=== PATIENT | male | born 1940 | race Caucasian/White ===

== ENCOUNTER 2016-12-05 07:41 | Outpatient (CLI) | payer MEDICARE, OTHER | END 2016-12-05 07:42 | disposition home or self-care (01) | DX: E11.65 Type 2 diabetes mellitus with hyperglycemia (principal) ==

== ENCOUNTER 2017-01-07 15:50 | Outpatient (CLI) | payer MEDICARE, OTHER | END 2017-01-07 15:51 | DX: R19.7 Diarrhea, unspecified (principal) ==

== ENCOUNTER 2017-01-08 13:00 | Outpatient (CLI) | payer MEDICARE, OTHER | END 2017-01-08 13:01 | disposition home or self-care (01) | DX: R19.7 Diarrhea, unspecified (principal) ==

== ENCOUNTER 2017-03-16 10:03 | Outpatient (CLI) | payer MEDICARE, OTHER | END 2017-03-16 10:04 | disposition home or self-care (01) | DX: J98.11 Atelectasis (principal); J94.8 Other specified pleural conditions ==

== ENCOUNTER 2017-03-19 07:09 | Outpatient (CLI) | payer MEDICARE, OTHER ==
[2017-03-19 13:45] LABS: BASOPHILS # (AUTO) 0.1 10^3/uL (0.0-0.1); BASOPHILS % (AUTO) 0.8 %; EOSINOPHILS # (AUTO) 0.2 10^3/uL (0.0-0.7); EOSINOPHILS % (AUTO) 2.6 %; HCT - HEMATOCRIT 36.6 % (42.0-52.0); HGB - HEMOGLOBIN 12.7 g/dL (14.0-18.0); LYMPHOCYTES # (AUTO) 2.4 10^3/uL (1.5-3.5); LYMPHOCYTES % (AUTO) 37.4 %; MEAN CORPUSCULAR HEMOGLOBIN 29.4 pg (27.0-31.0); MEAN CORPUSCULAR HGB CONC 34.7 g/dL (32.0-36.0); MEAN CORPUSCULAR VOLUME 84.6 fL (80.0-94.0); MEAN PLATELET VOLUME 9.3 fL (7.4-11.4); MONOCYTES # (AUTO) 0.7 10^3/uL (0.0-1.0); MONOCYTES % (AUTO) 10.6 %; NEUTROPHILS # (AUTO) 3.1 10^3/uL (1.5-6.6); NEUTROPHILS % (AUTO) 48.6 %; NUCLEATED RED BLOOD CELLS AUTO 0.1 /100WBC; RED BLOOD COUNT 4.33 10^6/uL (4.70-6.10); RED CELL DISTRIBUTION WIDTH 14.7 % (12.0-15.0); UNCORRECTED WHITE BLOOD COUNT 6.5 x10^3/uL; WHITE BLOOD COUNT 6.5 x10^3/uL (4.8-10.8)
[2017-03-19 14:05] LABS: ALBUMIN/GLOBULIN RATIO 1.1 (1.0-2.2); BILIRUBIN,TOTAL 0.4 mg/dL (0.2-1.0); BUN - BLOOD UREA NITROGEN 22 mg/dL (6-20); CALCIUM 8.8 mg/dL (8.5-10.3); CARBON DIOXIDE - CO2 22 mmol/L (21-32); CHLORIDE 107 mmol/L (101-111); CHOL/HDL RATIO 4.1 (<5.0); CHOLESTEROL 132 mg/dL; CREATININE 1.1 mg/dL (0.6-1.2); GFR - MDRD 65 (>89); GLUCOSE 243 mg/dL (70-100); HDL CHOLESTEROL 32 mg/dL; LDL/HDL RATIO 0.9 (<3.6); POTASSIUM 4.7 mmol/L (3.5-5.0); SODIUM 137 mmol/L (135-145); TRIGLYCERIDES 362 mg/dL; VLDL CHOLESTEROL 72 mg/dL
[2017-03-19 14:19] LABS: HEMOGLOBIN A1C 0.98 g/dL
== END 2017-03-19 07:10 | disposition home or self-care (01) ==
LOC: LAB.WCP 07:09
PROVIDERS: ATTEND Family Medicine
DX: E11.9 Type 2 diabetes mellitus without complications (principal)
CPT/HCPCS: 36415; 80053; 80061; 83036; 85025

== ENCOUNTER 2017-04-27 09:00 | Outpatient (CLI) | payer MEDICARE, OTHER ==
[2017-04-27] MEDS ORDERED: ALBUTEROL NEB 2.5 MG/3 ML INH ONE (09:38)
== END 2017-04-27 09:01 | disposition home or self-care (01) ==
LOC: RT 09:00
PROVIDERS: ATTEND Internal Medicine Critical Care Medicine
DX: J44.9 Chronic obstructive pulmonary disease, unspecified (principal)
CPT/HCPCS: 94060; 94729; 94761; J7613

== ENCOUNTER 2017-10-19 07:25 | Outpatient (CLI) | payer MEDICARE, OTHER ==
[2017-10-19 13:28] LABS: BASOPHILS % (AUTO) 0.6 %; EOSINOPHILS # (AUTO) 0.2 10^3/uL (0.0-0.7); EOSINOPHILS % (AUTO) 2.7 %; HCT - HEMATOCRIT 36.7 % (42.0-52.0); HGB - HEMOGLOBIN 12.7 g/dL (14.0-18.0); LYMPHOCYTES # (AUTO) 2.5 10^3/uL (1.5-3.5); LYMPHOCYTES % (AUTO) 39.2 %; MEAN CORPUSCULAR HEMOGLOBIN 29.1 pg (27.0-31.0); MEAN CORPUSCULAR HGB CONC 34.7 g/dL (32.0-36.0); MEAN PLATELET VOLUME 8.7 fL (7.4-11.4); MONOCYTES # (AUTO) 0.7 10^3/uL (0.0-1.0); MONOCYTES % (AUTO) 10.9 %; NEUTROPHILS % (AUTO) 46.6 %; NUCLEATED RED BLOOD CELLS AUTO 0.1 /100WBC; RED BLOOD COUNT 4.36 10^6/uL (4.70-6.10); RED CELL DISTRIBUTION WIDTH 14.6 % (12.0-15.0); UNCORRECTED WHITE BLOOD COUNT 6.4 x10^3/uL; WHITE BLOOD COUNT 6.4 x10^3/uL (4.8-10.8)
[2017-10-19 13:58] LABS: BILIRUBIN,TOTAL 0.3 mg/dL (0.2-1.0); BUN - BLOOD UREA NITROGEN 28 mg/dL (6-20); CARBON DIOXIDE - CO2 22 mmol/L (21-32); CHLORIDE 106 mmol/L (101-111); CHOL/HDL RATIO 3.4 (<5.0); CHOLESTEROL 112 mg/dL; CREATININE 1.1 mg/dL (0.6-1.2); GFR - MDRD 65 (>89); GLUCOSE 167 mg/dL (70-100); HDL CHOLESTEROL 33 mg/dL; LDL/HDL RATIO 0.3 (<3.6); POTASSIUM 4.7 mmol/L (3.5-5.0); SODIUM 135 mmol/L (135-145); TOTAL PROTEIN 7.4 g/dL (6.7-8.2); TRIGLYCERIDES 342 mg/dL; VLDL CHOLESTEROL 68 mg/dL
[2017-10-19 14:12] LABS: THYROID STIMULATING HORMONE 6.37 uIU/mL (0.34-5.60)
[2017-10-19 14:18] LABS: HEMOGLOBIN A1C 0.92 g/dL
== END 2017-10-19 07:26 | disposition home or self-care (01) ==
LOC: LAB.WCP 07:25
PROVIDERS: ATTEND Family Medicine
DX: E11.9 Type 2 diabetes mellitus without complications (principal)
CPT/HCPCS: 36415; 80053; 80061; 83036; 84439; 84443; 85025

== ENCOUNTER 2018-01-18 08:00 | Outpatient (CLI) | payer MEDICARE, OTHER ==
[2018-01-18 12:46] LABS: ALBUMIN 3.5 g/dL (3.2-5.5); ALBUMIN/GLOBULIN RATIO 1.2 (1.0-2.2); ALKALINE PHOSPHATASE 29 IU/L (42-121); ALT ALANINE AMINOTRANSFERASE 15 IU/L (10-60); AST ASPARTATE AMINOTRANSFERASE 18 IU/L (10-42); BILIRUBIN,TOTAL 0.3 mg/dL (0.2-1.0); BUN - BLOOD UREA NITROGEN 21 mg/dL (6-20); CALCIUM 8.1 mg/dL (8.5-10.3); CARBON DIOXIDE - CO2 20 mmol/L (21-32); CHLORIDE 105 mmol/L (101-111); CREATININE 1.1 mg/dL (0.6-1.2); GFR - MDRD 65 (>89); GLUCOSE 181 mg/dL (70-100); SODIUM 135 mmol/L (135-145); TOTAL PROTEIN 6.5 g/dL (6.7-8.2)
[2018-01-18 13:26] LABS: HB2 TOTAL 12.8 g/dL; HEMOGLOBIN A1C 0.86 g/dL; HEMOGLOBIN A1C % 8.3 % (4.6-6.2)
== END 2018-01-18 23:59 | disposition home or self-care (01) ==
LOC: LAB.WCP 08:00
PROVIDERS: ATTEND Family Medicine
DX: E11.9 Type 2 diabetes mellitus without complications (principal); E03.9 Hypothyroidism, unspecified
CPT/HCPCS: 36415; 80053; 83036; 84443

== ENCOUNTER 2018-04-06 09:07 | Outpatient (CLI) | payer MEDICARE, OTHER ==
--- NOTE | 2018-04-06 10:27 | CT Report ---
CT CHEST WITHOUT CONTRAST: 04/06/2018 CLINICAL INDICATION: Asbestosis. COMPARISON: 03/16/2017, 08/18/2016. TECHNIQUE: Axial CT images of the chest were obtained without intravenous contrast. FINDINGS: The heart and great vessels demonstrate atherosclerotic calcifications. No hilar or mediastinal lymphadenopathy is seen. The lungs again demonstrate scattered atelectasis. Pleural calcifications are stable. No suspicious pulmonary nodule or mass lesion is identified. No focal infiltrate, effusion, or pneumothorax. Limited evaluation of upper abdominal structures demonstrates normal adrenal glands. Osseous structures demonstrate degenerative changes. IMPRESSION: STABLE CHANGES OF PREVIOUS ASBESTOS EXPOSURE. NO SUSPICIOUS PULMONARY NODULE OR MASS LESION IS IDENTIFIED. CT DOSE REDUCTION STATEMENT In accordance with CT protocol optimization, one or more of the following dose reduction techniques were utilized for this exam: automated exposure control, adjustment of mA and/or KV based on patient size, or use of iterative reconstructive technique. TD: 04/06/2018 10:01
== END 2018-04-06 09:08 | disposition home or self-care (01) ==
LOC: DI 09:07
PROVIDERS: ATTEND Internal Medicine Critical Care Medicine
DX: J61 Pneumoconiosis due to asbestos and other mineral fibers (principal)
CPT/HCPCS: 71250

== ENCOUNTER 2018-04-21 07:58 | Outpatient (CLI) | payer MEDICARE, OTHER ==
[2018-04-21 13:18] LABS: HB2 TOTAL 13.4 g/dL; HEMOGLOBIN A1C 0.91 g/dL; HEMOGLOBIN A1C % 8.4 % (4.6-6.2)
[2018-04-21 13:26] LABS: ALBUMIN 3.2 g/dL (3.2-5.5); ALBUMIN/GLOBULIN RATIO 0.9 (1.0-2.2); ALKALINE PHOSPHATASE 38 IU/L (42-121); ALT ALANINE AMINOTRANSFERASE 19 IU/L (10-60); AST ASPARTATE AMINOTRANSFERASE 22 IU/L (10-42); BILIRUBIN,TOTAL 0.4 mg/dL (0.2-1.0); BUN - BLOOD UREA NITROGEN 24 mg/dL (6-20); CALCIUM 8.5 mg/dL (8.5-10.3); CARBON DIOXIDE - CO2 22 mmol/L (21-32); CHLORIDE 106 mmol/L (101-111); CHOL/HDL RATIO 3.7 (<5.0); CHOLESTEROL 119 mg/dL; CREATININE 1.1 mg/dL (0.6-1.2); GFR - MDRD 65 (>89); GLUCOSE 229 mg/dL (70-100); HDL CHOLESTEROL 32 mg/dL; SODIUM 133 mmol/L (135-145); TOTAL PROTEIN 6.9 g/dL (6.7-8.2)
[2018-04-21 13:55] LABS: LDL CHOLESTEROL,DIRECT 46 mg/dL; LDLD/HDL RATIO 1.4 (<3.6)
== END 2018-04-21 07:59 | disposition home or self-care (01) ==
LOC: LAB.WCP 07:58
PROVIDERS: ATTEND Family Medicine
DX: E11.9 Type 2 diabetes mellitus without complications (principal)
CPT/HCPCS: 36415; 80053; 80061; 82043; 83036; 83721

== ENCOUNTER 2018-04-26 08:00 | Outpatient (CLI) | payer MEDICARE, OTHER ==
[2018-04-26 12:39] LABS: BILIRUBIN,URINE NEGATIVE (NEGATIVE); GLUCOSE, URINE (UA) 100 mg/dL (NEGATIVE); KETONES,URINE (UA) NEGATIVE (NEGATIVE); LEUKOCYTE ESTERASE, URINE NEGATIVE (NEGATIVE); NITRITE,URINE NEGATIVE (NEGATIVE); OCCULT BLOOD,URINE NEGATIVE (NEGATIVE); PH,URINE 5.5 PH (5.0-7.5); PROTEIN,URINE 100 mg/dL (NEGATIVE); UROBILINOGEN,URINE 0.2 (NORMAL) E.U./dL (NORMAL)
[2018-04-26 12:44] LABS: CLARITY,URINE CLEAR (CLEAR)
[2018-04-26 12:56] LABS: BACTERIA,URINE Rare /HPF (None Seen); RBC,URINE 0-5 /HPF (0-5); SQUAMOUS EPITHELIAL CELL,UR NONE SEEN (<= Few)
== END 2018-04-26 08:01 ==
LOC: LAB.WCP 08:00
PROVIDERS: ATTEND Family Medicine
DX: R35.0 Frequency of micturition (principal); Z12.5 Encounter for screening for malignant neoplasm of prostate
CPT/HCPCS: 36415; 81001; G0103; 84153; 87086

== ENCOUNTER 2018-07-23 08:29 | Outpatient (CLI) | payer MEDICARE, OTHER ==
[2018-07-23 12:47] LABS: BASOPHILS # (AUTO) 0.1 10^3/uL (0.0-0.1); EOSINOPHILS # (AUTO) 0.2 10^3/uL (0.0-0.7); EOSINOPHILS % (AUTO) 3.6 %; HGB - HEMOGLOBIN 12.2 g/dL (14.0-18.0); LYMPHOCYTES % (AUTO) 35.3 %; MEAN CORPUSCULAR HEMOGLOBIN 29.9 pg (27.0-31.0); MEAN CORPUSCULAR HGB CONC 35.4 g/dL (32.0-36.0); MEAN CORPUSCULAR VOLUME 84.4 fL (80.0-94.0); MEAN PLATELET VOLUME 8.5 fL (7.4-11.4); MONOCYTES # (AUTO) 0.6 10^3/uL (0.0-1.0); MONOCYTES % (AUTO) 10.3 %; NEUTROPHILS # (AUTO) 2.9 10^3/uL (1.5-6.6); NEUTROPHILS % (AUTO) 49.8 %; PLT - PLATELET COUNT 176 10^3/uL (130-450); RED BLOOD COUNT 4.09 10^6/uL (4.70-6.10); RED CELL DISTRIBUTION WIDTH 14.6 % (12.0-15.0); WHITE BLOOD COUNT 5.8 x10^3/uL (4.8-10.8)
[2018-07-23 13:09] LABS: HB2 TOTAL 12.9 g/dL; HEMOGLOBIN A1C 0.88 g/dL; HEMOGLOBIN A1C % 8.4 % (4.6-6.2)
[2018-07-23 13:14] LABS: ALBUMIN 3.7 g/dL (3.2-5.5); ALBUMIN/GLOBULIN RATIO 1.1 (1.0-2.2); ALKALINE PHOSPHATASE 42 IU/L (42-121); ALT ALANINE AMINOTRANSFERASE 20 IU/L (10-60); AST ASPARTATE AMINOTRANSFERASE 23 IU/L (10-42); BILIRUBIN,TOTAL 0.3 mg/dL (0.2-1.0); BUN - BLOOD UREA NITROGEN 27 mg/dL (6-20); CALCIUM 8.5 mg/dL (8.5-10.3); CARBON DIOXIDE - CO2 21 mmol/L (21-32); CHLORIDE 106 mmol/L (101-111); CHOLESTEROL 121 mg/dL; CREATININE 1.3 mg/dL (0.6-1.2); GFR - MDRD 54 (>89); GLUCOSE 225 mg/dL (70-100); HDL CHOLESTEROL 30 mg/dL; SODIUM 132 mmol/L (135-145); TOTAL PROTEIN 7.1 g/dL (6.7-8.2)
[2018-07-23 14:42] LABS: LDL CHOLESTEROL,DIRECT 49 mg/dL; LDLD/HDL RATIO 1.6 (<3.6)
== END 2018-07-23 08:30 | disposition home or self-care (01) ==
LOC: LAB.WCP 08:29
PROVIDERS: ATTEND Family Medicine
DX: E11.9 Type 2 diabetes mellitus without complications (principal)
CPT/HCPCS: 36415; 80053; 80061; 83036; 83721; 85025

== ENCOUNTER 2018-10-22 08:00 | Outpatient (CLI) | payer MEDICARE, OTHER ==
[2018-10-22 14:03] LABS: CALCIUM 8.6 mg/dL (8.5-10.3); CREATININE 1.2 mg/dL (0.6-1.2)
[2018-10-22 14:17] LABS: HB2 TOTAL 12.2 g/dL; HEMOGLOBIN A1C 0.87 g/dL; HEMOGLOBIN A1C % 8.7 % (4.6-6.2)
== END 2018-10-22 23:59 | disposition home or self-care (01) ==
LOC: LAB.WCP 08:00
PROVIDERS: ATTEND Family Medicine
DX: E11.9 Type 2 diabetes mellitus without complications (principal)
CPT/HCPCS: 36415; 80048; 82043; 83036

== ENCOUNTER 2019-01-24 08:00 | Outpatient (CLI) | payer MEDICARE, OTHER ==
[2019-01-24 14:01] LABS: EOSINOPHILS # (AUTO) 0.2 10^3/uL (0.0-0.7); EOSINOPHILS % (AUTO) 3.6 %; LYMPHOCYTES # (AUTO) 1.8 10^3/uL (1.5-3.5); LYMPHOCYTES % (AUTO) 39.7 %; MEAN CORPUSCULAR HEMOGLOBIN 29.5 pg (27.0-31.0); MEAN CORPUSCULAR HGB CONC 34.6 g/dL (32.0-36.0); MEAN CORPUSCULAR VOLUME 85.2 fL (80.0-94.0); MEAN PLATELET VOLUME 8.6 fL (7.4-11.4); MONOCYTES # (AUTO) 0.8 10^3/uL (0.0-1.0); MONOCYTES % (AUTO) 16.5 %; NEUTROPHILS # (AUTO) 1.8 10^3/uL (1.5-6.6); NEUTROPHILS % (AUTO) 39.2 %; PLT - PLATELET COUNT 147 10^3/uL (130-450); RED BLOOD COUNT 4.06 10^6/uL (4.70-6.10); RED CELL DISTRIBUTION WIDTH 14.4 % (12.0-15.0); WHITE BLOOD COUNT 4.6 x10^3/uL (4.8-10.8)
[2019-01-24 14:28] LABS: ALBUMIN 3.4 g/dL (3.2-5.5); ALBUMIN/GLOBULIN RATIO 1.1 (1.0-2.2); ALKALINE PHOSPHATASE 35 IU/L (42-121); ALT ALANINE AMINOTRANSFERASE 16 IU/L (10-60); AST ASPARTATE AMINOTRANSFERASE 21 IU/L (10-42); BILIRUBIN,TOTAL 0.6 mg/dL (0.2-1.0); BUN - BLOOD UREA NITROGEN 26 mg/dL (6-20); CALCIUM 8.2 mg/dL (8.5-10.3); CARBON DIOXIDE - CO2 21 mmol/L (21-32); CHLORIDE 102 mmol/L (101-111); CHOL/HDL RATIO 3.4 (<5.0); CHOLESTEROL 92 mg/dL; CREATININE 1.2 mg/dL (0.6-1.2); GFR - MDRD 59 (>89); GLUCOSE 160 mg/dL (70-100); HDL CHOLESTEROL 27 mg/dL; LDL CHOLESTEROL,CALCULATED 19 mg/dL; LDL/HDL RATIO 0.7 (<3.6); SODIUM 132 mmol/L (135-145); TOTAL PROTEIN 6.6 g/dL (6.7-8.2); VLDL CHOLESTEROL 46 mg/dL
[2019-01-24 14:39] LABS: HB2 TOTAL 12.5 g/dL; HEMOGLOBIN A1C 0.82 g/dL; HEMOGLOBIN A1C % 8.2 % (4.6-6.2)
== END 2019-01-24 23:59 | disposition home or self-care (01) ==
LOC: LAB.WCP 08:00
PROVIDERS: ATTEND Family Medicine
DX: E11.9 Type 2 diabetes mellitus without complications (principal)
CPT/HCPCS: 36415; 80053; 80061; 82043; 83036; 83721; 85025

== ENCOUNTER 2019-04-26 08:00 | Outpatient (CLI) | payer MEDICARE, OTHER ==
[2019-04-26 12:42] LABS: ALBUMIN 3.6 g/dL (3.2-5.5); BILIRUBIN,TOTAL 0.5 mg/dL (0.2-1.0); CALCIUM 9.1 mg/dL (8.5-10.3); CREATININE 1.1 mg/dL (0.6-1.2); TOTAL PROTEIN 7.1 g/dL (6.7-8.2)
[2019-04-26 12:50] LABS: HB2 TOTAL 12.2 g/dL; HEMOGLOBIN A1C 0.73 g/dL; HEMOGLOBIN A1C % 7.6 % (4.6-6.2)
== END 2019-04-26 08:01 | disposition home or self-care (01) ==
LOC: LAB.WCP 08:00
PROVIDERS: ATTEND Family Medicine
DX: E11.9 Type 2 diabetes mellitus without complications (principal)
CPT/HCPCS: 36415; 80053; 83036

== ENCOUNTER 2019-07-04 06:49 | Day surgery (SDC) | payer MEDICARE, OTHER ==
[2019-07-04] MEDS ORDERED: LIDO GARGLE 30 ML BOTTLE ONE (07:26)
[2019-07-04] MEDS ORDERED: LACTATED RINGERS 1,000 ML IV ONE (07:26)
[2019-07-04] MEDS ORDERED: fentaNYL 250 MCG/5 ML VIAL IVP ONE (08:38)
[2019-07-04] MEDS ORDERED: MIDAZOLAM 2 MG/2 ML VIAL IVP ONE (08:38)
[2019-07-04] MEDS ORDERED: LIDO GARGLE 30 ML BOTTLE PO ONE (08:52)
[2019-07-04 10:20] VITALS: BP 142/58
== END 2019-07-04 06:50 | disposition home or self-care (01) ==
LOC: SDS 06:49
PROVIDERS: ATTEND Internal Medicine Gastroenterology
PROC: 0DBM8ZZ Excision of Descending Colon, Via Natural or Artificial Opening Endoscopic (ICD-10-PCS; 2019-07-04)
PROC: 0DB68ZX Excision of Stomach, Via Natural or Artificial Opening Endoscopic, Diagnostic (ICD-10-PCS; 2019-07-04)
PROC: 0DBH8ZZ Excision of Cecum, Via Natural or Artificial Opening Endoscopic (ICD-10-PCS; principal; 2019-07-04 08:30)
PROC: 0DBN8ZZ Excision of Sigmoid Colon, Via Natural or Artificial Opening Endoscopic (ICD-10-PCS; 2019-07-04 08:30)
DX: Z12.11 Encounter for screening for malignant neoplasm of colon (principal); K21.9 Gastro-esophageal reflux disease without esophagitis; K29.70 Gastritis, unspecified, without bleeding; D12.0 Benign neoplasm of cecum; D12.4 Benign neoplasm of descending colon; D12.5 Benign neoplasm of sigmoid colon; E11.42 Type 2 diabetes mellitus with diabetic polyneuropathy; E66.01 Morbid (severe) obesity due to excess calories; I10 Essential (primary) hypertension; Z79.899 Other long term (current) drug therapy; Z87.11 Personal history of peptic ulcer disease; Z87.891 Personal history of nicotine dependence; Z79.4 Long term (current) use of insulin; Z68.41 Body mass index [BMI] 40.0-44.9, adult
CPT/HCPCS: 43239; 45380; 45385; 87081; A9270; J3010; J7120

== ENCOUNTER 2019-07-18 12:17 | Outpatient (CLI) | payer MEDICARE, OTHER ==
[2019-07-18 12:20] LABS: BASOPHILS % (AUTO) 0.5 %; EOSINOPHILS # (AUTO) 0.2 10^3/uL (0.0-0.7); HGB - HEMOGLOBIN 11.9 g/dL (14.0-18.0); LYMPHOCYTES # (AUTO) 1.9 10^3/uL (1.5-3.5); LYMPHOCYTES % (AUTO) 29.9 %; MEAN CORPUSCULAR HEMOGLOBIN 28.3 pg (27.0-31.0); MEAN CORPUSCULAR HGB CONC 32.8 g/dL (32.0-36.0); MEAN CORPUSCULAR VOLUME 86.4 fL (80.0-94.0); MONOCYTES # (AUTO) 0.6 10^3/uL (0.0-1.0); MONOCYTES % (AUTO) 9.9 %; NEUTROPHILS # (AUTO) 3.6 10^3/uL (1.5-6.6); NEUTROPHILS % (AUTO) 56.1 %; PLT - PLATELET COUNT 195 10^3/uL (130-450); RED CELL DISTRIBUTION WIDTH 14.3 % (12.0-15.0); WHITE BLOOD COUNT 6.4 x10^3/uL (4.8-10.8)
[2019-07-18 12:28] LABS: ALBUMIN 3.5 g/dL (3.2-5.5); ALKALINE PHOSPHATASE 32 IU/L (42-121); ALT ALANINE AMINOTRANSFERASE 15 IU/L (10-60); AST ASPARTATE AMINOTRANSFERASE 17 IU/L (10-42); BILIRUBIN,TOTAL 0.5 mg/dL (0.2-1.0); BUN - BLOOD UREA NITROGEN 24 mg/dL (6-20); CALCIUM 8.6 mg/dL (8.5-10.3); CARBON DIOXIDE - CO2 23 mmol/L (21-32); CHLORIDE 106 mmol/L (101-111); CHOL/HDL RATIO 3.5 (<5.0); CHOLESTEROL 123 mg/dL; CREATININE 1.2 mg/dL (0.6-1.2); GFR - MDRD 59 (>89); GLUCOSE 164 mg/dL (70-100); HDL CHOLESTEROL 35 mg/dL; LDL CHOLESTEROL,CALCULATED 27 mg/dL; LDL/HDL RATIO 0.8 (<3.6); SODIUM 137 mmol/L (135-145); TOTAL PROTEIN 6.9 g/dL (6.7-8.2); VLDL CHOLESTEROL 61 mg/dL
[2019-07-18 12:58] LABS: HB2 TOTAL 12.4 g/dL; HEMOGLOBIN A1C 0.77 g/dL; HEMOGLOBIN A1C % 7.8 % (4.6-6.2)
== END 2019-07-18 23:59 | disposition home or self-care (01) ==
LOC: LAB.WCP 12:17
PROVIDERS: ATTEND Family Medicine
DX: E11.9 Type 2 diabetes mellitus without complications (principal)
CPT/HCPCS: 36415; 80053; 80061; 83036; 83721; 85025

== ENCOUNTER 2019-09-29 23:18 | Outpatient (CLI) | payer MEDICARE, OTHER | END 2019-09-29 23:19 | disposition critical access hospital (66) | LOC: EMS 23:18 | PROVIDERS: ATTEND Surgery | DX: M54.5 Low back pain (principal) | CPT/HCPCS: A0425; A0429 ==

== ENCOUNTER 2019-09-29 23:33 | Emergency (ER) | payer MEDICARE, OTHER ==
--- NOTE | 2019-09-30 00:48 | ED Physician Documentation ---
PD HPI BACK PAIN - Stated complaint Stated Complaint: BACK PAIN - Chief complaint Chief Complaint: Back Pain - History obtained from History obtained from: Patient - History of Present Illness Timing - onset: Yesterday Timing - details: Abrupt onset Location: Lower Quality: Pain Associated symptoms: Numbness (Chronic numbness of the feet due to diabetic neuropathy). No: Fever, Weakness, Incontinent of urine, Unable to urinate, Incontinent of stool Improves with: Position Worsened by: Movement, Lifting, Twisting Recently seen: Not recently seen - Additional information Additional information: This is a 79-year-old man who presents with complaints that yesterday he turned wrong and pulled a muscle lower back he was kind of mottling through today mainly in his chair and getting up and hobbling back and forth to the bathroom and then tonight he got out of the shower approximately 3 to 3-1/2 hours prior to presentation and he just "turned wrong" and the pain became excruciating with any type of movement. He says it is center in the lower back describes the area of the gluteal crease. He does not have any pain rating radiating down his legs but he does have prior neuropathy due to diabetes and his feet are chronically asleep. He denies urinary incontinence and he did not fall. After this happened the night he went and tried to get into bed he could not get comfo rtable so he got up and got into his sleep chair and then he was stuck he just could not get comfortable and he could not get up. They called the ambulance to come for assistance. He did not take anything at home for pain because he does not have any prescription pain medications and he cannot take ibuprofen or Tylenol. Is also had a reaction to morphine in the past. He has tolerated hydrocodone with hydroxyzine and also tolerated oxycodone without the acetaminophen. Patient has had prior to prior total knee replacements. And he says he has a prior naval injury where he "destroyed" his lower spine. Review of Systems Constitutional: denies: Fever Respiratory: reports: Dyspnea (He has COPD) GI: denies: Nausea, Vomiting : denies: Dysuria, Incontinent, Hematuria Musculoskeletal: reports: Back pain. denies: Extremity pain, Joint pain, Extremity swelling Neurologic: reports: Numbness (Pre-existing neuropathy). denies: Focal weakness PD PAST MEDICAL HISTORY - Past Medical History Cardiovascular: Hypertension, High cholesterol Respiratory: COPD, Shortness of breath, Sleep apnea, CPAP use Endocrine/Autoimmune: Type 2 diabetes GI: GERD, GI bleed, Ulcers : Nocturia, Frequency HEENT: Chronic hearing loss Psych: None Musculoskeletal: Osteoarthritis Derm: Psoriasis - Past Surgical History General: Cholecystectomy, Other Ortho: Knee replacement - Present Medications Home Medications: Ambulatory Orders Medication Instructions Recorded Confirmed Aspirin 81 mg PO DAILY 09/18/16 09/18/16 metFORMIN [Glucophage] 500 mg PO BIDWM 09/18/16 09/18/16 Albuterol Sulf [Ventolin Hfa 1 - 2 puffs INH Q4HR PRN 09/19/16 09/19/16 Inhaler] Adalimumab [Humira] 40 mg SQ 07/04/19 Allopurinol [Zyloprim] 300 mg PO DAILY 07/04/19 07/04/19 Azilsartan Medoxomil [Edarbi] 80 mg PO DAILY 07/04/19 07/04/19 Carvedilol [Coreg] 25 mg PO BID 07/04/19 07/04/19 Chlorthalidone 25 mg PO DAILY 07/04/19 07/04/19 Fluticasone Propionate 16 gm NS BID 07/04/19 07/04/19 Hydralazine HCl 50 mg PO BID 07/04/19 07/04/19 Insulin Aspart [NovoLOG] 12 unit SUBQ TIDWM 07/04/19 07/04/19 Insulin Aspart [Novolog] 60 unit SQ DAILY PM 07/04/19 07/04/19 Insulin Glargine [Lantus Solostar] 40 unit SQ DAILY 07/04/19 07/04/19 Levothyroxine [Synthroid] 75 mcg PO QDAC 07/04/19 07/04/19 Simvastatin 10 mg PO DAILY 07/04/19 07/04/19 Tiotropium Br/Olodaterol HCl 4 gm IH BID 07/04/19 07/04/19 [Stiolto Respimat Inhal [place]] raNITIdine [Zantac] 150 mg PO DAILY 07/04/19 07/04/19 Lidocaine Patch 5% [Lidoderm Patch] 1 each TOP DAILY #10 patch 09/30/19 oxyCODONE [Roxicodone] 5 mg PO Q4-6H #10 tablet 09/30/19 - Allergies Allergies/Adverse Reactions: Allergies Allergy/AdvReac Type Severity Reaction Status Date / Time PAOLO Inhibitors Allergy Mild Dizziness Verified 07/04/19 07:38 codeine Allergy Mild Rash Verified 07/04/19 07:38 fluticasone propionate * Allergy Unknown Verified 07/04/19 07:38 [From Advair Diskus] hydrocodone Allergy Itching Verified 07/04/19 07:38 morphine Allergy Rash Verified 07/04/19 07:38 pollen extracts Allergy Unknown Verified 07/04/19 07:38 salmeterol xinafoate * Allergy Unknown Verified 07/04/19 07:38 [From Advair Diskus] - Social History Does the pt smoke?: No Smoking Status: Never smoker Does the pt drink ETOH?: No Does the pt have substance abuse?: No - Immunizations Immunizations are current?: Yes - POLST Patient has POLST: No PD ED PE NORMAL - Vitals Vital signs reviewed: Yes - General General: Alert and oriented X 3, No acute distress, Well developed/nourished - HEENT HEENT: Atraumatic, PERRL - Cardiac Cardiac: RRR - Respiratory Respiratory: No respiratory distress - Abdomen Abdomen: Normal bowel sounds, Soft, Non tender, Other (Patient is obese) - Derm Derm: Normal color, Warm and dry, No rash - Neuro Neuro: Alert and oriented X 3, marker assembler 2-12 intact, No motor deficit, Normal speech, Other (He is able to pull both legs up off the bed flexing at the hip but it is painful. Could not elicit reflexes he has had prior total knee replacements. Sensation is diminished in the feet bilaterally.) - Psych Psych: Normal mood, Normal affect Results - Vitals Vitals: Vital Signs - 24 hr 09/29/19 09/30/19 23:45 01:39 Temperature 37.3 C Heart Rate 67 58 L Respiratory 16 17 Rate Blood Pressure 232/97 H 160/59 H O2 Saturation 96 96 Oxygen O2 Source Room air PD MEDICAL DECISION MAKING - ED course Complexity details: d/w patient ED course: Patient was given 1 mg of Dilaudid IM and 25 mg of Phenergan. When I went back into reevaluate him he was still laying flat on his back but gave me the thumbs up and said that he was feeling so much better. We talked about setting him up but is I even tried to raise the head of the bed he started gripping the side rails again and stating that it was stopped there and give him bit more time before trying to get him up. 0240: Patient is still having pain when he moves. We discussed putting a lidocaine patch on which he thought was a great idea because that is what "[employer]" advertises on TV. We do not have prepacks of oxycodone acetaminophen so I am going to give him one oxycodone tablet here. Plan for discharge with prescriptions for lidocaine patch and oxycodone. Outpatient follow-up with his primary care provider for continued pain. Departure - Departure Disposition: Home, Self Care Clinical Impression: Back pain Qualifiers: Back pain location: low back pain Chronicity: acute Back pain laterality: midline Sciatica presence: without sciatica Qualified Code(s): M54.5 - Low back pain Condition: Good Instructions: ED Back Care Tips, ED Spasm Back No Trauma Follow-Up: Ousmane Currie DO [Primary Care Provider] - Prescriptions: Lidocaine Patch 5% [Lidoderm Patch] 1 each TOP DAILY #10 patch oxyCODONE [Roxicodone] 5 mg PO Q4-6H #10 tablet Comments: Use the lidocaine patch on the lower back. You have been given a prescription for oxycodone without the acetaminophen to use if needed for pain. Gentle stretching exercises are appropriate. Follow-up with your primary care provider if you have continued pain and need further pain management.
[2019-09-30] MEDS ORDERED: HYDROmorphone 1 MG/ML CARPUJECT IM STA (00:49)
[2019-09-30] MEDS ORDERED: PROMETHAZINE 25 MG/1 ML VIAL IM STA (00:49)
[2019-09-30] MEDS ORDERED: LIDOCAINE PATCH 5% TOP STA (02:38)
[2019-09-30] MEDS ORDERED: oxyCODONE 5 MG TABLET PO STA (02:39)
[2019-09-30 03:00] VITALS: BP 147/52
== END 2019-09-30 02:59 | disposition home or self-care (01) ==
LOC: EDUNIT# → ED 23:33
DX: M54.5 Low back pain (principal); E11.42 Type 2 diabetes mellitus with diabetic polyneuropathy; Z79.4 Long term (current) use of insulin; I10 Essential (primary) hypertension; J44.9 Chronic obstructive pulmonary disease, unspecified; Z79.82 Long term (current) use of aspirin
CPT/HCPCS: 96372; 99283; 99284; A9270; J1170

== ENCOUNTER 2019-10-03 08:22 | Outpatient (CLI) | payer MEDICARE, OTHER ==
--- NOTE | 2019-10-04 09:32 | Ultrasound Report ---
Reason: DIABETIC PERIPHERAL NEUROPATHY, DM Procedure Date: 10/03/2019 Accession Number: [id number] / [id number] Procedure: US - Ankle Brachial Index CPT Code: Addended Final Report FULL RESULT: EXAM: BILATERAL ANKLE/BRACHIAL INDEX EXAM DATE: 10/03/2019 10:02 AM. CLINICAL HISTORY: Diabetic peripheral neuropathy, diabetes mellitus. COMPARISON: None. TECHNIQUE: A blood pressure cuff and pulse volume recording Doppler ultrasound was used to evaluate the arterial pressures in the arms and ankle. No images were acquired. FINDINGS: Brachial pressure: Right brachial artery: 215/71 mmHg, index 1.00. Left brachial artery: 220/79 mmHg, index 1.00. Right ankle pressures: Posterior tibial artery: 233/76 mmHg, index 1.08. Dorsalis pedis artery is patent by spectral Doppler with brisk systolic upstroke, preserved waveform. Posterior tibial artery is patent by color Doppler with brisk systolic upstroke on spectral Doppler, 74 cm/s, peak systolic velocity of 122 cm/s. Left ankle pressures: Posterior tibial artery: 252/87 mmHg, index 1.14. Dorsalis pedis arteries preserved by color Doppler with peak systolic velocity of 124 cm/s by spectral Doppler, posterior tibial arteries preserved by color Doppler with peak systolic velocity of 132 cm/s by spectral Doppler. IMPRESSION: 1. Right ankle/brachial index: 1.08. 2. Left ankle/brachial index: 1.14. Bilateral preserved arterial waveforms and posterior tibial arteries and dorsalis pedis artery. Markedly elevated blood pressures. While medial calcinosis can generate falsely elevated ZOLTAN as well as blood pressure readings, measurements should be correlated to the patient's known blood pressure measurements and antihypertensive regimen. ANKLE/BRACHIAL INDEX REFERENCE STANDARDS 1.0-1.4: Normal 0.90-0.99: Borderline RADIA The call report notification system was initiated by Dr. Rakesh Bautista at 09:29 AM on 10/04/2019. ADDENDUM: 10/04/19 10:38 The above call report findings were discussed with Ousmane Currie by Dr. Rakesh Bautista at 10:38 AM on 10/04/2019.
== END 2019-10-03 08:23 | disposition home or self-care (01) ==
LOC: DI 08:22
PROVIDERS: ATTEND Family Medicine
DX: E11.42 Type 2 diabetes mellitus with diabetic polyneuropathy (principal); R03.0 Elevated blood-pressure reading, without diagnosis of hypertension
CPT/HCPCS: 93922

== ENCOUNTER 2019-10-17 08:00 | Outpatient (CLI) | payer MEDICARE, OTHER ==
[2019-10-17 12:37] LABS: BASOPHILS % (AUTO) 0.5 %; EOSINOPHILS # (AUTO) 0.2 10^3/uL (0.0-0.7); EOSINOPHILS % (AUTO) 3.5 %; HGB - HEMOGLOBIN 12.4 g/dL (14.0-18.0); LYMPHOCYTES # (AUTO) 1.6 10^3/uL (1.5-3.5); LYMPHOCYTES % (AUTO) 27.5 %; MEAN CORPUSCULAR HEMOGLOBIN 27.6 pg (27.0-31.0); MEAN CORPUSCULAR VOLUME 86.2 fL (80.0-94.0); MEAN PLATELET VOLUME 10.7 fL (7.4-11.4); MONOCYTES # (AUTO) 0.5 10^3/uL (0.0-1.0); MONOCYTES % (AUTO) 8.5 %; NEUTROPHILS # (AUTO) 3.4 10^3/uL (1.5-6.6); NEUTROPHILS % (AUTO) 59.5 %; PLT - PLATELET COUNT 201 10^3/uL (130-450); RED BLOOD COUNT 4.49 10^6/uL (4.70-6.10); RED CELL DISTRIBUTION WIDTH 13.7 % (12.0-15.0); WHITE BLOOD COUNT 5.8 x10^3/uL (4.8-10.8)
[2019-10-17 12:50] LABS: ALBUMIN 3.7 g/dL (3.2-5.5); BILIRUBIN,TOTAL 0.6 mg/dL (0.2-1.0); CALCIUM 9.4 mg/dL (8.5-10.3); CREATININE 1.1 mg/dL (0.6-1.2); TOTAL PROTEIN 7.4 g/dL (6.7-8.2)
[2019-10-17 13:17] LABS: HB2 TOTAL 12.4 g/dL; HEMOGLOBIN A1C 0.57 g/dL; HEMOGLOBIN A1C % 6.4 % (4.6-6.2)
== END 2019-10-17 23:59 | disposition home or self-care (01) ==
LOC: LAB.WCP 08:00
PROVIDERS: ATTEND Family Medicine
DX: E11.9 Type 2 diabetes mellitus without complications (principal); E03.9 Hypothyroidism, unspecified; I10 Essential (primary) hypertension
CPT/HCPCS: 36415; 80053; 83036; 84443; 85025

== ENCOUNTER 2020-01-26 08:00 | Outpatient (CLI) | payer MEDICARE, OTHER ==
[2020-01-26 12:08] LABS: BASOPHILS % (AUTO) 0.6 %; EOSINOPHILS # (AUTO) 0.2 10^3/uL (0.0-0.7); EOSINOPHILS % (AUTO) 2.4 %; HGB - HEMOGLOBIN 11.6 g/dL (14.0-18.0); LYMPHOCYTES # (AUTO) 1.8 10^3/uL (1.5-3.5); MEAN CORPUSCULAR HEMOGLOBIN 28.1 pg (27.0-31.0); MEAN CORPUSCULAR VOLUME 87.9 fL (80.0-94.0); MEAN PLATELET VOLUME 10.5 fL (7.4-11.4); MONOCYTES # (AUTO) 0.6 10^3/uL (0.0-1.0); MONOCYTES % (AUTO) 8.5 %; NEUTROPHILS # (AUTO) 4.4 10^3/uL (1.5-6.6); NEUTROPHILS % (AUTO) 62.2 %; PLT - PLATELET COUNT 197 10^3/uL (130-450); RED BLOOD COUNT 4.13 10^6/uL (4.70-6.10); RED CELL DISTRIBUTION WIDTH 14.4 % (12.0-15.0)
[2020-01-26 12:15] LABS: ALBUMIN 3.8 g/dL (3.2-5.5); ALBUMIN/GLOBULIN RATIO 1.1 (1.0-2.2); ALKALINE PHOSPHATASE 30 IU/L (42-121); ALT ALANINE AMINOTRANSFERASE 15 IU/L (10-60); AST ASPARTATE AMINOTRANSFERASE 14 IU/L (10-42); BILIRUBIN,TOTAL 0.6 mg/dL (0.2-1.0); BUN - BLOOD UREA NITROGEN 31 mg/dL (6-20); CALCIUM 8.4 mg/dL (8.5-10.3); CARBON DIOXIDE - CO2 22 mmol/L (21-32); CHLORIDE 108 mmol/L (101-111); CHOL/HDL RATIO 2.8 (<5.0); CHOLESTEROL 87 mg/dL; CREATININE 1.3 mg/dL (0.6-1.2); GFR - MDRD 54 (>89); GLUCOSE 64 mg/dL (70-100); HDL CHOLESTEROL 31 mg/dL; LDL CHOLESTEROL,CALCULATED 30 mg/dL; SODIUM 137 mmol/L (135-145); TOTAL PROTEIN 7.3 g/dL (6.7-8.2); VLDL CHOLESTEROL 26 mg/dL
[2020-01-26 16:13] LABS: HB2 TOTAL 11.8 g/dL; HEMOGLOBIN A1C 0.52 g/dL; HEMOGLOBIN A1C % 6.2 % (4.6-6.2)
== END 2020-01-26 23:59 | disposition home or self-care (01) ==
LOC: LAB.WCP 08:00
PROVIDERS: ATTEND Family Medicine
DX: E11.9 Type 2 diabetes mellitus without complications (principal)
CPT/HCPCS: 36415; 80053; 80061; 83036; 83721; 85025

== ENCOUNTER 2020-05-22 12:24 | Outpatient (CLI) | payer MEDICARE, OTHER | END 2020-05-22 12:25 | disposition critical access hospital (66) | LOC: EMS 12:24 | PROVIDERS: ATTEND Surgery | DX: R06.02 Shortness of breath (principal); R07.89 Other chest pain | CPT/HCPCS: A0425; A0427 ==

== ENCOUNTER 2020-05-22 12:48 | Emergency (ER) | payer MEDICARE, OTHER ==
--- NOTE | 2020-05-22 13:05 | ED Physician Documentation ---
PD HPI CHEST PAIN - Stated complaint Stated Complaint: SOA/CHEST TIGHTNESS - Chief complaint Chief Complaint: Cardiac - History obtained from History obtained from: Patient - History of Present Illness Timing - onset: How many days ago (5) Timing - onset during: Rest Timing - duration: Days (5) Timing - details: Gradual onset, Still present Quality: Pressure, Tightness Location: Substernal, Left chest Improved by: Rest, Oxygen, Other medication Worsened by: Inspiration, Movement, Palpation Associated symptoms: Shortness of air, Cough. No: Diaphoresis, Nausea, Vomiting, Feeling faint / dizzy, General Weakness, Palpitations Similar symptoms before: Diagnosis (COPD) Recently seen: Clinic - Additional information Additional information: 79-year-old diabetic male with a history of COPD has had some trees cut down in the lot next to him and this dust has made his COPD worse. He states that he does get some relief when he is on his CPAP at night but during the day he is having some difficulty and having to use his rescue inhaler 6 times per day. He went in to see his doctor today and they put him in an ambulance and appear to the hospital. Review of Systems Constitutional: denies: Fever, Myalgias, Fatigue Eyes: denies: Decreased vision Ears: denies: Ear pain Nose: denies: Rhinorrhea / runny nose, Congestion Throat: denies: Sore throat Cardiac: reports: Chest pain / pressure. denies: Palpitations, Pedal edema, Calf pain Respiratory: reports: Dyspnea, Cough, Wheezing GI: denies: Abdominal Pain, Abdominal Swelling, Nausea, Vomiting : denies: Dysuria PD PAST MEDICAL HISTORY - Past Medical History Cardiovascular: Hypertension, High cholesterol Respiratory: COPD, Shortness of breath, Sleep apnea, CPAP use Endocrine/Autoimmune: Type 2 diabetes GI: GERD, GI bleed, Ulcers : Nocturia, Frequency HEENT: Chronic hearing loss Psych: None Musculoskeletal: Osteoarthritis Derm: Psoriasis - Past Surgical History General: Cholecystectomy, Other Ortho: Knee replacement - Present Medications Home Medications: Ambulatory Orders Medication Instructions Recorded Confirmed Aspirin 81 mg PO DAILY 09/18/16 09/18/16 metFORMIN [Glucophage] 500 mg PO BIDWM 09/18/16 09/18/16 Albuterol Sulf [Ventolin Hfa 1 - 2 puffs INH Q4HR PRN 09/19/16 09/19/16 Inhaler] Adalimumab [Humira] 40 mg SQ 07/04/19 Allopurinol [Zyloprim] 300 mg PO DAILY 07/04/19 07/04/19 Azilsartan Medoxomil [Edarbi] 80 mg PO DAILY 07/04/19 07/04/19 Carvedilol [Coreg] 25 mg PO BID 07/04/19 07/04/19 Chlorthalidone 25 mg PO DAILY 07/04/19 07/04/19 Fluticasone Propionate 16 gm NS BID 07/04/19 07/04/19 Hydralazine HCl 50 mg PO BID 07/04/19 07/04/19 Insulin Aspart [NovoLOG] 12 unit SUBQ TIDWM 07/04/19 07/04/19 Insulin Aspart [Novolog] 60 unit SQ DAILY PM 07/04/19 07/04/19 Insulin Glargine [Lantus Solostar] 40 unit SQ DAILY 07/04/19 07/04/19 Levothyroxine [Synthroid] 75 mcg PO QDAC 07/04/19 07/04/19 Simvastatin 10 mg PO DAILY 07/04/19 07/04/19 Tiotropium Br/Olodaterol HCl 4 gm IH BID 07/04/19 07/04/19 [Stiolto Respimat Inhal [place]] raNITIdine [Zantac] 150 mg PO DAILY 07/04/19 07/04/19 Lidocaine Patch 5% [Lidoderm Patch] 1 each TOP DAILY #10 patch 09/30/19 oxyCODONE [Roxicodone] 5 mg PO Q4-6H #10 tablet 09/30/19 Azithromycin [Zithromax] 250 mg PO DAILY #6 tablet 05/22/20 predniSONE [Deltasone] 10 mg PO ONCE #26 tablet 05/22/20 - Allergies Allergies/Adverse Reactions: Allergies Allergy/AdvReac Type Severity Reaction Status Date / Time PAOLO Inhibitors Allergy Mild Dizziness Verified 05/22/20 12:59 codeine Allergy Mild Rash Verified 05/22/20 12:59 exenatide [From [place]] Allergy Unknown Verified 05/22/20 12:59 fluticasone propionate * Allergy Unknown Verified 05/22/20 12:59 [From Advair Diskus] hydrocodone Allergy Itching Verified 05/22/20 12:59 morphine Allergy Rash Verified 05/22/20 12:59 pollen extracts Allergy Unknown Verified 05/22/20 12:59 salmeterol xinafoate * Allergy Unknown Verified 05/22/20 12:59 [From Advair [place]] - Social History Does the pt smoke?: No Smoking Status: Never smoker Does the pt drink ETOH?: No Does the pt have substance abuse?: No - Immunizations Immunizations are current?: Yes - POLST Patient has POLST: No PD ED PE NORMAL - Vitals Vital signs reviewed: Yes (hypertensive ) - General General: Alert and oriented X 3, No acute distress, Well developed/nourished - HEENT HEENT: Atraumatic, PERRL, EOMI, Other (right TM is clear, Left TM is obscurred by cerumen distally ) - Neck Neck: Supple, no meningeal sign, No bony TTP - Cardiac Cardiac: RRR, No murmur - Respiratory Respiratory: No respiratory distress, Clear bilaterally, Other (dimidinshed breath sounds. ) - Abdomen Abdomen: Soft, Non tender - Back Back: No CVA TTP, No spinal TTP - Derm Derm: Normal color, Warm and dry, No rash - Extremities Extremities: No deformity, No edema, No calf tenderness / cord - Neuro Neuro: Alert and oriented X 3, pipe recovery specialist 2-12 intact, No motor deficit, No sensory deficit, Normal speech Eye Opening: Spontaneous Motor: Obeys Commands Verbal: Oriented GCS Score: 15 - Psych Psych: Normal mood, Normal affect Results - Vitals Vitals: Vital Signs - 24 hr 05/22/20 12:59 Temperature 36.8 C Heart Rate 91 Respiratory 24 Rate Blood Pressure 215/63 H O2 Saturation 96 Oxygen O2 Source Room air - EKG (time done) 1254 Rate: Rate (enter#) (67) Rhythm: NSR [place]: LAD Intervals: RBBB Compare to prior EKG: Old EKG unavailable Computer interpretation: Agree with computer - Labs Labs: Laboratory Tests 05/22/20 05/22/20 05/22/20 13:26 13:26 13:26 WBC 6.4 RBC 3.44 L Hgb 9.9 L Hct 30.2 L MCV 87.8 MCH 28.8 MCHC 32.8 RDW 15.4 H Plt Count 163 MPV 9.3 Neut # (Auto) 4.1 Lymph # (Auto) 1.5 [place] # (Auto) 0.5 Eos # (Auto) 0.2 Baso # (Auto) 0.0 Absolute Nucleated RBC 0.00 Nucleated RBC % 0.0 Sodium 139 Potassium 4.6 Chloride 106 Carbon Dioxide 21 Anion Gap 12.0 BUN 30 H Creatinine 1.3 H Estimated GFR (MDRD) 54 L Glucose 151 H Calcium 8.7 Total Bilirubin 0.6 AST 14 ALT 15 Alkaline Phosphatase 39 L Troponin I High Sens 6.5 Total Protein 7.3 Albumin 3.6 Globulin 3.7 Albumin/Globulin Ratio 1.0 Lipase 39 - Rads (name of study) chest Radiology: Prelim report reviewed (Impression: Cardiomegaly and mild pulmonary vascular congestion. No focal infiltrate, pleural effusion or pneumothorax), EMP read indepedently, See rad report PD MEDICAL DECISION MAKING - ED course Complexity details: reviewed results, re-evaluated patient, considered differential, d/w patient ED course: 79-year-old male with a history of COPD has an exacerbation of his symptoms related to clearing of land next to his property. He is administered some Solu- Medrol 125 mg intravenously and he does have some regular insulin to follow this up with at home. We will place him on a course of prednisone and he is 79 with other comorbidities we will place him on antibiotic as well. Departure - Departure Disposition: 01 Home, Self Care Clinical Impression: Asthma exacerbation in COPD Condition: Stable Instructions: ED COPD Flare Follow-Up: Ousmane Currie DO [Primary Care Provider] - Prescriptions: predniSONE [Deltasone] 10 mg PO ONCE #26 tablet Azithromycin [Zithromax] 250 mg PO DAILY #6 tablet
[2020-05-22] MEDS ORDERED: methylPREDNISolone SUCCINATE 125 MG/2 ML VIAL IVP STA (13:30)
[2020-05-22] MEDS ORDERED: IPRATROPIUM/ALBUTEROL 3 ML NEB INH STA (13:30)
[2020-05-22 13:38] LABS: BASOPHILS % (AUTO) 0.6 %; EOSINOPHILS # (AUTO) 0.2 10^3/uL (0.0-0.7); EOSINOPHILS % (AUTO) 2.5 %; HGB - HEMOGLOBIN 9.9 g/dL (14.0-18.0); LYMPHOCYTES # (AUTO) 1.5 10^3/uL (1.5-3.5); LYMPHOCYTES % (AUTO) 23.1 %; MEAN CORPUSCULAR HEMOGLOBIN 28.8 pg (27.0-31.0); MEAN CORPUSCULAR HGB CONC 32.8 g/dL (32.0-36.0); MEAN CORPUSCULAR VOLUME 87.8 fL (80.0-94.0); MEAN PLATELET VOLUME 9.3 fL (7.4-11.4); MONOCYTES # (AUTO) 0.5 10^3/uL (0.0-1.0); MONOCYTES % (AUTO) 8.3 %; NEUTROPHILS # (AUTO) 4.1 10^3/uL (1.5-6.6); PLT - PLATELET COUNT 163 10^3/uL (130-450); RED BLOOD COUNT 3.44 10^6/uL (4.70-6.10); RED CELL DISTRIBUTION WIDTH 15.4 % (12.0-15.0); WHITE BLOOD COUNT 6.4 x10^3/uL (4.8-10.8)
--- NOTE | 2020-05-22 13:47 | XRAY Report ---
PROCEDURE: Chest 1 View X-Ray INDICATIONS: Chest Pain TECHNIQUE: One view of the chest was acquired. COMPARISON: CT of chest dated 04/06/2018 FINDINGS: Surgical changes and devices: None. Lungs and pleura: No pleural effusions or pneumothorax. Mild congestive changes are seen. No definit e focal infiltrate. Mediastinum: Mediastinal contours appear normal. Heart size is enlarged. Bones and chest wall: No suspicious bony lesions. Overlying soft tissues appear unremarkable. IMPRESSION: Cardiomegaly and mild pulmonary vascular congestion. No focal infiltrate, pleural effusion or pneumot horax. Reviewed by: Minor Pena MD on 05/22/2020 1:46 PM PDT Approved by: Minor Pena MD on 05/22/2020 1:46 PM PDT Station ID: [id number]
[2020-05-22] MEDS: ALBUTEROL 1 PUFF INH STA ×2 (14:00→14:28)
[2020-05-22 14:02] LABS: ALBUMIN 3.6 g/dL (3.2-5.5); BILIRUBIN,TOTAL 0.6 mg/dL (0.2-1.0); CALCIUM 8.7 mg/dL (8.5-10.3); CREATININE 1.3 mg/dL (0.6-1.2); TOTAL PROTEIN 7.3 g/dL (6.7-8.2)
[2020-05-22 14:30] VITALS: BP 170/90
== END 2020-05-22 14:28 | disposition home or self-care (01) ==
LOC: EDUNIT# → ED 12:48
DX: J44.1 Chronic obstructive pulmonary disease with (acute) exacerbation (principal); Z77.110 Contact with and (suspected) exposure to air pollution; Z20.828 Contact with and (suspected) exposure to other viral communicable diseases; I45.2 Bifascicular block; I49.1 Atrial premature depolarization; I10 Essential (primary) hypertension; E11.9 Type 2 diabetes mellitus without complications; Z79.4 Long term (current) use of insulin; Z79.82 Long term (current) use of aspirin
CPT/HCPCS: 36415; 71045; 80053; 83690; 84484; 85025; 93005; 94640; 96374; 99284; U0004

== ENCOUNTER 2020-05-29 13:32 | Outpatient (CLI) | payer MEDICARE, OTHER | END 2020-05-29 13:33 | disposition critical access hospital (66) | LOC: EMS 13:32 | PROVIDERS: ATTEND Surgery | DX: R06.02 Shortness of breath (principal); R42 Dizziness and giddiness; R07.89 Other chest pain | CPT/HCPCS: A0425; A0427 ==

== ENCOUNTER 2020-05-29 13:52 | Inpatient (IN) | payer MEDICARE, OTHER ==
--- NOTE | 2020-05-29 14:19 | ED Physician Documentation ---
PD HPI DYSPNEA - Stated complaint Stated Complaint: SOA - Chief complaint Chief Complaint: Cardiac - History obtained from History obtained from: Patient - History of Present Illness Timing - onset: How many weeks ago (1) Timing - onset during: Rest Timing - duration: Weeks (1) Timing - details: Gradual onset, Still present, Waxing and waning Inciting event(s): Allergic rxn/anaphylaxis Improved by: BiPAP / CPAP, Rest, Sitting up Worsened by: Exertion, Laying flat Associated symptoms: Bilateral edema. No: Fever, Cough, Hemoptysis, Wheezing, Chest pain / discomfort Similar symptoms before: Diagnosis (COPD) Recently seen: Emergency Dept - Additional information Additional information: 79-year-old male who presented with shortness of breath he thought was related to some land clearing going on next to his house was placed on a course of prednisone and azithromycin 1 week ago. He followed up with his pulmonolgist who told him his x-ray showed failure. He had another x-ray done yesterday and does not have the results of this yet. He saw his PMD today Dr. Currie who prescribed diuretic and he developed near syncope following that appointment and he has come to the ED for evaluation. He indicates he has been having trouble with exertion for the past week. Review of Systems Constitutional: denies: Fever Eyes: denies: Decreased vision Ears: denies: Ear pain Nose: reports: Congestion. denies: Rhinorrhea / runny nose Throat: denies: Sore throat Cardiac: reports: Pedal edema. denies: Chest pain / pressure, Palpitations, Calf pain Respiratory: reports: Dyspnea, Cough, Wheezing GI: denies: Abdominal Pain, Nausea, Vomiting : denies: Dysuria, Frequency PD PAST MEDICAL HISTORY - Past Medical History Cardiovascular: Hypertension, High cholesterol Respiratory: COPD, Shortness of breath, Sleep apnea, CPAP use Endocrine/Autoimmune: Type 2 diabetes GI: GERD, GI bleed, Ulcers : Nocturia, Frequency HEENT: Chronic hearing loss Psych: None Musculoskeletal: Osteoarthritis Derm: Psoriasis - Past Surgical History General: Cholecystectomy, Other Ortho: Knee replacement - Present Medications Home Medications: Ambulatory Orders Medication Instructions Recorded Confirmed Aspirin 81 mg PO DAILY 09/18/16 09/18/16 metFORMIN [Glucophage] 500 mg PO BIDWM 09/18/16 09/18/16 Albuterol Sulf [Ventolin Hfa 1 - 2 puffs INH Q4HR PRN 09/19/16 09/19/16 Inhaler] Adalimumab [Humira] 40 mg SQ 07/04/19 Allopurinol [Zyloprim] 300 mg PO DAILY 07/04/19 07/04/19 Azilsartan Medoxomil [Edarbi] 80 mg PO DAILY 07/04/19 07/04/19 Carvedilol [Coreg] 25 mg PO BID 07/04/19 07/04/19 Chlorthalidone 25 mg PO DAILY 07/04/19 07/04/19 Fluticasone Propionate 16 gm NS BID 07/04/19 07/04/19 Hydralazine HCl 50 mg PO BID 07/04/19 07/04/19 Insulin Aspart [NovoLOG] 12 unit SUBQ TIDWM 07/04/19 07/04/19 Insulin Aspart [Novolog] 60 unit SQ DAILY PM 07/04/19 07/04/19 Insulin Glargine [Lantus Solostar] 40 unit SQ DAILY 07/04/19 07/04/19 Levothyroxine [Synthroid] 75 mcg PO QDAC 07/04/19 07/04/19 Simvastatin 10 mg PO DAILY 07/04/19 07/04/19 Tiotropium Br/Olodaterol HCl 4 gm IH BID 07/04/19 07/04/19 [Stiolto Respimat Inhal [place]] raNITIdine [Zantac] 150 mg PO DAILY 07/04/19 07/04/19 Lidocaine Patch 5% [Lidoderm Patch] 1 each TOP DAILY #10 patch 09/30/19 oxyCODONE [Roxicodone] 5 mg PO Q4-6H #10 tablet 09/30/19 Azithromycin [Zithromax] 250 mg PO DAILY #6 tablet 05/22/20 predniSONE [Deltasone] 10 mg PO ONCE #26 tablet 05/22/20 - Allergies Allergies/Adverse Reactions: Allergies Allergy/AdvReac Type Severity Reaction Status Date / Time PAOLO Inhibitors Allergy Mild Dizziness Verified 05/29/20 14:04 codeine Allergy Mild Rash Verified 05/29/20 14:04 exenatide [From [place]] Allergy Unknown Verified 05/29/20 14:04 fluticasone propionate * Allergy Unknown Verified 05/29/20 14:04 [From Advair Diskus] hydrocodone Allergy Itching Verified 05/29/20 14:04 morphine Allergy Rash Verified 05/29/20 14:04 pollen extracts Allergy Unknown Verified 05/29/20 14:04 salmeterol xinafoate * Allergy Unknown Verified 05/29/20 14:04 [From Advair Diskus] - Social History Does the pt smoke?: No Smoking Status: Never smoker Does the pt drink ETOH?: No Does the pt have substance abuse?: No - Immunizations Immunizations are current?: Yes - POLST Patient has POLST: No PD ED PE NORMAL - Vitals Vital signs reviewed: Yes (Bradycardic ) - General General: Alert and oriented X 3, No acute distress, Well developed/nourished - HEENT HEENT: Atraumatic, PERRL, EOMI - Neck Neck: Supple, no meningeal sign - Cardiac Cardiac: No murmur, Other (bradycardic) - Respiratory Respiratory: No respiratory distress, Clear bilaterally, Other (fair air movement no wheeze or crackles ) - Abdomen Abdomen: Soft, Non tender - Back Back: No CVA TTP, No spinal TTP - Derm Derm: Normal color, Warm and dry, No rash - Extremities Extremities: No deformity, Other (trace pitting only) - Neuro Neuro: Alert and oriented X 3, supervisor forming department 2-12 intact, No motor deficit, No sensory deficit, Normal speech Eye Opening: Spontaneous Motor: Obeys Commands Verbal: Oriented GCS Score: 15 - Psych Psych: Normal mood, Normal affect Results - Vitals Vitals: Vital Signs - 24 hr 05/29/20 05/29/20 14:04 14:07 Temperature 36.5 C Heart Rate 38 L 38 L Respiratory 16 18 Rate Blood Pressure 93/81 H 110/98 H O2 Saturation 94 93 Oxygen O2 Source Room air - EKG (time done) 1358 Rate: Rate (enter#) (37) Rhythm: Sinus bradycardia Intervals: RBBB Compare to prior EKG: Changed from prior EKG (SPT 05-22-2020 rate has slowed dramatically otherwise complexes are similar) Computer interpretation: Agree with computer - Labs Labs: Laboratory Tests 05/29/20 05/29/20 05/29/20 15:10 15:10 15:10 WBC 10.7 RBC 3.24 L Hgb 9.5 L Hct 29.8 L MCV 92.0 MCH 29.3 MCHC 31.9 L RDW 16.3 H Plt Count 193 MPV 10.9 Neut # (Auto) 8.2 H Lymph # (Auto) 1.5 [place] # (Auto) 0.7 Eos # (Auto) 0.1 Baso # (Auto) 0.0 Absolute Nucleated RBC 0.00 Nucleated RBC % 0.0 Sodium 133 L Potassium 6.0 H* Chloride 108 Carbon Dioxide 20 L Anion Gap 5.0 L BUN 52 H Creatinine 1.8 H Estimated GFR (MDRD) 37 L Glucose 134 H Calcium 7.8 L Total Bilirubin 0.6 AST 63 H ALT 68 H Alkaline Phosphatase 35 L Troponin I High Sens B-Natriuretic Peptide 109 H Total Protein 6.5 L Albumin 3.2 Globulin 3.3 Albumin/Globulin Ratio 1.0 Lipase 48 05/29/20 15:10 WBC RBC Hgb Hct MCV MCH MCHC RDW Plt Count MPV Neut # (Auto) Lymph # (Auto) [place] # (Auto) Eos # (Auto) Baso # (Auto) Absolute Nucleated RBC Nucleated RBC % Sodium Potassium Chloride Carbon Dioxide Anion Gap BUN Creatinine Estimated GFR (MDRD) Glucose Calcium Total Bilirubin AST ALT Alkaline Phosphatase Troponin I High Sens 13.2 B-Natriuretic Peptide Total Protein Albumin Globulin Albumin/Globulin Ratio Lipase - Rads (name of study) chest Radiology: Prelim report reviewed (Impression: Cardiomegaly with mild cephalization of pulmonary vasculature concerning for mild CHF. No pneumonia or pleural effusions.), EMP read indepedently, See rad report Procedures - IVC sono (time) 1445 Bedside IVC sono: IVC measures (cm) (2.22), IVC collapsed c insp (cm) (2.22), High CVP PD MEDICAL DECISION MAKING - ED course Complexity details: reviewed old records, reviewed results, re-evaluated patient, considered differential, d/w patient, d/w family ED course: 80-year-old male for the last week for exacerbation of COPD presents today with near syncope and a story that he has seen his doll wig hackler who is referred him to his primary for evaluation of congestive heart failure. He has now developed near syncope and has a heart rate in the 30s. He is on Coreg. He does require he does remember 1 time previously having a very low heart rate when his Coreg dose was accidentally doubled up when he had his knee surgery done. He states that time had to be off of it for 2 days. Today it appears Mr. Eli has bradycardia and this is likely related to his use of Coreg. I suspect he is symptomatic from this. He does have some trace edema on his chest x-ray and his inferior vena cava is plethoric at 2.2 cm. He is administered Lasix intravenously as well. His BNP is not impressively elevated. The patient is hyperkalemic and he is administered Lasix 40 mg intravenously, calcium gluconate 1000 mg intravenously and dextrose 50 mL's of 50% with 10 units of regular insulin. Departure - Departure Disposition: [facility] DC/Xfer Clinical Impression: Symptomatic bradycardia, Acute kidney injury, Hyperkalemia Condition: Stable
[2020-05-29] MEDS ORDERED: FUROSEMIDE 40 MG/4 ML VIAL IVP STA (14:55)
[2020-05-29 15:17] LABS: BASOPHILS % (AUTO) 0.3 %; EOSINOPHILS # (AUTO) 0.1 10^3/uL (0.0-0.7); EOSINOPHILS % (AUTO) 0.9 %; HGB - HEMOGLOBIN 9.5 g/dL (14.0-18.0); LYMPHOCYTES # (AUTO) 1.5 10^3/uL (1.5-3.5); LYMPHOCYTES % (AUTO) 13.5 %; MEAN CORPUSCULAR HEMOGLOBIN 29.3 pg (27.0-31.0); MEAN CORPUSCULAR HGB CONC 31.9 g/dL (32.0-36.0); MEAN PLATELET VOLUME 10.9 fL (7.4-11.4); MONOCYTES # (AUTO) 0.7 10^3/uL (0.0-1.0); MONOCYTES % (AUTO) 6.7 %; NEUTROPHILS # (AUTO) 8.2 10^3/uL (1.5-6.6); NEUTROPHILS % (AUTO) 76.7 %; PLT - PLATELET COUNT 193 10^3/uL (130-450); RED BLOOD COUNT 3.24 10^6/uL (4.70-6.10); RED CELL DISTRIBUTION WIDTH 16.3 % (12.0-15.0); WHITE BLOOD COUNT 10.7 x10^3/uL (4.8-10.8)
--- NOTE | 2020-05-29 15:45 | XRAY Report ---
PROCEDURE: Chest 1 View X-Ray INDICATIONS: chest pain TECHNIQUE: One view of the chest was acquired. COMPARISON: 05/22/2020 FINDINGS: Surgical changes and devices: None. Lungs and pleura: No pleural effusions or pneumothorax. Mild cephalization of pulmonary vasculature. Mediastinum: Mediastinal contours appear normal. Heart is enlarged. Bones and chest wall: No suspicious bony lesions. Overlying soft tissues appear unremarkable. IMPRESSION: Cardiomegaly with mild cephalization of pulmonary vasculature concerning for mild CHF. No pneumonia or pleural effusions. Reviewed by: Madhavi Huynh MD, PhD on 05/29/2020 3:44 PM PDT Approved by: Madhavi Huynh MD, PhD on 05/29/2020 3:44 PM PDT Station ID: [id number]
[2020-05-29 15:46] LABS: ALBUMIN 3.2 g/dL (3.2-5.5); BILIRUBIN,TOTAL 0.6 mg/dL (0.2-1.0); CALCIUM 7.8 mg/dL (8.5-10.3); CREATININE 1.8 mg/dL (0.6-1.2); TOTAL PROTEIN 6.5 g/dL (6.7-8.2)
[2020-05-29] MEDS ORDERED: CALCIUM GLUCONATE 1000 MG/10 ML VIAL IVP STA (16:16)
[2020-05-29] MEDS ORDERED: ONDANSETRON 4 MG/2 ML VIAL IVP PRN (16:17)
[2020-05-29] MEDS ORDERED: ACETAMINOPHEN 325 MG TABLET PO PRN (16:17)
[2020-05-29] MEDS ORDERED: ONDANSETRON ODT 4 MG TABLET TL PRN (16:17)
[2020-05-29] MEDS ORDERED: SODIUM CHLORIDE FLUSH 0.9% 10 ML SYRINGE IVP PRN (16:17)
[2020-05-29] MEDS ORDERED: DEXTROSE 50% ABBOJECT 25 GM/50 ML SYRINGE IVP STA (16:24)
[2020-05-29] MEDS ORDERED: INSULIN REGULAR HUMAN 100 UNIT/1 ML 10 ML MDV IVP STA (16:25)
[2020-05-29] MEDS ORDERED: SODIUM POLYSTYRENE SULFONATE 15 GM/60 ML BOTTLE PO STA (16:33)
[2020-05-29] MEDS ORDERED: oxyCODONE 5 MG TABLET PO PRN (16:56)
[2020-05-29] MEDS ORDERED: IPRATROPIUM/ALBUTEROL 3 ML NEB INH PRN (16:58)
[2020-05-29] MEDS ORDERED: ALBUTEROL NEB 2.5 MG/3 ML INH PRN (16:58)
--- NOTE | 2020-05-29 17:12 | HISTORY & PHYSICAL EXAMINATION ---
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 Patient report she have shortness of breathing for nearly a week, initially he is thinking her shortness breath is related to some Land clearing. He was given prednisone and azithromycin for 1 week but he was not feeling better, then he will follow-up with his pulmonolo gist, chest x-ray suggest for heart failure. Then patient see his PCP Dr. Breann Currie, he was given diuretics. but after he had the diuretics he almost developed near any syncope, then he come to the ED for further evaluation. In routine laboratory test in the ER patient was found potassium 6.0.Elevated creatinine 1.8, slightly elevated liver enzyme as well. Chest x-ray Suggesting mild CHF, no pneumonia or pleural effusion. Patient was given another 40 mg Lasix in the ER and patient was give insulin and D5, and calcium gluconate for his hyperkalemia. Patient also was found significantly bradycardia at heart rate 38, patient take Coreg now. Patient report he did have bradycardia once before when he take double dosage of Coreg incidently. Patient denies fever, chill, chest pain, abdominal pain, nausea or vomiting. Patient is admitted for further medical management. Discussed detail goal with the patient, patient stated he wanted to have CPR or intubation at least once. Patient is full code. History - Past Medical History Cardiovascular: reports: Hypertension, High cholesterol Respiratory: reports: COPD, Shortness of breath, Sleep apnea, CPAP use Endocrine/Autoimmune: reports: Type 2 diabetes GI: reports: GERD, GI bleed, Ulcers : reports: Nocturia, Frequency HEENT: reports: Chronic hearing loss Psych: reports: None Musculoskeletal: reports: Osteoarthritis Derm: reports: Psoriasis MRSA Hx?: No - Past Surgical History General: reports: Cholecystectomy, Other Ortho: reports: Knee replacement - Family & Social History Family History: Mother: , Father: , CAD, COPD/Emphysema Family History Comment/Other: Patient reported his father at 66 with COPD and lung cancer. Patient reported his mother from the cancer but he does not know which kind of cancer. Social History Notes: Patient reported he stop smoking 28 years ago, he denies alcohol or drug issue. He has been working in [employer] for 33 years - POLST Patient has POLST: No Meds/Allgy - Home Medications Home Medications: Ambulatory Orders Medication Instructions Recorded Confirmed Aspirin 81 mg PO DAILY 09/18/16 09/18/16 metFORMIN [Glucophage] 500 mg PO BIDWM 09/18/16 09/18/16 Albuterol Sulf [Ventolin Hfa 1 - 2 puffs INH Q4HR PRN 09/19/16 09/19/16 Inhaler] Adalimumab [Humira] 40 mg SQ 07/04/19 Allopurinol [Zyloprim] 300 mg PO DAILY 07/04/19 07/04/19 Azilsartan Medoxomil [Edarbi] 80 mg PO DAILY 07/04/19 07/04/19 Carvedilol [Coreg] 25 mg PO BID 07/04/19 07/04/19 Chlorthalidone 25 mg PO DAILY 07/04/19 07/04/19 Fluticasone Propionate 16 gm NS BID 07/04/19 07/04/19 Insulin Aspart [NovoLOG] 12 unit SUBQ TIDWM 07/04/19 07/04/19 Insulin Aspart [Novolog] 60 unit SQ DAILY PM 07/04/19 07/04/19 Insulin Glargine [Lantus Solostar] 40 unit SQ DAILY 07/04/19 07/04/19 Levothyroxine [Synthroid] 75 mcg PO QDAC 07/04/19 07/04/19 Simvastatin 10 mg PO QPM 07/04/19 07/04/19 Tiotropium Br/Olodaterol HCl 4 gm IH BID 07/04/19 07/04/19 [Stiolto Respimat Inhal [place]] raNITIdine [Zantac] 150 mg PO DAILY 07/04/19 07/04/19 Lidocaine Patch 5% [Lidoderm Patch] 1 each TOP DAILY #10 patch 09/30/19 oxyCODONE [Roxicodone] 5 mg PO Q4-6H #10 tablet 09/30/19 predniSONE [Deltasone] 10 mg PO ONCE #26 tablet 05/22/20 Amlodipine Besylate 10 mg PO DAILY 05/29/20 Cetirizine HCl 10 mg PO DAILY 05/29/20 Furosemide [Lasix] 40 mg PO DAILY 05/29/20 Potassium Chloride [Klor-Con M20] 20 meq PO DAILY 05/29/20 - Allergies Allergies/Adverse Reactions: Allergies Allergy/AdvReac Type Severity Reaction Status Date / Time PAOLO Inhibitors Allergy Mild Dizziness Verified 05/29/20 14:04 codeine Allergy Mild Rash Verified 05/29/20 14:04 exenatide [From [place]etta] Allergy Unknown Verified 05/29/20 14:04 fluticasone propionate * Allergy Unknown Verified 05/29/20 14:04 [From [place]ogi[place]] hydrocodone Allergy Itching Verified 05/29/20 14:04 morphine Allergy Rash Verified 05/29/20 14:04 pollen extracts Allergy Unknown Verified 05/29/20 14:04 salmeterol xinafoate * Allergy Unknown Verified 05/29/20 14:04 [From AdvAllTrails Diskus] Review of Systems - Constitutional Constitutional: denies: Fatigue, Fever, Chills, Malaise, Weakness, Poor appetite, Diaphoresis, Night sweats - Eyes Eyes: denies: Pain, Blurred vision, Spots in vision, Field loss, Vision loss, Dipolpia - Ears, Nose & Throat Ears, Nose & Throat: denies: Ear pain, Tinnitus, Vertigo, Nosebleeds, Bleeding gums - Cardiovascular Cariovascular: denies: Irregular heart rate, Palpitations, Chest pain, Edema, Lightheadedness, Syncope, Exertional dyspnea, Decr. exercise tolerance - Respiratory Respiratory: reports: SOB with exertion. denies: Cough, Sputum production, Wheezing, Snoring, Hemoptysis, Orthopnea, SOB at rest - Gastrointestinal Gastrointestinal: denies: Abdominal pain, Abdominal distention, Constipation, Diarrhea, Rectal bleeding, Black stools, Bloody stools, Nausea, Vomiting, Coffee grounds emesis - Genitourinary Genitourinary: denies: Dysuria, Frequency, Hematuria, Incontinence, Flank pain - Musculoskeletal Musculoskeletal: denies: Muscle pain, Back pain, Muscle aches, Stiffness, Limited range of motion, Muscle weakness, Gout, Joint pain - Integumentary Integumentary: denies: Rash, Lesions, Pigment changes - Neurological Neurological: denies: General weakness, Focal weakness, Headache, Dizziness, Numbness, Memory problems, Pre-existing deficit, Abnormal gait, Seizures, Incoordination, Slurred speech - Psychiatric Psychiatric: reports: Anxiety. denies: Depression, Suicidal, Delusions, Hallucinations, Homicidal - Endocrine Endocrine: denies: Polydypsia, Polyphagia - Hematologic/Lymphatic Hematologic/Lymphatic: denies: Anemia, Petechiae, Blood clots, Lymphadenopathy, Recurrent infections Exam - Vital Signs Vital Signs: Vital Signs x48h Temp Pulse Resp BP Pulse Ox 05/29/20 14:07 38 L 18 110/98 H 93 05/29/20 14:04 36.5 C 38 L 16 93/81 H 94 - Physical Exam General Appearance: positive: No acute distress, Alert. negative: Lethargic Eyes Bilateral: positive: Normal inspection, PERRL, No lid inflammation ENT: positive: ENT inspection nml, Pharynx nml, No signs of dehydration. negative: Oral lesions Neck: positive: Nml inspection, Thyroid nml, No JVD, Trachea midline. negative: Thyromegaly, Stiff neck, Tracheal deviation Respiratory: positive: Chest non-tender, No respiratory distress, Breath sounds nml. negative: Wheezes, Rales, Rhonchi Cardiovascular: positive: No murmur, No gallop, Irregularly irregular. negative: Tachycardia, Bradycardia, Systolic murmur, Diastolic murmur Peripheral Pulses: positive: 2+ Abdomen: positive: Non-tender, No organomegaly, Nml bowel sounds. negative: Tenderness, Guarding, Rebound Back: positive: Nml inspection. negative: CVA tenderness (R), CVA tenderness (L) Skin: positive: Color nml, No rash, Warm, Dry. negative: Cyanosis, Diaphoresis, Pallor Extremities: positive: Non-tender, Full ROM, Nml appearance. negative: Calf tenderness, Leatha's sign/cords Neurologic/Psychiatric: positive: Oriented x3, Motor nml, Sensation nml, Mood/affect nml. negative: Weakness, Sensory loss, Facial droop, Slurred/abnml speech, Depressed mood/affect Sepsis Event Note (H) - Evaluation Current Stage of Sepsis: Ruled out Conclusion/Plan - Problem List (1) Bradycardia Conclusion/Plan: Patient has bradycardia at HR 38 in the ER. Patient's heart rate is quickly returned to the 68 when patient into the medical floor. Patient is asymptomatic. He denies chest pain, he denies dizziness.Patient also denies syncope Or nearly syncope. Patient does not present shortness of breathing. Patient has a history take double dosage of his Coreg. We will hold his Coreg and continue telemetry to monitor patient overnight. (2) Hyperkalemia Conclusion/Plan: Patient potassium is 6.0, patient has worsening renal function.Patient was give insulin and calcium gluconate in the ER, We will continue orthodontic laboratory technician potassium. (3) Type 2 diabetes mellitus Conclusion/Plan: Patient has a history type II diabetic. He takes both Lantus and NovoLog at home. We will resume Lantus and NovoLog after confirmed. We will check A1c, we will continue his hypoglycemia protocol, And sliding scale. (4) History of COPD Conclusion/Plan: Patient has a history of COPD, patient does not present active respiratory distress now. We will resume home breathing treatment medication.Normal start with albuterol and DuoNeb PRN (5) Acute kidney injury Conclusion/Plan: Patient creatinine is 1.8 on today, patient has a creatinine 1.33 few days ago. We will hold patient home diuretic medication, And keep patient hydration. And to continue orthodontic laboratory technician (6) Hypertension Conclusion/Plan: Patient has a history of hypertension, we will resume patient home BP medication after confirmed (7) Anxiety Conclusion/Plan: Patient reported he has lots of anxiety, Main concern and anxiety is from worry about his medical condition, he visited twice ER, one time is a operational assistant and a one-time with his PCP in this few days. Explain his medical condition to the patient, patient seems more calm down with less anxiety, patient was give ativan PRN - Lab Results Fish Bones: 05/29/20 15:10 05/29/20 15:10 Core Measures - Anticipated LOS I expect patient to be DC'd or transferred within 96 hours.: Yes - DVT/VTE - Prophylaxis VTE/DVT Device ordered at admit?: Yes VTE/DVT Prophylaxis med ordered at admit?: Yes
[2020-05-29 17:27] LABS: BILIRUBIN,URINE NEGATIVE (NEGATIVE); CLARITY,URINE CLEAR (CLEAR); GLUCOSE, URINE (UA) NEGATIVE (NEGATIVE); KETONES,URINE (UA) NEGATIVE (NEGATIVE); LEUKOCYTE ESTERASE, URINE NEGATIVE (NEGATIVE); NITRITE,URINE NEGATIVE (NEGATIVE); OCCULT BLOOD,URINE NEGATIVE (NEGATIVE); PROTEIN,URINE TRACE mg/dL (NEGATIVE); UROBILINOGEN,URINE 0.2 (NORMAL) E.U./dL (NORMAL)
[2020-05-29] MEDS: SODIUM CHLORIDE FLUSH 0.9% 10 ML SYRINGE IVP SCH (17:47)
[2020-05-29] MEDS ORDERED: hydrALAZINE INJ 20 MG/ML VIAL IVP PRN (17:55)
[2020-05-29] MEDS ORDERED: ZOLPIDEM 5 MG TABLET PO PRN (17:57)
[2020-05-29] MEDS ORDERED: LORazepam 0.5 MG TABLET PO PRN (18:02)
[2020-05-29] MEDS ORDERED: LOSARTAN 50 MG TABLET PO SCH (18:04)
[2020-05-29] MEDS: amLODIPine 5 MG TABLET PO SCH (18:30)
[2020-05-29] MEDS ORDERED: INSULIN GLARGINE 300 UNIT/3 ML PEN SUBQ SCH (21:00)
[2020-05-29] MEDS: INSULIN ASPART 300 UNIT/3 ML PEN SUBQ SCH (21:26)
[2020-05-29] MEDS: HEPARIN 5,000 UNIT/ML VIAL SUBQ SCH (21:27)
[2020-05-30] MEDS: SODIUM CHLORIDE FLUSH 0.9% 10 ML SYRINGE IVP SCH ×3 (01:00→16:23)
[2020-05-30 05:08] LABS: BASOPHILS % (AUTO) 0.1 %; EOSINOPHILS # (AUTO) 0.2 10^3/uL (0.0-0.7); EOSINOPHILS % (AUTO) 2.1 %; HGB - HEMOGLOBIN 9.3 g/dL (14.0-18.0); LYMPHOCYTES # (AUTO) 2.1 10^3/uL (1.5-3.5); LYMPHOCYTES % (AUTO) 21.7 %; MEAN CORPUSCULAR HEMOGLOBIN 28.4 pg (27.0-31.0); MEAN CORPUSCULAR HGB CONC 32.5 g/dL (32.0-36.0); MEAN CORPUSCULAR VOLUME 87.5 fL (80.0-94.0); MEAN PLATELET VOLUME 10.1 fL (7.4-11.4); MONOCYTES # (AUTO) 0.9 10^3/uL (0.0-1.0); MONOCYTES % (AUTO) 9.8 %; NEUTROPHILS # (AUTO) 6.2 10^3/uL (1.5-6.6); NEUTROPHILS % (AUTO) 64.4 %; PLT - PLATELET COUNT 173 10^3/uL (130-450); RED BLOOD COUNT 3.27 10^6/uL (4.70-6.10); RED CELL DISTRIBUTION WIDTH 15.9 % (12.0-15.0); WHITE BLOOD COUNT 9.6 x10^3/uL (4.8-10.8)
[2020-05-30 05:19] LABS: ALBUMIN 3.3 g/dL (3.2-5.5); ALBUMIN/GLOBULIN RATIO 1.1 (1.0-2.2); BILIRUBIN,TOTAL 0.5 mg/dL (0.2-1.0); CALCIUM 8.1 mg/dL (8.5-10.3); CREATININE 1.4 mg/dL (0.6-1.2); TOTAL PROTEIN 6.4 g/dL (6.7-8.2)
[2020-05-30] MEDS: LEVOTHYROXINE 75 MCG TABLET PO SCH (06:27)
[2020-05-30] MEDS: INSULIN ASPART 300 UNIT/3 ML PEN SUBQ SCH ×4 (07:49→21:36)
[2020-05-30] MEDS ORDERED: INSULIN GLARGINE 300 UNIT/3 ML PEN SUBQ SCH ×4 (08:00→21:00)
[2020-05-30] MEDS: IPRATROPIUM/ALBUTEROL 3 ML NEB INH SCH ×4 (08:34→19:13)
[2020-05-30] MEDS ORDERED: hydroCHLOROthiazide 25 MG TABLET PO SCH (09:00)
[2020-05-30] MEDS: amLODIPine 5 MG TABLET PO SCH (09:54)
[2020-05-30] MEDS: ASPIRIN CHEW 81 MG TABLET PO SCH (09:54)
[2020-05-30] MEDS: LOSARTAN 50 MG TABLET PO SCH ×2 (09:58→21:29)
[2020-05-30] MEDS: hydroCHLOROthiazide 25 MG TABLET PO SCH (10:08)
[2020-05-30] MEDS: HEPARIN 5,000 UNIT/ML VIAL SUBQ SCH ×2 (10:08→21:32)
--- NOTE | 2020-05-30 11:56 | PHARMACY PROGRESS NOTE ---
- Best Possible Medication History Admit Date and Time: 05/29/20 1617 Processed by: Pharmacy Medication History completed: Yes Patient Interview: Completed Secondary Source(s): Pharmacy records (PATIENT INTERVIEWED BY PUNCH OPERATOR; PATIENT STATED HE HAS NOT YET STARTED TAKING POTASSIUM. PATIENT STATED HE TAKES HYDRALIZINE BID ), Insurance records As the person ultimately responsible for medication therapy, providers are able to order a medication from an existing home medication list in [facility] via the "Reconcile Routine" prior to Confirmation of that medication by application support administrator. Such practice is discouraged except when the physician, in their clinical judgment, deems that a medical need exists for a medication without regard to previous use.
[2020-05-30] MEDS: FUROSEMIDE 40 MG TABLET PO SCH (14:15)
--- NOTE | 2020-05-30 17:53 | PROVIDER PROGRESS NOTE ---
Assessment/Plan - Problem List (1) Bradycardia Assessment/Plan: pt's HR is around 60 when we hold his coreg. Patient's Home medication does not have Coreg. But the patient reported he take 25 mg Coreg twice daily. Patient reported he had Coreg he took for many years before. He checked online he think he should take, then he took. Patient did not follow medication schedule. It is self medicated. I discussed with the patient, this is dangerous as to why he has severe bradycardia. 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 Patient stated he will make medical compliant. (3) Hyperkalemia Resolved (4) Type 2 diabetes mellitus Conclusion/Plan: Patient take 5 units Lantus in hospital + sliding scale. Her glucose level is less than 190 in the hospital. But the patient take much more Lantus 100 units in the home plus sliding scale. Patient reported she drink and eat much more sugar in the home. She also clearly stated she checked her glucose before she gives her insulin special in the night, and her glucose level usually between 130 or 140 before she gives her insulin every night. He reported he take 100 units Lantus in the past plus slide scale in the home for many years, he has no any problem and no hypoglycemia problem. He reported this is his primary care doctor give him the management regimen. He reported because of this insulin regimen his A1c is good control. firmly He does not want to change his insulin management in the home. when We discuss with the patient for his insulin management in the home, his in the bedside confirm pt's above information. (5) History of COPD Conclusion/Plan: Stable, continue albuterol and DuoNeb PRN (6) Acute kidney injury Conclusion/Plan: Improved, creatinine is 1.4. we will continue home Lasix and daily lab monitor (7) Hypertension Conclusion/Plan: stable and controlled. (8) Anxiety Conclusion/Plan: continue PRN ativan (9) pulmonary hypertension Echo show RVSP is a 48 mmHG and mild right heart abnormal pressure. Continue home diuretics Lasix and HCTZ. hooker off - Current Meds Current Meds: Current Medications Generic Name Dose Route Start Last Admin Trade Name Freq PRN Reason Stop Dose Admin Albuterol/Ipratropium 3 ml 05/29/20 16:58 05/29/20 18:15 Duoneb INH 3 ml RTQID PRN Administration Shortness of Air/Wheezing Albuterol/Ipratropium 3 ml 05/30/20 07:00 05/30/20 17:14 Duoneb INH 3 ml RTQID CHAR Administration Amlodipine Besylate 10 mg 05/29/20 17:52 05/30/20 09:54 Norvasc PO 10 mg DAILY CHAR Administration Aspirin 81 mg 05/30/20 09:00 05/30/20 09:54 [place] Aspirin PO 81 mg DAILY CHAR Administration Furosemide 40 mg 05/30/20 13:38 05/30/20 14:15 Lasix PO 40 mg DAILY CHAR Administration Heparin Sodium (Porcine) 5,000 unit 05/29/20 21:00 05/30/20 10:08 SUBQ 5,000 unit BID CHAR Administration Hydrochlorothiazide 25 mg 05/30/20 09:00 05/30/20 10:08 Hydrodiuril PO Not Given DAILY CHAR Insulin Aspart 1 - 9 unit 05/29/20 21:00 05/30/20 12:23 Novolog SUBQ 3 unit 0800,1200,1700,2100 CHAR Administration Protocol Levothyroxine Sodium 75 mcg 05/30/20 07:00 05/30/20 06:27 Synthroid PO 75 mcg QDAC CHAR Administration Losartan Potassium 50 mg 05/30/20 09:00 05/30/20 09:58 Cozaar PO 50 mg BID CHAR Administration Sodium Chloride 10 ml 05/29/20 17:00 05/30/20 16:23 Normal Saline Flush 0.9% IVP 10 ml 0100,0900,1700 CHAR Administration - Lab Result Fish Bone Diagrams: 05/30/20 04:45 05/30/20 04:45 - Additional Planning My Orders: My Active Orders 05/29/20 16:56 oxyCODONE [Roxicodone] 5 mg PO Q4HR PRN 05/29/20 16:58 Nebulizer/MDI Tx. [RC] .qid Resp Teach Nebulizer/MDI [RC] .ONCE Albuterol 2.5 mg INH RTQ4H PRN Ipratropium/Albuterol [Duoneb] 3 ml INH RTQID PRN 05/29/20 16:59 Blood Glucose Checks - Eating [RC] 0800,1200,1700,2100 Initiate Hypoglycemia Protocol [RC] .protocol 05/29/20 17:52 amLODIPine [Norvasc] 10 mg PO DAILY 05/29/20 17:55 hydrALAZINE INJ [Apresoline Inj] 10 mg IVP Q4H PRN 05/29/20 17:57 Home CPAP/BiPAP [RC] .ONCE Zolpidem [Ambien] 5 mg PO QPM PRN 05/29/20 18:02 LORazepam [Ativan] 0.5 mg PO Q12H PRN 05/29/20 21:00 Heparin 5,000 unit SUBQ BID Insulin Aspart [NovoLOG] 1 - 9 unit SUBQ 0800,1200,1700,2100 05/30/20 07:00 Ipratropium/Albuterol [Duoneb] 3 ml INH RTQID Levothyroxine [Synthroid] 75 mcg PO QDAC 05/30/20 09:00 Aspirin Chewable [[place]ax Aspirin] 81 mg PO DAILY Losartan [Cozaar] 50 mg PO BID hydroCHLOROthiazide [Hydrodiuril] 25 mg PO DAILY 05/30/20 Lunch Carb-controlled Diet [DIET] 05/30/20 13:38 Furosemide [Lasix] 40 mg PO DAILY 05/30/20 17:41 Telemetry- [RC] Q4HR 05/31/20 05:00 CBC - COMP BLD CT W/AUTO DIFF [HEME] DAILYLAB CMP [COMPREHENSIVE METABOLIC PANEL] [CHEM] DAILYLAB 05/31/20 08:00 Insulin Glargine [Lantus Solostar] 5 unit SUBQ QDBREAKFAST 06/01/20 05:00 CBC - COMP BLD CT W/AUTO DIFF [HEME] DAILYLAB CMP [COMPREHENSIVE METABOLIC PANEL] [CHEM] DAILYLAB 06/02/20 05:00 CBC - COMP BLD CT W/AUTO DIFF [HEME] DAILYLAB CMP [COMPREHENSIVE METABOLIC PANEL] [CHEM] DAILYLAB Subjective - Subjective Patient Reports: Feeling Better Objective Vital Signs: Vital Signs - 24 hr 05/29/20 05/29/20 05/29/20 18:03 18:15 18:17 Temperature 36.8 C Heart Rate 64 64 Heart Rate [ Brachial] Heart Rate [ 58 L Radial] Respiratory 19 16 16 Rate Blood Pressure 160/51 H [Right Brachial artery] O2 Saturation 97 96 05/29/20 05/30/20 05/30/20 20:25 00:29 04:24 Temperature 36.7 C 36.7 C 36.6 C Heart Rate Heart Rate [ Brachial] Heart Rate [ 65 66 57 L Radial] Respiratory 16 24 24 Rate Blood Pressure 167/71 H 153/62 H 147/63 H [Right Brachial artery] O2 Saturation 93 92 93 05/30/20 05/30/20 05/30/20 08:20 08:37 09:53 Temperature 36.6 C Heart Rate 62 Heart Rate [ Brachial] Heart Rate [ 53 L 61 Radial] Respiratory 20 18 Rate Blood Pressure 171/60 H 157/67 H [Right Brachial artery] O2 Saturation 93 05/30/20 05/30/20 05/30/20 12:30 12:55 15:35 Temperature 36.8 C 36.5 C Heart Rate 70 Heart Rate [ 58 L Brachial] Heart Rate [ 59 L Radial] Respiratory 20 20 16 Rate Blood Pressure 170/58 H 120/73 [Right Brachial artery] O2 Saturation 94 93 05/30/20 17:14 Temperature Heart Rate 60 Heart Rate [ Brachial] Heart Rate [ Radial] Respiratory 20 Rate Blood Pressure [Right Brachial artery] O2 Saturation Oxygen O2 Source Room air I&O (Last 24 Hrs): Intake and Output Totals x24h 05/28/20 05/29/20 05/30/20 23:59 23:59 23:59 Intake Total 940 2070 Output Total 2069 4475 Balance -1130 -2405 General: Alert, Oriented x3, No acute distress HEENT: Atraumatic Neck: Supple Lymphatic: no adenopathy Neuro: Alert, Non Focal, Oriented Times 3 Cardiovascular: Regular rate, Normal S1, Normal S2 Respiratory: Chest non-tender, No respiratory distress Abdomen: Normal bowel sounds, Soft, No tenderness Extremities: Normal pulses - Results Results: Laboratory Results WBC 9.6 x10^3/uL (4.8-10.8) 05/30/20 04:45 RBC 3.27 10^6/uL (4.70-6.10) L 05/30/20 04:45 Hgb 9.3 g/dL (14.0-18.0) L 05/30/20 04:45 Hct 28.6 % (42.0-52.0) L 05/30/20 04:45 MCV 87.5 fL (80.0-94.0) 05/30/20 04:45 MCH 28.4 pg (27.0-31.0) 05/30/20 04:45 MCHC 32.5 g/dL (32.0-36.0) 05/30/20 04:45 RDW 15.9 % (12.0-15.0) H 05/30/20 04:45 Plt Count 173 10^3/uL (130-450) 05/30/20 04:45 MPV 10.1 fL (7.4-11.4) 05/30/20 04:45 Neut # (Auto) 6.2 10^3/uL (1.5-6.6) 05/30/20 04:45 Lymph # (Auto) 2.1 10^3/uL (1.5-3.5) 05/30/20 04:45 [place] # (Auto) 0.9 10^3/uL (0.0-1.0) 05/30/20 04:45 Eos # (Auto) 0.2 10^3/uL (0.0-0.7) 05/30/20 04:45 Baso # (Auto) 0.0 10^3/uL (0.0-0.1) 05/30/20 04:45 Absolute Nucleated RBC 0.00 x10^3/uL 05/30/20 04:45 Nucleated RBC % 0.0 /100WBC 05/30/20 04:45 D-Dimer 346.0 ng/mL (200.0-255.0) H 05/29/20 17:17 Sodium 134 mmol/L (135-145) L 05/30/20 04:45 Potassium 4.7 mmol/L (3.5-5.0) 05/30/20 04:45 Chloride 104 mmol/L (101-111) 05/30/20 04:45 Carbon Dioxide 24 mmol/L (21-32) 05/30/20 04:45 Anion Gap 6.0 (6-13) 05/30/20 04:45 BUN 47 mg/dL (6-20) H 05/30/20 04:45 Creatinine 1.4 mg/dL (0.6-1.2) H 05/30/20 04:45 Estimated GFR (MDRD) 49 (>89) L 05/30/20 04:45 Glucose 128 mg/dL (70-100) H 05/30/20 04:45 Lactic Acid 1.2 mmol/L (0.5-2.2) 05/29/20 16:30 Calcium 8.1 mg/dL (8.5-10.3) L 05/30/20 04:45 Total Bilirubin 0.5 mg/dL (0.2-1.0) 05/30/20 04:45 AST 29 IU/L (10-42) 05/30/20 04:45 ALT 55 IU/L (10-60) 05/30/20 04:45 Alkaline Phosphatase 42 IU/L (42-121) 05/30/20 04:45 Troponin I High Sens 13.2 ng/L (2.3-19.7) 05/29/20 15:10 B-Natriuretic Peptide 109 pg/mL (5-100) H 05/29/20 15:10 Total Protein 6.4 g/dL (6.7-8.2) L 05/30/20 04:45 Albumin 3.3 g/dL (3.2-5.5) 05/30/20 04:45 Globulin 3.1 g/dL (2.1-4.2) 05/30/20 04:45 Albumin/Globulin Ratio 1.1 (1.0-2.2) 05/30/20 04:45 Lipase 48 U/L (22-51) 05/29/20 15:10 TSH 2.32 uIU/mL (0.34-5.60) 05/30/20 04:45 Urine Color YELLOW 05/29/20 17:03 Urine Clarity CLEAR (CLEAR) 05/29/20 17:03 Urine pH 5.0 PH (5.0-7.5) 05/29/20 17:03 Ur Specific [place] 1.015 (1.002-1.030) 05/29/20 17:03 Urine Protein TRACE mg/dL (NEGATIVE) 05/29/20 17:03 Urine Glucose (UA) NEGATIVE mg/dL (NEGATIVE) 05/29/20 17:03 Urine Ketones NEGATIVE mg/dL (NEGATIVE) 05/29/20 17:03 Urine Occult Blood NEGATIVE (NEGATIVE) 05/29/20 17:03 Urine Nitrite NEGATIVE (NEGATIVE) 05/29/20 17:03 Urine Bilirubin NEGATIVE (NEGATIVE) 05/29/20 17:03 Urine Urobilinogen 0.2 (NORMAL) E.U./dL (NORMAL) 05/29/20 17:03 Ur Leukocyte Esterase NEGATIVE (NEGATIVE) 05/29/20 17:03 Ur Microscopic Review NOT INDICATED 05/29/20 17:03 Urine Culture Comments NOT INDICATED 05/29/20 17:03 Ref Lab Test Result REPORT 05/29/20 15:10 - Procedures Procedures: Procedures EXCISION OF CECUM, ENDO (07/04/19) EXCISION OF DESCENDING COLON, ENDO (07/04/19) EXCISION OF SIGMOID COLON, ENDO (07/04/19) EXCISION OF STOMACH, ENDO, DIAGN (07/04/19) Sepsis Event Note (H) - Evaluation Current Stage of Sepsis: Ruled out ABX Reporting Has patient been on IV antibiotics over the past 48 hours?: No Current Medications - Current Medications Current Medications: Active Medications Acetaminophen (Tylenol) 650 mg PO Q4HR PRN PRN Reason: Pain 1 to 4 Albuterol () 2.5 mg INH RTQ4H PRN PRN Reason: Wheezing Albuterol/Ipratropium (Duoneb) 3 ml INH RTQID PRN PRN Reason: Shortness of Air/Wheezing Last Admin: 05/29/20 18:15 Dose: 3 ml Documented by: Albuterol/Ipratropium (Duoneb) 3 ml INH RTQID [facility] Last Admin: 05/30/20 17:14 Dose: 3 ml Documented by: Amlodipine Besylate (Norvasc) 10 mg PO DAILY [facility] Last Admin: 05/30/20 09:54 Dose: 10 mg Documented by: Aspirin ([facility] [place]ax Aspirin) 81 mg PO DAILY [facility] Last Admin: 05/30/20 09:54 Dose: 81 mg Documented by: Furosemide (Lasix) 40 mg PO DAILY [facility] Last Admin: 05/30/20 14:15 Dose: 40 mg Documented by: Heparin Sodium (Porcine) () 5,000 unit SUBQ BID [facility] Last Admin: 05/30/20 10:08 Dose: 5,000 unit Documented by: Hydralazine HCl (Apresoline Inj) 10 mg IVP Q4H PRN PRN Reason: Hypertensive Emergency Hydrochlorothiazide (Hydrodiuril) 25 mg PO DAILY [facility] Last Admin: 05/30/20 10:08 Dose: Not Given Documented by: Insulin Aspart (Novolog) 1 - 9 unit SUBQ 0800,1200,1700,2100 [facility]; Protocol Last Admin: 05/30/20 18:01 Dose: 1 unit Documented by: Insulin Glargine (Lantus Solostar) 5 unit SUBQ QDBREAKFAST [facility] Insulin Glargine (Lantus Solostar) 10 unit SUBQ QPM [facility] Levothyroxine Sodium (Synthroid) 75 mcg PO QDAC [facility] Last Admin: 05/30/20 06:27 Dose: 75 mcg Documented by: Lorazepam (Ativan) 0.5 mg PO Q12H PRN PRN Reason: Anxiety Losartan Potassium (Cozaar) 50 mg PO BID [facility] Last Admin: 05/30/20 09:58 Dose: 50 mg Documented by: Ondansetron HCl (Zofran Odt) 4 mg TL Q6HR PRN PRN Reason: Nausea / Vomiting Ondansetron HCl (Zofran Inj) 4 mg IVP Q6HR PRN PRN Reason: Nausea / Vomiting Oxycodone HCl (Roxicodone) 5 mg PO Q4HR PRN PRN Reason: PAIN Sodium Chloride (Normal Saline Flush 0.9%) 10 ml IVP PRN PRN PRN Reason: NEEDED PER PROVIDER ORDERS Sodium Chloride (Normal Saline Flush 0.9%) 10 ml IVP 0100,0900,1700 [facility] Last Admin: 05/30/20 16:23 Dose: 10 ml Documented by: Zolpidem Tartrate (Ambien) 5 mg PO QPM PRN PRN Reason: Insomnia Aspirin 81 mg PO DAILY 09/18/16 metFORMIN [Glucophage] 500 mg PO BIDWM 09/18/16 Albuterol Sulf [Ventolin Hfa Inhaler] 1 - 2 puffs INH Q4HR PRN 09/19/16 Adalimumab [Humira] 40 mg SQ Q14D 07/04/19 Allopurinol [Zyloprim] 300 mg PO DAILY 07/04/19 Azilsartan Medoxomil [Edarbi] 80 mg PO DAILY 07/04/19 Chlorthalidone 25 mg PO DAILY 07/04/19 Fluticasone Propionate 1 spray NS BID 07/04/19 Insulin Aspart [NovoLOG] 60 unit SUBQ QPM 07/04/19 Insulin Aspart [Novolog] 8 - 12 unit SQ TIDWM 07/04/19 Insulin Glargine [Lantus Solostar] 40 unit SQ DAILY 07/04/19 Levothyroxine [Synthroid] 75 mcg PO QDAC 07/04/19 Simvastatin 10 mg PO QPM 07/04/19 Tiotropium Br/Olodaterol HCl [Stiolto Respimat Inhal [place]] 1 puffs IH BID 07/04/19 Amlodipine Besylate 10 mg PO DAILY 05/29/20 Cetirizine HCl 10 mg PO DAILY PRN 05/29/20 Furosemide [Lasix] 40 mg PO DAILY 05/29/20 Potassium Chloride [Klor-Con M20] 20 meq PO DAILY 05/29/20 Dulaglutide [Trulicity] 1.5 mg SQ Q7D 05/30/20 Famotidine [Pepcid] 20 mg PO DAILY 05/30/20 Hydralazine HCl 50 mg PO BID 05/30/20 Insulin Glargine [Lantus Solostar] 60 units SQ QPM 05/30/20
[2020-05-31] MEDS: SODIUM CHLORIDE FLUSH 0.9% 10 ML SYRINGE IVP SCH ×2 (00:51→09:02)
[2020-05-31 05:27] LABS: BASOPHILS % (AUTO) 0.2 %; EOSINOPHILS # (AUTO) 0.2 10^3/uL (0.0-0.7); EOSINOPHILS % (AUTO) 2.9 %; LYMPHOCYTES % (AUTO) 24.4 %; MEAN CORPUSCULAR HEMOGLOBIN 28.3 pg (27.0-31.0); MEAN CORPUSCULAR HGB CONC 32.6 g/dL (32.0-36.0); MEAN PLATELET VOLUME 10.1 fL (7.4-11.4); MONOCYTES # (AUTO) 0.9 10^3/uL (0.0-1.0); NEUTROPHILS % (AUTO) 60.4 %; PLT - PLATELET COUNT 184 10^3/uL (130-450); RED BLOOD COUNT 3.53 10^6/uL (4.70-6.10); RED CELL DISTRIBUTION WIDTH 15.8 % (12.0-15.0); WHITE BLOOD COUNT 8.3 x10^3/uL (4.8-10.8)
[2020-05-31 05:38] LABS: ALBUMIN 3.5 g/dL (3.2-5.5); ALBUMIN/GLOBULIN RATIO 1.1 (1.0-2.2); BILIRUBIN,TOTAL 1.1 mg/dL (0.2-1.0); CALCIUM 8.1 mg/dL (8.5-10.3); CREATININE 1.3 mg/dL (0.6-1.2); TOTAL PROTEIN 6.8 g/dL (6.7-8.2)
[2020-05-31] MEDS: LEVOTHYROXINE 75 MCG TABLET PO SCH (06:27)
[2020-05-31] MEDS: INSULIN ASPART 300 UNIT/3 ML PEN SUBQ SCH ×2 (07:54→12:00)
[2020-05-31] MEDS ORDERED: INSULIN GLARGINE 300 UNIT/3 ML PEN SUBQ SCH ×2 (08:00→21:00)
[2020-05-31] MEDS ORDERED: GI COCKTAIL 120 ML BOTTLE PO PRN (08:08)
[2020-05-31] MEDS: IPRATROPIUM/ALBUTEROL 3 ML NEB INH SCH ×2 (08:19→11:17)
[2020-05-31] MEDS ORDERED: FAMOTIDINE 20 MG TABLET PO SCH (09:00)
[2020-05-31 09:01] VITALS: BP 155/56
[2020-05-31] MEDS: LOSARTAN 50 MG TABLET PO SCH (09:02)
[2020-05-31] MEDS: hydroCHLOROthiazide 25 MG TABLET PO SCH (09:02)
[2020-05-31] MEDS: amLODIPine 5 MG TABLET PO SCH (09:02)
[2020-05-31] MEDS: FUROSEMIDE 40 MG TABLET PO SCH (09:02)
[2020-05-31] MEDS: HEPARIN 5,000 UNIT/ML VIAL SUBQ SCH (09:02)
[2020-05-31] MEDS: ASPIRIN CHEW 81 MG TABLET PO SCH (09:02)
--- NOTE | 2020-05-31 11:22 | Discharge Plan ---
Discharge Plan Problem Reviewed?: Yes Disposition: Home, Self Care Condition: Stable Diet: Diabetic Activity Restrictions: Activity as Tolerated Shower Restrictions: No (fall precaution) Instruction Topics: Hypoglycemia, Diabetes Type 2 Coping, Blood Sugar Check, Insulin Injected, Diabetes Carbs, Dehydration Health Concerns: dehydration, medical noncompliance, hypoglycemia Plan of Treatment: advise you keep hydration. we found you had significant dehydration, and elevated creatinine and hyperkalemia in the admission. Now your hyperkalemia is resolved and your creatinine is returned to your baseline. You were found to have significant bradycardia at HR 38 at the admission. You did not have Coreg in your home medication list but you reported you took Coreg. That is likely reason to cause your bradycardia. we hold coreg in the hospital then you did not have bradycardia. advise you make medical compliance, hold to take Coreg now, followup with your PCP and [facility] as out-patient. you took about 200 unit of insulin at home as you and your stated. But in hospital we only give you 10 units initially then increase to 15 units Lantus plus slide scale. There is huge difference for you to take insulin between hospital and your home. You tell us you ate lots of sugar at home and want to keep your insulin schedule. I give our hospital schedule for insulin to you as your right to choose. advise you followup with your PCP to continue management of your diabetes. Care Goals: stabilization and improvement of your medical conditions Assessment: discussed with you and your for the care plan in detail, you understood and agreed. Additional Instructions or Follow Up instructions: You may followup with your PCP in one week, followup with [facility] as out- patient. Should your symptoms return or worsen, you may present ER or call 911 for help. Follow-Up Care: [facility] - Diabetes Ed No Smoking: If you smoke, Please STOP! Call for help. Follow-up with: Ousmane Currie DO [Primary Care Provider] -
--- NOTE | 2020-05-31 11:46 | DISCHARGE SUMMARY ---
Discharge Summary Admit Date: 05/29/20 Discharge Date: 05/31/20 Discharging Provider: Xiang Guerrero Primary Care Provider: Dr. Breann Currie Condition at Discharge: Stable Discharge Disposition: 01 Home, Self Care Discharge Facility Name: home - DIAGNOSES Discharge Diagnoses with Status of Each Condition: (1) Bradycardia Resolved. Patient bradycardia was simply caused by patient's self medicated by himself. His home medication list does not have Coreg, but patient takes Coreg because he watched Internet to see Coreg is good for him, then he took it. patient had Coreg in the home which was prescribed by his asbestos remover before. He should not take Coreg. Now patient understand and he states he will not take it again. (2)Medical non compliance Patient has hx of medical non compliance, as discussed above. he state he will follow-up medical advice and make medical compliant. (3) Hyperkalemia Resolved (4) Type 2 diabetes mellitus Patient report he takes about 200 units of insulin at home. But in hospital patient only need 15 units of Lantus plus sliding scale insulin.Patient had RN clinical unit educator consulting. Reason why he takes so many insulin at home, he reported because He drinks and eat lots of sugar in the home. Patient reported he takes so many insulins for many years. His information was confirmed by his as well. He also reported he check his glucose level before he give insulin to himself. inclusion paraeducator also talk with the patient about how many insulin he took at his home. Patient persistent he want to keep his insulin schedule as his home meds list. He also agreed I gave him our insulin schedule to him. (5) History of COPD Stable, continue albuterol and DuoNeb PRN (6) Acute kidney injury Improved as his baseline (7) Hypertension stable (8) Anxiety stable (9) pulmonary hypertension stable. 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 Patient report she have shortness of breathing for nearly a week, initially he is thinking her shortness breath is related to some Land clearing. He was given prednisone and azithromycin for 1 week but he was not feeling better, then he will follow-up with his hog sawyer, chest x-ray suggest for heart failure. Then patient see his PCP Dr. Breann Currie, he was given diuretics. but after he had the diuretics he almost developed near any syncope, then he come to the ED for further evaluation. In routine laboratory test in the ER patient was found potassium 6.0.Elevated creatinine 1.8, slightly elevated liver enzyme as well. Chest x-ray Suggesting mild CHF, no pneumonia or pleural effusion. Patient was given another 40 mg Lasix in the ER and patient was give insulin and D5, and calcium gluconate for his hyperkalemia. Patient also was found significantly bradycardia at heart rate 38, patient take Coreg now. Patient report he did have bradycardia once before when he take double dosage of Coreg incidently. Patient denies fever, chill, chest pain, abdominal pain, nausea or vomiting. Patient is admitted for further medical management. Discussed detail goal with the patient, patient stated he wanted to have CPR or intubation at least once. Patient is full code. - HOSPITAL COURSE Hospital Course: Patient was admission for shortness of breathing. Patient was found to have bradycardia 38 HR. Quickly when patient was medical floor, his heart rate return to 67, then patient become asymptomatic. Patient report he took Coreg 25 mg 2 times a day In the home. Per the patient's home medication list, he does not have Coreg. When asked where his Coreg came from, patient report his Coreg was prescribed by his asbestos remover quite a long time ago. Patient report because he see Coreg is good meds in internet so he decided to take Coreg by himself, without medical professional permission. We hold Coreg in hospital, patient's heart rate was between 55-70. Patient should not have Corag. Educate patient for medical compliant. Patient stated he will never take the medication until approved by Medical professional. Patient reported he did take around 200 units insulin in the home. But in Hospital patient was scheduled 15 units Lantus plus sliding scale. Patient was consulted with clinical unit educator. Patient want to continue his home insulin schedule because he state he drink and eat much more sugar than he did in the hospital. We give hospital insulin schedule to the patient. Advised the patient follow-up with his PCP Dr. Breann Laird to continue to management of his diabetic. You may followup with your PCP in one week, followup with asbestos remover as out- patient. Should your symptoms return or worsen, you may present ER or call 911 for help. - ALLERGIES Allergies/Adverse Reactions: Allergies Allergy/AdvReac Type Severity Reaction Status Date / Time PAOLO Inhibitors Allergy Mild Dizziness Verified 05/29/20 14:04 codeine Allergy Mild Rash Verified 05/29/20 14:04 exenatide [From Byetta] Allergy Unknown Verified 05/29/20 14:04 fluticasone propionate * Allergy Unknown Verified 05/29/20 14:04 [From Advair Diskus] hydrocodone Allergy Itching Verified 05/29/20 14:04 morphine Allergy Rash Verified 05/29/20 14:04 pollen extracts Allergy Unknown Verified 05/29/20 14:04 salmeterol xinafoate * Allergy Unknown Verified 05/29/20 14:04 [From Advair Diskus] - MEDICATIONS Home Medications: Ambulatory Orders Medication Instructions Recorded Confirmed Aspirin 81 mg PO DAILY 09/18/16 05/30/20 metFORMIN [Glucophage] 500 mg PO BIDWM 09/18/16 05/30/20 Albuterol Sulf [Ventolin Hfa 1 - 2 puffs INH Q4HR PRN 09/19/16 05/30/20 Inhaler] Adalimumab [Humira Pen] 40 mg SQ Q14D 07/04/19 05/30/20 Allopurinol [Zyloprim] 300 mg PO DAILY 07/04/19 05/30/20 Azilsartan Medoxomil [Edarbi] 80 mg PO DAILY 07/04/19 05/30/20 Chlorthalidone 25 mg PO DAILY 07/04/19 05/30/20 Fluticasone Propionate 1 spray NS BID 07/04/19 05/30/20 Insulin Aspart [Novolog] 8 - 12 unit SQ TIDWM 07/04/19 05/30/20 Levothyroxine [Synthroid] 75 mcg PO QDAC 07/04/19 05/30/20 Simvastatin 10 mg PO QPM 07/04/19 05/30/20 Tiotropium Br/Olodaterol HCl 1 puffs IH BID 07/04/19 05/30/20 [Stiolto Respimat Inhal [place]] Amlodipine Besylate 10 mg PO DAILY 05/29/20 05/30/20 Cetirizine HCl 10 mg PO DAILY PRN 05/29/20 05/30/20 Furosemide [Lasix] 40 mg PO DAILY 05/29/20 05/30/20 Potassium Chloride [Klor-Con M20] 20 meq PO DAILY 05/29/20 Dulaglutide [Trulicity] 1.5 mg SQ Q7D 05/30/20 05/30/20 Famotidine [Pepcid] 20 mg PO DAILY 05/30/20 05/30/20 Hydralazine HCl 50 mg PO BID 05/30/20 Insulin Glargine [Lantus Solostar] 5 unit SQ DAILY #0 05/31/20 05/30/20 Insulin Glargine [Lantus Solostar] 10 units SQ QPM #0 05/31/20 05/30/20 - PHYSICAL EXAM AT DISCHARGE General Appearance: positive: No acute distress, Alert. negative: Lethargic Eyes Bilateral: positive: Normal inspection, PERRL, No lid inflammation ENT: positive: ENT inspection nml, Pharynx nml, No signs of dehydration. nega tive: Purulent nasal drainage Neck: positive: Nml inspection, Thyroid nml, No JVD, Trachea midline. negative: Thyromegaly, Stiff neck, Tracheal deviation Respiratory: positive: Chest non-tender, No respiratory distress. negative: Wheezes, Rales, Rhonchi Cardiovascular: positive: Regular rate & rhythm, No murmur, No gallop. negative: Tachycardia, Bradycardia, Systolic murmur, Diastolic murmur Peripheral Pulses: positive: 2+ Abdomen: positive: Non-tender, No organomegaly, Nml bowel sounds. negative: Tenderness, Guarding, Rebound Back: positive: Nml inspection. negative: CVA tenderness (R), CVA tenderness (L) Skin: positive: Color nml, No rash, Warm, Dry. negative: Cyanosis, Diaphoresis, Pallor Extremities: positive: Non-tender, Full ROM, Nml appearance. negative: Calf tenderness, Leatha's sign/cords Neurologic/Psychiatric: positive: Oriented x3, Motor nml, Sensation nml, Mood/affect nml. negative: Weakness, Sensory loss, Facial droop, Slurred/abnml speech, Depressed mood/affect - LABS Result Diagrams: 05/31/20 05:05/31/20 05:05 - SEPSIS Current Stage of Sepsis: Ruled out - FOLLOW UP Follow Up: advise you keep hydration. we found you had significant dehydration, and elevated creatinine and hyperkalemia in the admission. Now your hyperkalemia is resolved and your creatinine is returned to your baseline. You were found to have significant bradycardia at HR 38 at the admission. You did not have Coreg in your home medication list but you reported you took Coreg. That is likely reason to cause your bradycardia. we hold coreg in the hospital then you did not have bradycardia. advise you make medical compliance, hold to take Coreg now, followup with your PCP and asbestos remover as out-patient. you took about 200 unit of insulin at home as you and your stated. But in hospital we only give you 10 units initially then increase to 15 units Lantus plus slide scale. There is huge difference for you to take insulin between hospital and your home. You tell us you ate lots of sugar at home and want to keep your insulin schedule. I give our hospital schedule for insulin to you as your right to choose. advise you followup with your PCP to continue management of your diabetes. - TIME SPENT Time Spent in Discharge (Minutes): 30
== END 2020-05-31 12:40 | disposition home or self-care (01) | DRG 918 ==
LOC: EDUNIT# → ED 13:52 → MS2 16:17
PROVIDERS: ADMIT Nurse Practitioner Gerontology; ATTEND Nurse Practitioner Gerontology
DX: T44.7X4A Poisoning by beta-adrenoreceptor antagonists, undetermined, initial encounter (principal); N17.9 Acute kidney failure, unspecified; R00.1 Bradycardia, unspecified; R55 Syncope and collapse; E11.9 Type 2 diabetes mellitus without complications; I45.10 Unspecified right bundle-branch block; E87.5 Hyperkalemia; E86.0 Dehydration; E78.00 Pure hypercholesterolemia, unspecified; J44.9 Chronic obstructive pulmonary disease, unspecified; I10 Essential (primary) hypertension; I27.20 Pulmonary hypertension, unspecified; F41.9 Anxiety disorder, unspecified; G47.30 Sleep apnea, unspecified; R74.8 Abnormal levels of other serum enzymes; K21.9 Gastro-esophageal reflux disease without esophagitis; Y92.009 Unspecified place in unspecified non-institutional (private) residence as the place of occurrence of the external cause; Z79.4 Long term (current) use of insulin; Z79.51 Long term (current) use of inhaled steroids; Z79.82 Long term (current) use of aspirin; Z79.890 Hormone replacement therapy; Z79.899 Other long term (current) drug therapy; Z87.891 Personal history of nicotine dependence; Z91.14 Patient's other noncompliance with medication regimen
CPT/HCPCS: 36415; 71045; 80053; 81003; 81599; 83605; 83690; 83880; 84132; 84443; 84484; 85025; 85379; 93005; 93306; 94640; 96374; 99284; 99285; A9270; J1815; Q0162; 81001; 83036; 87086

== ENCOUNTER 2020-07-09 08:00 | Outpatient (CLI) | payer MEDICARE, OTHER ==
[2020-07-09 12:03] LABS: CALCIUM 9.1 mg/dL (8.5-10.3); CREATININE 1.6 mg/dL (0.6-1.2)
[2020-07-09 12:09] LABS: HGB - HEMOGLOBIN 10.9 g/dL (14.0-18.0); MEAN CORPUSCULAR HEMOGLOBIN 27.6 pg (27.0-31.0); MEAN CORPUSCULAR HGB CONC 31.2 g/dL (32.0-36.0); MEAN CORPUSCULAR VOLUME 88.4 fL (80.0-94.0); MEAN PLATELET VOLUME 10.2 fL (7.4-11.4); RED BLOOD COUNT 3.95 10^6/uL (4.70-6.10); RED CELL DISTRIBUTION WIDTH 14.1 % (12.0-15.0); WHITE BLOOD COUNT 5.9 x10^3/uL (4.8-10.8)
== END 2020-07-09 08:01 | disposition home or self-care (01) ==
LOC: LAB.WCP 08:00
PROVIDERS: ATTEND Family Medicine
DX: N18.3 Chronic kidney disease, stage 3 (moderate) (principal)
CPT/HCPCS: 36415; 80048; 85027

== ENCOUNTER 2020-09-10 07:41 | Outpatient (CLI) | payer MEDICARE, OTHER ==
[2020-09-10 11:56] LABS: BASOPHILS # (AUTO) 0.1 10^3/uL (0.0-0.1); EOSINOPHILS # (AUTO) 0.2 10^3/uL (0.0-0.7); EOSINOPHILS % (AUTO) 2.9 %; HGB - HEMOGLOBIN 11.1 g/dL (14.0-18.0); LYMPHOCYTES # (AUTO) 1.7 10^3/uL (1.5-3.5); LYMPHOCYTES % (AUTO) 28.9 %; MEAN CORPUSCULAR HEMOGLOBIN 29.1 pg (27.0-31.0); MEAN CORPUSCULAR HGB CONC 32.9 g/dL (32.0-36.0); MEAN CORPUSCULAR VOLUME 88.2 fL (80.0-94.0); MEAN PLATELET VOLUME 10.1 fL (7.4-11.4); MONOCYTES # (AUTO) 0.5 10^3/uL (0.0-1.0); MONOCYTES % (AUTO) 8.2 %; NEUTROPHILS # (AUTO) 3.4 10^3/uL (1.5-6.6); NEUTROPHILS % (AUTO) 58.7 %; PLT - PLATELET COUNT 235 10^3/uL (130-450); RED BLOOD COUNT 3.82 10^6/uL (4.70-6.10); RED CELL DISTRIBUTION WIDTH 14.7 % (12.0-15.0); WHITE BLOOD COUNT 5.8 x10^3/uL (4.8-10.8)
[2020-09-10 12:31] LABS: ALBUMIN 3.7 g/dL (3.2-5.5); ALBUMIN/GLOBULIN RATIO 0.9 (1.0-2.2); ALKALINE PHOSPHATASE 44 IU/L (42-121); ALT ALANINE AMINOTRANSFERASE 13 IU/L (10-60); AST ASPARTATE AMINOTRANSFERASE 16 IU/L (10-42); BILIRUBIN,TOTAL 0.6 mg/dL (0.2-1.0); BUN - BLOOD UREA NITROGEN 43 mg/dL (6-20); CALCIUM 8.9 mg/dL (8.5-10.3); CARBON DIOXIDE - CO2 21 mmol/L (21-32); CHLORIDE 109 mmol/L (101-111); CHOL/HDL RATIO 3.1 (<5.0); CHOLESTEROL 107 mg/dL; CREATININE 1.3 mg/dL (0.6-1.2); GLUCOSE 111 mg/dL (70-100); HDL CHOLESTEROL 34 mg/dL; LDL CHOLESTEROL,CALCULATED 54 mg/dL; LDL/HDL RATIO 1.6 (<3.6); SODIUM 138 mmol/L (135-145); TOTAL PROTEIN 7.6 g/dL (6.7-8.2); VLDL CHOLESTEROL 19 mg/dL
[2020-09-10 12:59] LABS: HEMOGLOBIN A1c% 6.4 % (4.27-6.07)
== END 2020-09-10 07:42 | disposition home or self-care (01) ==
LOC: LAB.WCP 07:41
PROVIDERS: ATTEND Family Medicine
DX: E11.9 Type 2 diabetes mellitus without complications (principal)
CPT/HCPCS: 36415; 80053; 80061; 83036; 83721; 85025

== ENCOUNTER 2020-10-06 09:57 | Emergency (ER) | payer MEDICARE, OTHER ==
[2020-10-06] MEDS ORDERED: traMADol 50 MG TABLET PO STA (10:25)
--- NOTE | 2020-10-06 11:01 | ED Physician Documentation ---
History of Present Illness - Stated complaint Stated Complaint: GLF/ PX IN RIBS - Chief complaint Chief Complaint: Trauma Ch/Bk - History obtained from History obtained from: Patient - History of Present Illness Timing: Yesterday Pain level max: 6 Pain level now: 4 - Additonal information Additional information: Patient states that he fell yesterday landing on his left side, injuring his left ribs. Worse with movement, better with rest. No cough. No bruising. No head injury. No neck or back pain. No other injuries PD PAST MEDICAL HISTORY - Past Medical History Cardiovascular: Hypertension, High cholesterol Respiratory: COPD, Shortness of breath, Sleep apnea, CPAP use Endocrine/Autoimmune: Type 2 diabetes GI: GERD, GI bleed, Ulcers : Nocturia, Frequency HEENT: Chronic hearing loss Psych: None Musculoskeletal: Osteoarthritis Derm: Psoriasis - Past Surgical History Past Surgical History: Yes General: Cholecystectomy, Other Ortho: Knee replacement - Present Medications Home Medications: Ambulatory Orders Medication Instructions Recorded Confirmed Aspirin 81 mg PO DAILY 09/18/16 05/30/20 metFORMIN [Glucophage] 500 mg PO BIDWM 09/18/16 05/30/20 Albuterol Sulf [Ventolin Hfa 1 - 2 puffs INH Q4HR PRN 09/19/16 05/30/20 Inhaler] Adalimumab [Humira Pen] 40 mg SQ Q14D 07/04/19 05/30/20 Allopurinol [Zyloprim] 300 mg PO DAILY 07/04/19 05/30/20 Azilsartan Medoxomil [Edarbi] 80 mg PO DAILY 07/04/19 05/30/20 Chlorthalidone 25 mg PO DAILY 07/04/19 05/30/20 Fluticasone Propionate 1 spray NS BID 07/04/19 05/30/20 Insulin Aspart [Novolog] 8 - 12 unit SQ TIDWM 07/04/19 05/30/20 Levothyroxine [Synthroid] 75 mcg PO QDAC 07/04/19 05/30/20 Simvastatin 10 mg PO QPM 07/04/19 05/30/20 Tiotropium Br/Olodaterol HCl 1 puffs IH BID 07/04/19 05/30/20 [Stiolto Respimat Inhal [place]] Amlodipine Besylate 10 mg PO DAILY 05/29/20 05/30/20 Cetirizine HCl 10 mg PO DAILY PRN 05/29/20 05/30/20 Furosemide [Lasix] 40 mg PO DAILY 05/29/20 05/30/20 Potassium Chloride [Klor-Con M20] 20 meq PO DAILY 05/29/20 Dulaglutide [Trulicity] 1.5 mg SQ Q7D 05/30/20 05/30/20 Famotidine [Pepcid] 20 mg PO DAILY 05/30/20 05/30/20 Hydralazine HCl 50 mg PO BID 05/30/20 Insulin Glargine [Lantus Solostar] 5 unit SQ DAILY #0 05/31/20 05/30/20 Insulin Glargine [Lantus Solostar] 10 units SQ QPM #0 05/31/20 05/30/20 Lidocaine Patch 5% [Lidoderm Patch] 1 patch TOP DAILY PRN #10 patch 10/06/20 Tramadol HCl [Ultram] 50 - 100 mg PO Q6HR PRN #30 tablet 10/06/20 - Allergies Allergies/Adverse Reactions: Allergies Allergy/AdvReac Type Severity Reaction Status Date / Time PAOLO Inhibitors Allergy Mild Dizziness Verified 10/06/20 10:11 codeine Allergy Mild Rash Verified 10/06/20 10:11 exenatide [From [place]] Allergy Unknown Verified 10/06/20 10:11 fluticasone propionate * Allergy Unknown Verified 10/06/20 10:11 [From Advair Diskus] hydrocodone Allergy Itching Verified 10/06/20 10:11 morphine Allergy Rash Verified 10/06/20 10:11 pollen extracts Allergy Unknown Verified 10/06/20 10:11 salmeterol xinafoate * Allergy Unknown Verified 10/06/20 10:11 [From Advair Diskus] - Social History Does the pt smoke?: No Smoking Status: Never smoker Does the pt drink ETOH?: No Does the pt have substance abuse?: No - Immunizations Immunizations are current?: Yes - POLST Patient has POLST: No PD ED PE NORMAL - Vitals Vital signs reviewed: Yes - General General: Alert and oriented X 3, No acute distress - HEENT HEENT: Moist mucous membranes - Neck Neck: Supple, no meningeal sign - Cardiac Cardiac: RRR - Respiratory Respiratory: No respiratory distress, Clear bilaterally, Other (TTP over the L anterior/posterior ribs 6-10. no crepitus or ecchymosis. ) - Abdomen Abdomen: Soft, Non tender, Non distended - Back Back: No spinal TTP - Derm Derm: Warm and dry - Extremities Extremities: Normal ROM s pain - Neuro Neuro: Alert and oriented X 3 Results - Vitals Vitals: Vital Signs - 24 hr 10/06/20 10/06/20 10/06/20 10:04 10:46 11:28 Temperature 36.9 C Heart Rate 95 83 77 Respiratory 20 18 18 Rate Blood Pressure 126/64 148/62 H 151/62 H O2 Saturation 95 97 99 Oxygen O2 Source Room air - Rads (name of study) Ribs w/cxr Radiology: Prelim report reviewed, EMP read contemporaneously, See rad report PD MEDICAL DECISION MAKING - ED course Complexity details: reviewed results, re-evaluated patient, considered differential, d/w patient ED course: 80-year-old male status post fall yesterday. Appears to have minimally displaced posterior lateral rib fractures of left seventh through 10th ribs. Does not want to stay in the hospital. Pain well controlled. We will have him follow-up closely with his doctor for further care. Patient counseled regarding signs and symptoms for which I believe and urgent re-evaluation would be necessary. Patient with good understanding of and agreement to plan and is comfortable going home at this time This document was made in part using voice recognition software. While efforts are made to proofread this document, sound alike and grammatical errors may occur. Minimally displaced posterolateral rib fractures of the left seventh through 10th ribs. . no PTX Departure - Departure Disposition: 01 Home, Self Care Clinical Impression: Fracture of rib Qualifiers: Encounter type: initial encounter Rib fracture type: multiple ribs Fracture type: closed Laterality: left Qualified Code(s): S22.42XA - Multiple fractures o f ribs, left side, initial encounter for closed fracture Condition: Good Instructions: ED Fx Rib Follow-Up: Ousmane Currie DO [Primary Care Provider] - Prescriptions: Tramadol HCl [Ultram] 50 - 100 mg PO Q6HR PRN #30 tablet PRN Reason: rib pain Lidocaine Patch 5% [Lidoderm Patch] 1 patch TOP DAILY PRN #10 patch PRN Reason: pain Comments: Return if you worsen. This should improve over the next week or two. You do have several broken ribs and these will take a few weeks to heal. Do not drink alcohol or drive while on narcotic pain medicine. Note that many narcotic pain relievers also contain tylenol/acetaminophen. Please ensure that your total dose of acetaminophen from all sources does not exceed 3 grams (3000mg) per day. You may constipated on this medication, take a stool softener such as "Colace" twice a day while you are on it. Also recommend a [id number] laxative such as senna or MiraLAX any day that you do not have a bowel movement. If you received narcotic pain medication in the emergency department, do not drive or operate machinery for the next 24 hours. Discharge Date/Time: 10/06/20 11:54
--- NOTE | 2020-10-06 11:21 | XRAY Report ---
PROCEDURE: Ribs w/PA Chest LT INDICATIONS: injury TECHNIQUE: 3 views of the left ribs were acquired, along with a single view chest. COMPARISON: Chest radiograph dated 05/22/2020 and 05/29/2020 FINDINGS: Surgical changes and devices: Surgical clips in the right upper quadrant. Bones and chest wall: There are minimally displaced posterior lateral rib fractures of the left seven th through 10th ribs. Degenerative changes of the shoulders and spine. Lungs and pleura: There is no pneumothorax or significant pleural effusion. Mediastinum: Mediastinal contours appear normal. Heart size is normal. Vascular calcifications wit hin the aorta. IMPRESSION: Minimally displaced posterolateral rib fractures of the left seventh through 10th ribs. No pneumothorax. Reviewed by: José Torres DO on 10/06/2020 10:20 AM MIKAL Approved by: José Torres DO on 10/06/2020 10:20 AM MIKAL Station ID: [id number]
[2020-10-06] MEDS ORDERED: LIDOCAINE PATCH 5% TOP STA (11:24)
[2020-10-06 11:29] VITALS: BP 151/62
== END 2020-10-06 11:54 | disposition home or self-care (01) ==
LOC: ED 09:57
DX: S22.42XA Multiple fractures of ribs, left side, initial encounter for closed fracture (principal); W18.30XA Fall on same level, unspecified, initial encounter; Y92.59 Other trade areas as the place of occurrence of the external cause; I10 Essential (primary) hypertension; E11.9 Type 2 diabetes mellitus without complications; Z79.4 Long term (current) use of insulin
CPT/HCPCS: 71101; 99283; 99284; A9270

== ENCOUNTER 2020-10-12 08:00 | Outpatient (CLI) | payer MEDICARE, OTHER ==
[2020-10-12 12:47] LABS: BASOPHILS # (AUTO) 0.1 10^3/uL (0.0-0.1); BASOPHILS % (AUTO) 0.6 %; EOSINOPHILS # (AUTO) 0.2 10^3/uL (0.0-0.7); EOSINOPHILS % (AUTO) 3.1 %; HGB - HEMOGLOBIN 11.5 g/dL (14.0-18.0); LYMPHOCYTES # (AUTO) 1.8 10^3/uL (1.5-3.5); LYMPHOCYTES % (AUTO) 23.5 %; MEAN CORPUSCULAR HEMOGLOBIN 28.7 pg (27.0-31.0); MEAN CORPUSCULAR HGB CONC 32.4 g/dL (32.0-36.0); MEAN CORPUSCULAR VOLUME 88.5 fL (80.0-94.0); MEAN PLATELET VOLUME 10.3 fL (7.4-11.4); MONOCYTES # (AUTO) 0.6 10^3/uL (0.0-1.0); MONOCYTES % (AUTO) 7.5 %; NEUTROPHILS % (AUTO) 64.9 %; PLT - PLATELET COUNT 243 10^3/uL (130-450); RED BLOOD COUNT 4.01 10^6/uL (4.70-6.10); RED CELL DISTRIBUTION WIDTH 14.6 % (12.0-15.0); WHITE BLOOD COUNT 7.7 x10^3/uL (4.8-10.8)
[2020-10-12 13:08] LABS: ALBUMIN 3.8 g/dL (3.2-5.5); ALBUMIN/GLOBULIN RATIO 0.9 (1.0-2.2); BILIRUBIN,TOTAL 0.4 mg/dL (0.2-1.0); CALCIUM 9.1 mg/dL (8.5-10.3); CREATININE 1.4 mg/dL (0.6-1.2); TOTAL PROTEIN 7.9 g/dL (6.7-8.2)
== END 2020-10-12 23:59 | disposition home or self-care (01) ==
LOC: LAB.WCP 08:00
PROVIDERS: ATTEND Internal Medicine Cardiovascular Disease
DX: I50.32 Chronic diastolic (congestive) heart failure (principal)
CPT/HCPCS: 36415; 80053; 85025

== ENCOUNTER 2020-10-23 11:06 | Outpatient (CLI) | payer MEDICARE, OTHER ==
[2020-10-23 18:55] LABS: CALCIUM 8.8 mg/dL (8.5-10.3); CREATININE 1.4 mg/dL (0.6-1.2)
== END 2020-10-23 23:59 | disposition home or self-care (01) ==
LOC: LAB.WCP 11:06
PROVIDERS: ATTEND Family Medicine
DX: E87.5 Hyperkalemia (principal)
CPT/HCPCS: 36415; 80048

== ENCOUNTER 2020-11-06 14:00 | Outpatient (CLI) | payer MEDICARE, OTHER ==
--- NOTE | 2020-11-06 18:12 | DEXA Report ---
PROCEDURE: Dexa Spine and/or Hip INDICATIONS: DISORDERS OF BONE DENSITY AND STRUCTURE TECHNIQUE: Dual energy x-ray absorptiometry (DXA) was performed on a [employer] System. Regions measur ed are the AP Spine, femoral neck, and if needed forearm. COMPARISON: None. FINDINGS: Lumbar Spine: Bone Mineral Density 1.504 g/cm/cm,T score 2.4 Left Hip: Bone Mineral Density 0.941 g/cm/cm,T score -1.1 Left Femoral Neck: Bone Mineral Density 0.824 g/cm/cm, T score -1.9 (T score greater or equal to -1.0: NORMAL) (T score from -1.1 to -2.4: OSTEOPENIA) (T score less than or equal to -2.5 to: OSTEOPOROSIS) Impression: Based on upright show criteria, the patient is osteopenic. Patients with diagnosis of osteoporosis or osteopenia should have regular bone mineral density assess ment. For those eligible for Medicare, routine testing is allowed once every 2 years. Testing frequ ency can be increased for patients who have rapidly progressing disease or for those who are receivin g medical therapy to restore bone mass. Reviewed by: Tyler Wang MD on 11/06/2020 6:11 PM PST Approved by: Tyler Wang MD on 11/06/2020 6:11 PM PST Station ID: [id number]
== END 2020-11-06 14:01 | disposition home or self-care (01) ==
LOC: DI 14:00
PROVIDERS: ATTEND Family Medicine
DX: M85.89 Other specified disorders of bone density and structure, multiple sites (principal)

== ENCOUNTER 2020-12-21 08:00 | Outpatient (CLI) | payer MEDICARE, OTHER ==
[2020-12-21 12:06] LABS: BASOPHILS # (AUTO) 0.1 10^3/uL (0.0-0.1); BASOPHILS % (AUTO) 0.8 %; EOSINOPHILS # (AUTO) 0.2 10^3/uL (0.0-0.7); EOSINOPHILS % (AUTO) 3.3 %; HGB - HEMOGLOBIN 10.9 g/dL (14.0-18.0); LYMPHOCYTES % (AUTO) 33.1 %; MEAN CORPUSCULAR HEMOGLOBIN 28.5 pg (27.0-31.0); MEAN CORPUSCULAR HGB CONC 31.8 g/dL (32.0-36.0); MEAN CORPUSCULAR VOLUME 89.8 fL (80.0-94.0); MONOCYTES # (AUTO) 0.5 10^3/uL (0.0-1.0); MONOCYTES % (AUTO) 8.2 %; NEUTROPHILS # (AUTO) 3.3 10^3/uL (1.5-6.6); NEUTROPHILS % (AUTO) 54.1 %; PLT - PLATELET COUNT 189 10^3/uL (130-450); RED BLOOD COUNT 3.82 10^6/uL (4.70-6.10)
[2020-12-21 12:26] LABS: HEMOGLOBIN A1c% 6.3 % (4.27-6.07)
[2020-12-21 12:28] LABS: ALBUMIN/GLOBULIN RATIO 1.1 (1.0-2.2); ALKALINE PHOSPHATASE 50 IU/L (42-121); ALT ALANINE AMINOTRANSFERASE 18 IU/L (10-60); AST ASPARTATE AMINOTRANSFERASE 19 IU/L (10-42); BILIRUBIN,TOTAL 0.7 mg/dL (0.2-1.0); BUN - BLOOD UREA NITROGEN 44 mg/dL (6-20); CARBON DIOXIDE - CO2 21 mmol/L (21-32); CHLORIDE 103 mmol/L (101-111); CHOL/HDL RATIO 2.3 (<5.0); CHOLESTEROL 96 mg/dL; CREATININE 1.4 mg/dL (0.6-1.2); GLUCOSE 102 mg/dL (70-100); HDL CHOLESTEROL 41 mg/dL; LDL CHOLESTEROL,CALCULATED 37 mg/dL; LDL/HDL RATIO 0.9 (<3.6); TOTAL PROTEIN 7.8 g/dL (6.7-8.2); VLDL CHOLESTEROL 18 mg/dL
[2020-12-21 12:32] LABS: CREATININE,URINE 50.5 mg/dL; MICROALBUM/CREATININE RATIO,UR 150.5 ug/mg (<30.0); MICROALBUMIN,URINE 7.6 mg/dL (0-300.0)
== END 2020-12-21 23:59 | disposition home or self-care (01) ==
LOC: LAB.WCP 08:00
PROVIDERS: ATTEND Family Medicine
DX: E11.9 Type 2 diabetes mellitus without complications (principal)
CPT/HCPCS: 36415; 80053; 80061; 82043; 82570; 83036; 83721; 84443; 85025

== ENCOUNTER 2022-05-06 07:31 | Outpatient (CLI) | payer MEDICARE, OTHER ==
[2022-05-06 11:46] LABS: MICROALBUM/CREATININE RATIO,UR 236.8 ug/mg (<30.0); MICROALBUMIN,URINE 22.5 mg/dL (0-300.0)
[2022-05-06 11:57] LABS: BASOPHILS % (AUTO) 0.8 %; EOSINOPHILS # (AUTO) 0.2 10^3/uL (0.0-0.7); EOSINOPHILS % (AUTO) 3.4 %; HGB - HEMOGLOBIN 11.7 g/dL (14.0-18.0); LYMPHOCYTES # (AUTO) 1.4 10^3/uL (1.5-3.5); MEAN CORPUSCULAR HEMOGLOBIN 29.4 pg (27.0-31.0); MEAN CORPUSCULAR HGB CONC 32.5 g/dL (32.0-36.0); MEAN CORPUSCULAR VOLUME 90.5 fL (80.0-94.0); MEAN PLATELET VOLUME 10.9 fL (7.4-11.4); MONOCYTES # (AUTO) 0.4 10^3/uL (0.0-1.0); MONOCYTES % (AUTO) 7.8 %; NEUTROPHILS # (AUTO) 3.2 10^3/uL (1.5-6.6); NEUTROPHILS % (AUTO) 60.8 %; PLT - PLATELET COUNT 171 10^3/uL (130-450); RED BLOOD COUNT 3.98 10^6/uL (4.70-6.10); RED CELL DISTRIBUTION WIDTH 13.2 % (12.0-15.0); WHITE BLOOD COUNT 5.3 x10^3/uL (4.8-10.8)
[2022-05-06 12:22] LABS: PLATELET MORPHOLOGY NORMAL APPEARANCE (NORMAL)
[2022-05-06 12:43] LABS: ESTIMATED AVERAGE GLUCOSE 137 mg/dL (70-100); HEMOGLOBIN A1c% 6.4 % (4.27-6.07)
[2022-05-06 13:07] LABS: BUN - BLOOD UREA NITROGEN 37 mg/dL (6-20); CALCIUM 8.7 mg/dL (8.5-10.3); CARBON DIOXIDE - CO2 21 mmol/L (21-32); CHLORIDE 106 mmol/L (101-111); CHOL/HDL RATIO 2.6 (<5.0); CHOLESTEROL 91 mg/dL; CREATININE 1.3 mg/dL (0.6-1.2); GFR - MDRD 53 (>89); GLUCOSE 113 mg/dL (70-100); HDL CHOLESTEROL 35 mg/dL; LDL CHOLESTEROL,CALCULATED 34 mg/dL; POTASSIUM 5.3 mmol/L (3.5-5.0); SODIUM 135 mmol/L (135-145); TRIGLYCERIDES 110 mg/dL; VLDL CHOLESTEROL 22 mg/dL
[2022-05-06 13:14] LABS: THYROID STIMULATING HORMONE 0.9 uIU/mL (0.34-5.60)
== END 2022-05-06 07:32 | disposition home or self-care (01) ==
LOC: LAB.N 07:31
PROVIDERS: ATTEND Nurse Practitioner
DX: E11.22 Type 2 diabetes mellitus with diabetic chronic kidney disease (principal); N18.31 Chronic kidney disease, stage 3a; E78.5 Hyperlipidemia, unspecified; E11.42 Type 2 diabetes mellitus with diabetic polyneuropathy; E03.9 Hypothyroidism, unspecified; Z79.4 Long term (current) use of insulin
CPT/HCPCS: 36415; 80048; 80061; 82043; 82570; 83036; 83721; 84443; 85025

== ENCOUNTER 2022-05-27 14:03 | Outpatient (CLI) | payer MEDICARE, OTHER | END 2022-05-27 14:04 | disposition short-term general hospital (02) | LOC: EMS 14:03 | DX: R07.89 Other chest pain (principal); R06.02 Shortness of breath | CPT/HCPCS: A0425; A0427 ==

== ENCOUNTER 2023-04-22 08:25 | Outpatient (CLI) | payer MEDICARE, OTHER ==
[2023-04-22 12:09] LABS: BASOPHILS % (AUTO) 0.6 %; EOSINOPHILS # (AUTO) 0.2 10^3/uL (0.0-0.7); EOSINOPHILS % (AUTO) 3.5 %; HCT - HEMATOCRIT 34.7 % (42.0-52.0); HGB - HEMOGLOBIN 11.5 g/dL (14.0-18.0); LYMPHOCYTES # (AUTO) 1.7 10^3/uL (1.5-3.5); MEAN CORPUSCULAR HEMOGLOBIN 28.8 pg (27.0-31.0); MEAN CORPUSCULAR HGB CONC 33.1 g/dL (32.0-36.0); MEAN PLATELET VOLUME 10.4 fL (7.4-11.4); MONOCYTES # (AUTO) 0.5 10^3/uL (0.0-1.0); MONOCYTES % (AUTO) 9.6 %; NEUTROPHILS # (AUTO) 2.9 10^3/uL (1.5-6.6); NEUTROPHILS % (AUTO) 53.9 %; PLT - PLATELET COUNT 178 10^3/uL (130-450); RED BLOOD COUNT 3.99 10^6/uL (4.70-6.10); WHITE BLOOD COUNT 5.4 x10^3/uL (4.8-10.8)
[2023-04-22 12:12] LABS: ESTIMATED AVERAGE GLUCOSE 163 mg/dL (70-100); HEMOGLOBIN A1c% 7.3 % (4.27-6.07)
[2023-04-22 12:31] LABS: ALBUMIN 3.4 g/dL (3.2-5.5); ALBUMIN/GLOBULIN RATIO 0.9 (1.0-2.2); ALKALINE PHOSPHATASE 38 IU/L (42-121); ALT ALANINE AMINOTRANSFERASE 16 IU/L (10-60); AST ASPARTATE AMINOTRANSFERASE 16 IU/L (10-42); BILIRUBIN,TOTAL 0.4 mg/dL (0.2-1.0); BUN - BLOOD UREA NITROGEN 31 mg/dL (6-20); CALCIUM 8.4 mg/dL (8.5-10.3); CARBON DIOXIDE - CO2 25 mmol/L (21-32); CHLORIDE 109 mmol/L (101-111); CHOL/HDL RATIO 3.1 (<5.0); CHOLESTEROL 110 mg/dL; CREATININE 1.3 mg/dL (0.6-1.2); GFR - MDRD 53 (>89); GLUCOSE 126 mg/dL (70-100); HDL CHOLESTEROL 35 mg/dL; LDL CHOLESTEROL,CALCULATED 51 mg/dL; LDL/HDL RATIO 1.5 (<3.6); POTASSIUM 4.5 mmol/L (3.5-5.0); SODIUM 139 mmol/L (135-145); TRIGLYCERIDES 122 mg/dL; VLDL CHOLESTEROL 24 mg/dL
[2023-04-22 12:35] LABS: THYROID STIMULATING HORMONE 2.82 uIU/mL (0.34-5.60)
[2023-04-22 13:00] LABS: CREATININE,URINE 118.5 mg/dL; MICROALBUM/CREATININE RATIO,UR 1475.1 ug/mg (<30.0); MICROALBUMIN,URINE 174.8 mg/dL (0-300.0)
== END 2023-04-22 08:26 | disposition home or self-care (01) ==
LOC: LAB.N 08:25
PROVIDERS: ATTEND Nurse Practitioner
DX: I10 Essential (primary) hypertension (principal); E78.5 Hyperlipidemia, unspecified; E11.9 Type 2 diabetes mellitus without complications; E03.9 Hypothyroidism, unspecified
CPT/HCPCS: 36415; 80053; 80061; 82043; 82570; 83036; 83721; 84443; 85025

== ENCOUNTER 2024-01-28 09:45 | Outpatient (CLI) | payer MEDICARE, OTHER ==
--- NOTE | 2024-01-29 09:17 | Mammography Report ---
MALE BILATERAL DIGITAL DIAGNOSTIC MAMMOGRAM 3D/2D: 01/28/2024 CLINICAL: Gynecomastia of bilateral breasts. No prior exams were available for comparison. Chest CT from 2018 was reviewed. No other significant masses, calcifications, or other findings are seen in either breast. Possible right greater than left gynecomastia. Bilateral postsurgical changes. IMPRESSION: INCOMPLETE: NEEDS ADDITIONAL IMAGING EVALUATION Possible right greater than left gynecomastia. Bilateral postsurgical changes. Right ultrasound recommended for confirmation. This exam was interpreted at Station ID: [id number]. NOTE: For mammograms, a report in lay terms will be sent to the patient. Approximately 15% of breast malignancies will not be visualized mammographically. In the management of a palpable breast mass, a negative mammogram must not discourage biopsy of a clinically suspicious lesion. Electronically Signed By: Teddy Rainey M.D. lc/:01/28/2024 11:03:15 ACR BI-RADS Category 0: Incomplete 3340F PARENCHYMAL PATTERN: (VD) - The breast(s) demonstrate(s) extremely dense parenchyma, limiting the sen sitivity of mammography. BI-RADS CATEGORY: (0) - 0 Ultrasound [id number] Immediate follow-up LATERALITY: (B)
--- NOTE | 2024-01-29 09:17 | Ultrasound Report ---
LIMITED ULTRASOUND OF RIGHT BREAST: 01/28/2024 CLINICAL: Gynecomastia Right Breast. Comparison is made to exam dated: 01/28/2024 mammogram - [facility]. Color flow ultrasound of the right breast retroareolar was performed. Dean scale images of the real- time examination were reviewed. Gynecomastia is seen on ultrasound. IMPRESSION: BENIGN There is no sonographic evidence of malignancy. Gynecomastia is seen on ultrasound. No discrete mass . Clinical followup is recommended for any new or enlarging symptoms. Chest CT from 2018 reviewed. Right greater than left gynecomastia was also seen. This exam was interpreted at Station ID: [id number]. Electronically Signed By: Teddy Rainey M.D. lc/:01/28/2024 11:04:14 letter sent: No_Letter Ultrasound BI-RADS: 2 Benign BI-RADS CATEGORY: (2) - 2 Unspecified - other recall n/a LATERALITY: (B)
== END 2024-01-28 09:46 | disposition home or self-care (01) ==
LOC: DI 09:45
PROVIDERS: ATTEND Nurse Practitioner
DX: N62 Hypertrophy of breast (principal)

== ENCOUNTER 2024-03-18 07:10 | Outpatient (CLI) | payer MEDICARE, OTHER ==
[2024-03-18 12:12] LABS: BASOPHILS # (AUTO) 0.1 10^3/uL (0.0-0.1); BASOPHILS % (AUTO) 0.9 %; EOSINOPHILS # (AUTO) 0.2 10^3/uL (0.0-0.7); EOSINOPHILS % (AUTO) 3.6 %; HCT - HEMATOCRIT 36.8 % (42.0-52.0); HGB - HEMOGLOBIN 11.9 g/dL (14.0-18.0); LYMPHOCYTES # (AUTO) 1.9 10^3/uL (1.5-3.5); LYMPHOCYTES % (AUTO) 34.6 %; MEAN CORPUSCULAR HEMOGLOBIN 28.5 pg (27.0-31.0); MEAN CORPUSCULAR HGB CONC 32.3 g/dL (32.0-36.0); MEAN PLATELET VOLUME 10.9 fL (7.4-11.4); MONOCYTES # (AUTO) 0.5 10^3/uL (0.0-1.0); MONOCYTES % (AUTO) 9.5 %; NEUTROPHILS # (AUTO) 2.9 10^3/uL (1.5-6.6); PLT - PLATELET COUNT 168 10^3/uL (130-450); RED BLOOD COUNT 4.18 10^6/uL (4.70-6.10); RED CELL DISTRIBUTION WIDTH 13.1 % (12.0-15.0); WHITE BLOOD COUNT 5.6 x10^3/uL (4.8-10.8)
[2024-03-18 12:35] LABS: CREATININE,URINE 103.4 mg/dL
[2024-03-18 12:36] LABS: ALBUMIN 3.9 g/dL (3.2-5.5); ALBUMIN/GLOBULIN RATIO 1.3 (1.0-2.2); ALKALINE PHOSPHATASE 46 IU/L (42-121); ALT ALANINE AMINOTRANSFERASE 15 IU/L (10-60); AST ASPARTATE AMINOTRANSFERASE 13 IU/L (10-42); BILIRUBIN,TOTAL 0.4 mg/dL (0.2-1.0); BUN - BLOOD UREA NITROGEN 32 mg/dL (6-20); CALCIUM 9.2 mg/dL (8.5-10.3); CARBON DIOXIDE - CO2 25 mmol/L (21-32); CHLORIDE 105 mmol/L (101-111); CHOLESTEROL 111 mg/dL; CREATININE 1.4 mg/dL (0.6-1.3); GFR - MDRD 49 (>89); GLUCOSE 154 mg/dL (74-104); HDL CHOLESTEROL 37 mg/dL; LDL CHOLESTEROL,CALCULATED 42 mg/dL; LDL/HDL RATIO 1.1 (<3.6); SODIUM 137 mmol/L (135-145); TRIGLYCERIDES 159 mg/dL (48-352); VLDL CHOLESTEROL 32 mg/dL
[2024-03-18 12:40] LABS: THYROID STIMULATING HORMONE 1.98 uIU/mL (0.34-5.60)
[2024-03-18 12:48] LABS: ESTIMATED AVERAGE GLUCOSE 157 mg/dL (70-100); HEMOGLOBIN A1c% 7.1 % (4.27-6.07)
[2024-03-18 12:56] LABS: MICROALBUMIN,URINE 88.1 mg/dL
== END 2024-03-18 07:11 | disposition home or self-care (01) ==
LOC: LAB.N 07:10
PROVIDERS: ATTEND Nurse Practitioner
DX: I10 Essential (primary) hypertension (principal); E78.5 Hyperlipidemia, unspecified; E11.9 Type 2 diabetes mellitus without complications; E03.9 Hypothyroidism, unspecified
CPT/HCPCS: 36415; 80053; 80061; 82043; 82570; 83036; 83721; 84443; 85025

== ENCOUNTER 2024-06-25 13:13 | Outpatient (CLI) | payer MEDICARE, OTHER ==
--- NOTE | 2024-06-26 02:37 | Ultrasound Report ---
PROCEDURE: Arterial Duplex Lwr Ext BL INDICATIONS: NO PEDAL PULSES, DIABETIC TECHNIQUE: Color and pulse Doppler interrogation was performed of both lower extremity arterial systems, with im age documentation. COMPARISON: None FINDINGS: Right lower extremity: Common femoral artery: 168 cm/sec, with triphasic flow. Deep femoral artery: 60 cm/sec, with biphasic flow. Proximal superficial femoral artery: 168 cm/sec, with triphasic flow. Mid superficial femoral artery: 155 cm/sec, with triphasic flow. Distal superficial femoral artery: 159 cm/sec, with triphasic flow. Popliteal artery: 80 cm/sec, with triphasic flow. Posterior tibial artery: 110 cm/sec, with monophasic flow. Anterior tibial artery/dorsalis pedis: 80/125 cm/sec, with biphasic/triphasic flow. Dean-scale imaging description: Wide patency from the common femoral to the popliteal with normal tr iphasic waveforms. Diffuse distal vascular calcifications. Posterior tibial has monophasic waveforms consistent with hemodynamically significant stenotic disease. Anterior tibial has a triphasic wavefor m. Left lower extremity: Common femoral artery: 161 cm/sec, with biphasic flow. Deep femoral artery: 70 cm/sec, with biphasic flow. Proximal superficial femoral artery: 130 cm/sec, with triphasic flow. Mid superficial femoral artery: 153 cm/sec, with triphasic flow. Distal superficial femoral artery: 154 cm/sec, with triphasic flow. Popliteal artery: 66 cm/sec, with biphasic flow. Posterior tibial artery: 139 cm/sec, with monophasic flow. Anterior tibial artery/dorsalis pedis: 80/75 cm/sec, with biphasic/triphasic flow. Dean-scale imaging description: Wide patency from the common femoral through the popliteal with norm al triphasic waveforms. Diffuse small vessel calcifications. Severe posterior tibial stenotic disease . Anterior tibial/dorsalis pedis appear patent with normal waveforms. IMPRESSION: 1. No evidence of inflow stenosis, widely patency from the common femorals through the popliteals. No rmal waveforms in the structures. 2. 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 3. Anterior tibials appear to likely be patent bilaterally. 4. Diffuse small vessel calcifications are consistent with long-standing diabetes. Reviewed by: Reji Camara MD on 06/26/2024 2:36 AM PDT Approved by: Reji Camara MD on 06/26/2024 2:36 AM PDT Station ID: [id number]
== END 2024-06-25 13:14 | disposition home or self-care (01) ==
LOC: DI 13:13
PROVIDERS: ATTEND Podiatrist
DX: R09.89 Other specified symptoms and signs involving the circulatory and respiratory systems (principal); E11.51 Type 2 diabetes mellitus with diabetic peripheral angiopathy without gangrene
CPT/HCPCS: 93925

== ENCOUNTER 2024-10-16 01:45 | Observation (INO) ==
[2024-10-16 02:04] LABS: BASOPHILS % (AUTO) 0.7 %; EOSINOPHILS % (AUTO) 0.3 %; HCT - HEMATOCRIT 31.9 % (42.0-52.0); HGB - HEMOGLOBIN 10.2 g/dL (14.0-18.0); LYMPHOCYTES % (AUTO) 16.3 %; MEAN CORPUSCULAR VOLUME 87.6 fL (80.0-94.0); MEAN PLATELET VOLUME 9.7 fL (7.4-11.4); MONOCYTES # (AUTO) 0.4 10^3/uL (0.0-1.0); MONOCYTES % (AUTO) 7.1 %; NEUTROPHILS # (AUTO) 4.6 10^3/uL (1.5-6.6); NEUTROPHILS % (AUTO) 75.4 %; PLT - PLATELET COUNT 239 10^3/uL (130-450); RED BLOOD COUNT 3.64 10^6/uL (4.70-6.10)
--- NOTE | 2024-10-16 02:09 | ED Physician Documentation ---
PD HPI Fall Stated complaint Stated Complaint: GLF, LOWER BACK PAIN Chief complaint Chief Complaint: Back Pain Additional information Additional information: SHELLY. HPI from EMS, patient. Patient presents due to syncopal episode while on the toilet. The patient says that shortly [facility], he was sitting on his toilet at home straining to have a bowel movement; patient says he feels like he has been constipated over the past few days. As he continued to strain to have the bowel movement, he says he became lightheaded and experienced generalized weakness. He then tried to stand up and next thing he recalls is waking up on the floor. There were no witnesses and thus he is unable to quantify the amount of time that he was unconscious. Patient's called 911 upon finding him on the bathroom floor. Patient complains of generalized headache and low back pain. He is not on any blood- thinning medication. Note the patient was treated and released from this emergency department 2 days ago and again yesterday for right thumb paronychia. [place] Coma Scale Assess Eye opening: Spontaneous Verbal response: Oriented Motor response: Obeys Commands Total score: 15 Meds/Allgy Home Medications Ambulatory Orders Medication Instructions Recorded Confirmed Permanent Disabled Placard 09/20/24 10/13/24 adalimumab 40 mg/0.8 mL 40 mg subcut Q2W 09/20/24 10/13/24 subcutaneous syringe kit (Humira) adalimumab-bwwd 40 mg/0.8 mL 40 mg subcut Q2W 09/20/24 10/13/24 subcutaneous syringe (Hadlima) albuterol sulfate 90 mcg/actuation 2 puff inhalation QID 09/20/24 10/13/24 aerosol inhaler amlodipine 10 mg tablet 10 mg PO DAILY 09/20/24 10/13/24 atorvastatin 40 mg tablet (Lipitor) 40 mg PO QPM #90 tabs 09/20/24 10/13/24 blood sugar diagnostic (Precision 09/20/24 10/13/24 Xtra Test strips) cetirizine 10 mg tablet 10 mg PO QDAY PRN 09/20/24 10/13/24 cyanocobalamin (vitamin B-12) 500 500 mcg PO QDAY 09/20/24 10/13/24 mcg tablet famotidine 20 mg tablet (Pepcid) 20 mg PO QDAY 09/20/24 10/13/24 fluticasone propionate 50 1 spray intranasal BID 09/20/24 10/13/24 mcg/actuation nasal spray,suspension hydralazine 50 mg tablet 50 mg PO BID 09/20/24 10/13/24 hydroxyzine HCl 25 mg tablet 25 mg PO QID PRN 09/20/24 10/13/24 insulin glargine 100 unit/mL (3 20 unit subcut QDBREAKFAST 09/20/24 10/13/24 mL) subcutaneous pen (Lantus Solostar U-100 Insulin) insulin syringe-needle U-100 0.3 09/20/24 10/13/24 mL 30 gauge x 1/2" (BD Insulin Syringe Ultra-Fine) insulin syringe-needle U-100 1 mL 09/20/24 10/13/24 31 gauge x 5/16" (BD Insulin Syringe Ultra-Fine) levothyroxine 75 mcg tablet 75 mcg PO QDAC 09/20/24 10/13/24 lidocaine 5 % topical patch 1 patch topical DAILY PRN pain 09/20/24 10/13/24 prazosin 1 mg capsule 2 mg PO QPM 09/20/24 10/13/24 semaglutide 2 mg/dose (8 mg/3 mL) 2 mg subcut QWEEK 09/20/24 10/13/24 subcutaneous pen injector (Ozempic) tiotropium 2.5 mcg-olodaterol 2.5 1 puff inhalation BID 09/20/24 10/13/24 mcg/actuation mist for inhalation (Stiolto Respimat) duloxetine 20 mg capsule,delayed 20 mg PO BID 10/07/24 10/13/24 release cephalexin 500 mg capsule 500 mg PO QID #28 caps 10/13/24 oxycodone 5 mg tablet 5 - 10 mg (1 - 2 x 5 mg) PO Q6H 10/13/24 PRN pain #14 tabs sulfamethoxazole 800 1 tab PO BID #14 tabs 10/13/24 mg-trimethoprim 160 mg tablet (Bactrim DS) bacitracin 500 unit/gram topical 1 applic topical Q8H #14 grams 10/15/24 ointment Allergies Allergies Allergy/AdvReac Type Severity Reaction Status Date / Time PAOLO Inhibitors Allergy Mild Dizziness Verified 10/16/24 01:54 codeine Allergy Mild Rash Verified 10/16/24 01:54 exenatide (From Byetta) Allergy Unknown Verified 10/16/24 01:54 fluticasone propionate * Allergy Unknown Verified 10/16/24 01:54 (From Advair Diskus) hydrocodone Allergy Itching Verified 10/16/24 01:54 morphine Allergy Rash Verified 10/16/24 01:54 pollen extracts Allergy Unknown Verified 10/16/24 01:54 pregabalin (From Lyrica) Allergy Unknown Verified 10/16/24 01:54 salmeterol xinafoate * (From Allergy Unknown Verified 10/16/24 01:54 Advair Diskus) [facility] Medical History Medical History Back pain Bradycardia Hyperkalemia Type 2 diabetes mellitus Anxiety Chronic kidney disease, stage 3b Peripheral vascular disease COPD (chronic obstructive pulmonary disease) Hyperlipidemia Gout Surgical History Surgical History Hx of cataract surgery 2023 Social History Social History (Updated 10/13/24 @ 08:57 by Laura Alston RN) Smoking Status: Former smoker If you are a former smoker, when did you quit? (Date/Year): 1987 Number of Years Smoked: 30 Second hand tobacco smoke exposure: No Do you dip or chew tobacco?: No Do you vape?: No Living arrangement: At home Living Condition: With spouse/s.o. Support Person: No Relationship: Level: Independent Do you feel safe in your home environment?: Yes Suffered physical, verbal, emotional, or financial abuse?: No History of Abuse: No ETOH Use: None Substance Use: denies use Service: Yes POLST Patient has POLST: No Exam Constitutional normal general appearance, no apparent distress, no limitations and alert HENMT normocephalic and head/scalp atraumatic Eyes PERRL and EOMs intact bilaterally Neck/C-Spine cervical spine nontender Respiratory breath sounds equal bilaterally, normal respiratory effort and clear to auscultation bilaterally Cardiovascular normal heart rate noted, regular rhythm noted and murmur noted (DARIA left 2nd ICS) (systolic) and (II/) Gastrointestinal abdomen soft to palpation and nontender to palpation Back/Pelvis spine normal to inspection, no thoracic spine tenderness and no lumbar spine tenderness (mild bilateral paralumbar tenderness without midline tenderness. 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, no movement abnormality noted, no focal motor deficit noted, no sensory deficits noted and GCS 15 Psychiatry mental status grossly normal, oriented x3, thought process normal, cooperative, affect normal, psychomotor activity normal and memory normal Results Vitals Vitals: Vital Signs - 24 hr 10/15/24 13:15 10/15/24 13:52 10/16/24 01:49 Temperature 36.6 C Temperature Source Temporal Artery Scan Pulse Rate 76 Respiratory Rate 18 Blood Pressure 149/57 H O2 Saturation 98 O2 Source Room air Room air Pain Intensity 8 10 10/16/24 02:37 10/16/24 03:30 10/16/24 04:35 Temperature Temperature Source Pulse Rate 82 68 Respiratory Rate 16 16 Blood Pressure 150/53 H 147/56 H O2 Saturation 96 96 O2 Source Room air Room air Pain Intensity 10 10/16/24 06:05 10/16/24 07:56 10/16/24 07:57 Temperature 36.1 C L Temperature Source Temporal Artery Scan Pulse Rate 97 H 80 Respiratory Rate 16 19 Blood Pressure 128/43 L 165/87 H O2 Saturation 97 98 O2 Source Room air Pain Intensity 7 7 Oxygen O2 Source Room air EKG (time done) 02:35: EKG releavant findings:: EKG personally interpreted by author of this note. Relevant findings are: Rate: Rate (enter#) (69) Rhythm: NSR Dubach: LAD and Anterior hemiblock Intervals: Normal SD QRS: RBBB Ischemia: Normal ST segments Labs Labs: Laboratory Tests 10/16/24 10/16/24 10/16/24 01:52 01:54 06:35 WBC 6.0 RBC 3.64 L Hgb 10.2 L Hct 31.9 L MCV 87.6 MCH 28.0 MCHC 32.0 RDW 13.0 Plt Count 239 MPV 9.7 Neut # (Auto) 4.6 Lymph # (Auto) 1.0 L Bremer # (Auto) 0.4 Eos # (Auto) 0.0 Baso # (Auto) 0.0 Absolute Nucleated RBC 0.00 Nucleated RBC % 0.0 Sodium 134 L 134 L Potassium 5.4 H 5.7 H Chloride 106 108 Carbon Dioxide 17 L 20 L Anion Gap 11.0 6.0 BUN 54 H 52 H Creatinine 2.5 H 2.4 H Estimated GFR (MDRD) 25 L 26 L Glucose 129 H 129 H POC Whole Bld Glucose 126 Calcium 8.5 8.3 L Total Bilirubin 0.4 AST 33 ALT 19 Alkaline Phosphatase 50 Troponin I High Sens 11.8 12.4 Total Protein 6.8 Albumin 3.5 Globulin 3.3 Albumin/Globulin Ratio 1.1 Lipase 32 Rads (name of study) CTH: Relevant Findings:: Prelim report reviewed and See rad report CT cervical spine: Relevant Findings:: Prelim report reviewed and See rad report CT lumbar spine: Relevant Findings:: Prelim report reviewed and See rad report chest xray: Relevant Findings:: Prelim report reviewed and See rad report PD Medical Decision Making ED course Complexity details: reviewed old records, reviewed results, re-evaluated patient, considered differential and d/w patient ED course: Patient had received 100 mcg fentanyl en route by EMS and reported improvement with this intervention on my initial H&P. However, later in his ED stay as the fentanyl was wearing off, the patient reported his back pain was returning and worsening, exacerbated with mild provocation such as trying to sit up in bed. He initially had FROM in both hips but on reevaluation he is having acute exacerbation of his low back pain (and now has right groin pain) with ROM of either lower extremity. Thus, he is given 25 mcg fentanyl; the reason for this low-dose is that when he is at rest he is not only in NAD but falls asleep and begins to snore. After several hours of observation the emergency department, ED RN tells me that patient was able to stand and pivot at bedside albeit with assistance; ED RN also says that patient appeared unsteady during that process. Of greater concern from the emergent standpoint is the patient's BUN and creatinine are elevated. While his BUN is only slightly above his baseline, his creatinine is notably above his baseline (has had creatinine levels above normal but no previous results in [employer] at/above 2.0 and today's creatinine is 2.5). Furthermore, he is hyperkalemic with potassium level 5.4. He is given 1 liter NS but on recheck his potassium has increased to 5.7 (creatinine minimally improved to 2.4); he is thus admitted to obersvation status for his MELISSA and hyperkalemia Discharge Plan Discharge Patient Disposition: ED Place in Observation Condition: Stable Clinical Impression: Acute hyperkalemia Back pain Qualifiers: Back pain location: low back pain Chronicity: acute Back pain laterality: bilateral Sciatica presence: without sciatica Qualified Code(s): M54.50 - Low back pain, unspecified
[2024-10-16 02:22] LABS: ALBUMIN 3.5 g/dL (3.2-5.5); ALBUMIN/GLOBULIN RATIO 1.1 (1.0-2.2); BILIRUBIN,TOTAL 0.4 mg/dL (0.2-1.0); CALCIUM 8.5 mg/dL (8.5-10.3); CREATININE 2.5 mg/dL (0.6-1.3); POTASSIUM 5.4 mmol/L (3.5-4.5); TOTAL PROTEIN 6.8 g/dL (6.4-8.9)
[2024-10-16 02:33] LABS: TROPONIN I HIGH SENSITIVITY 11.8 ng/L (2.3-19.7)
[2024-10-16] MEDS: SODIUM CHLORIDE 0.9% 1,000 ML IV STA (04:01)
[2024-10-16] MEDS: fentaNYL 100 MCG/2 ML VIAL IVP STA (04:35)
[2024-10-16 07:10] LABS: CALCIUM 8.3 mg/dL (8.5-10.3); CREATININE 2.4 mg/dL (0.6-1.3); POTASSIUM 5.7 mmol/L (3.5-4.5)
[2024-10-16 07:12] LABS: TROPONIN I HIGH SENSITIVITY 12.4 ng/L (2.3-19.7)
--- NOTE | 2024-10-16 08:26 | CT Report ---
PROCEDURE: CT Cervical Spine WO INDICATIONS: fall, neck pain TECHNIQUE: Noncontrast 3 mm thick sections acquired from the skull base to the T4 level. Sagittal and coronal r eformats were then constructed. For radiation dose reduction, the following was used: automated exp osure control, adjustment of mA and/or kV according to patient size. COMPARISON: None. FINDINGS: Image quality: Excellent. Bones: No fractures or dislocations. Loss of disc height, degenerative endplate changes and bilatera l uncovertebral hypertrophic changes are noted throughout cervical spine. Large flowing anterior oste ophyte formation are noted fusing C2-C4 and C5-C7 levels. Dorsal disc osteophyte complex formation at C5-6 and C6-7 levels also seen causing moderate central canal stenosis. Visualized superior ribs are intact. Soft tissues: Prevertebral soft tissues are normal in thickness. No paravertebral hematomas. No ap ical pneumothoraces. IMPRESSION: 1. No acute cervical spine fracture or dislocation. 2. Severe spondylitic changes as described above. 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 Findings are concordant with preliminary interpretation provided by [facility]. Reviewed by: Minor Pena MD on 10/16/2024 8:25 AM PST Approved by: Minor Pena MD on 10/16/2024 8:25 AM PST Station ID: [id number]
--- NOTE | 2024-10-16 08:28 | CT Report ---
PROCEDURE: CT Head WO INDICATIONS: head injury with LOC TECHNIQUE: Noncontrast 4.5 mm thick angled axial sections acquired from the foramen magnum to the vertex. For r adiation dose reduction, the following was used: automated exposure control, adjustment of mA and/or kV according to patient size. COMPARISON: None. FINDINGS: Image quality: Excellent. CSF spaces: Basal cisterns are patent. No extra-axial fluid collections. Ventricles are normal in size and shape. Brain: No midline shift. No intracranial masses or hemorrhage. Dean-white matter interface is norm al. Skull and face: Calvarium and visualized facial bones are intact, without suspicious lesions. Sinuses: Visualized sinuses and mastoids are clear. IMPRESSION: No acute intracranial pathology. Findings are concordant with preliminary interpretation provided by [facility]. Reviewed by: Minor Garcia MD on 10/16/2024 8:26 AM [facility] [[email or web address]] Approved by: Minor Garcia MD on 10/16/2024 8:26 AM [facility] [[email or web address]] Station ID: [id number]
--- NOTE | 2024-10-16 08:29 | XRAY Report ---
PROCEDURE: XR Chest 1V INDICATIONS: syncope TECHNIQUE: One view of the chest was acquired. COMPARISON: Rib series dated 10/06/2020 FINDINGS: Surgical changes and devices: None. Lungs and pleura: No pleural effusions or pneumothorax. No consolidation. Mediastinum: Mediastinal contours appear normal. Heart size is enlarged. Bones and chest wall: No suspicious bony lesions. Overlying soft tissues appear unremarkable. IMPRESSION: No acute cardiopulmonary process. Reviewed by: Minor Garcia MD on 10/16/2024 8:27 AM [facility] Approved by: Minor Garcia MD on 10/16/2024 8:27 AM [facility] Station ID: [id number]
--- NOTE | 2024-10-16 08:33 | XRAY Report ---
PROCEDURE: XR Hip w/Pelvis 2-3V RT INDICATIONS: fall, right groin pain TECHNIQUE: 3 views of the hip were acquired. COMPARISON: None. FINDINGS: Bones: No fractures or dislocations. Moderate right hip joint osteoarthritic changes are noted. No e vidence of avascular necrosis of femoral head. No suspicious bony lesions. Soft tissues: No suspicious soft tissue calcifications or masses. IMPRESSION: No acute bony abnormality. Moderate right hip joint osteoarthritis. No evidence of avascular necrosis . Findings are concordant with preliminary interpretation provided by [facility]. Reviewed by: Minor Garcia MD on 10/16/2024 8:32 AM PST Approved by: Minor Garcia MD on 10/16/2024 8:32 AM PST Station ID: [id number]
[2024-10-16] MEDS ORDERED: BISACODYL 10 MG SUPP PR PRN (08:48)
--- NOTE | 2024-10-16 09:04 | HISTORY & PHYSICAL EXAMINATION ---
Chief Complaint Chief Complaint Chief Complaint: Syncope History of Present Illness Admitted From Admitted From:: home History Obtained From History obtained from: patient Exam Limitations: none History of Present Illness HPI Comment/Other: 84-year-old male H significant for COPD, insulin-dependent diabetes type 2, Presented after fall. He was recently started on oxycodone for a thumb injury sustained in a prior fall. He states he has been constipated since starting this oxycodone, and he was straining on the toilet to try and have a bowel movement. He stood up quickly after this and started to turn and then he passed out. His next memory was EMS arriving on the scene. He denies fever, chills, chest pain, palpitations. In the ER, workup was significant for CT of L-spine showing a fractured osteophyte. He denies any new numbness in his legs more than his baseline neuropathy. He denies urinary/bowel incontinence or retention. He does report a sore throat, states this is from his COPD. He was noted to have a Meds/Allgy Home Medications Ambulatory Orders Medication Instructions Recorded Confirmed Permanent Disabled Placard 09/20/24 10/13/24 adalimumab 40 mg/0.8 mL 40 mg subcut Q2W 09/20/24 10/13/24 subcutaneous syringe kit (Humira) adalimumab-bwwd 40 mg/0.8 mL 40 mg subcut Q2W 09/20/24 10/13/24 subcutaneous syringe (Hadlima) albuterol sulfate 90 mcg/actuation 2 puff inhalation QID 09/20/24 10/13/24 aerosol inhaler amlodipine 10 mg tablet 10 mg PO DAILY 09/20/24 10/13/24 atorvastatin 40 mg tablet (Lipitor) 40 mg PO QPM #90 tabs 09/20/24 10/13/24 blood sugar diagnostic (Precision 09/20/24 10/13/24 Xtra Test strips) cetirizine 10 mg tablet 10 mg PO QDAY PRN 09/20/24 10/13/24 cyanocobalamin (vitamin B-12) 500 500 mcg PO QDAY 09/20/24 10/13/24 mcg tablet famotidine 20 mg tablet (Pepcid) 20 mg PO QDAY 09/20/24 10/13/24 fluticasone propionate 50 1 spray intranasal BID 09/20/24 10/13/24 mcg/actuation nasal spray,suspension hydralazine 50 mg tablet 50 mg PO BID 09/20/24 10/13/24 hydroxyzine HCl 25 mg tablet 25 mg PO QID PRN 09/20/24 10/13/24 insulin glargine 100 unit/mL (3 20 unit subcut QDBREAKFAST 09/20/24 10/13/24 mL) subcutaneous pen (Lantus Solostar U-100 Insulin) insulin syringe-needle U-100 0.3 09/20/24 10/13/24 mL 30 gauge x 1/2" (BD Insulin Syringe Ultra-Fine) insulin syringe-needle U-100 1 mL 09/20/24 10/13/24 31 gauge x 5/16" (BD Insulin Syringe Ultra-Fine) levothyroxine 75 mcg tablet 75 mcg PO QDAC 09/20/24 10/13/24 lidocaine 5 % topical patch 1 patch topical DAILY PRN pain 09/20/24 10/13/24 prazosin 1 mg capsule 2 mg PO QPM 09/20/24 10/13/24 semaglutide 2 mg/dose (8 mg/3 mL) 2 mg subcut QWEEK 09/20/24 10/13/24 subcutaneous pen injector (Ozempic) tiotropium 2.5 mcg-olodaterol 2.5 1 puff inhalation BID 09/20/24 10/13/24 mcg/actuation mist for inhalation (Stiolto Respimat) duloxetine 20 mg capsule,delayed 20 mg PO BID 10/07/24 10/13/24 release cephalexin 500 mg capsule 500 mg PO QID #28 caps 10/13/24 oxycodone 5 mg tablet 5 - 10 mg (1 - 2 x 5 mg) PO Q6H 10/13/24 PRN pain #14 tabs sulfamethoxazole 800 1 tab PO BID #14 tabs 10/13/24 mg-trimethoprim 160 mg tablet (Bactrim DS) bacitracin 500 unit/gram topical 1 applic topical Q8H #14 grams 10/15/24 ointment Allergies Allergies Allergy/AdvReac Type Severity Reaction Status Date / Time PAOLO Inhibitors Allergy Mild Dizziness Verified 10/16/24 01:54 codeine Allergy Mild Rash Verified 10/16/24 01:54 exenatide (From Byetta) Allergy Unknown Verified 10/16/24 01:54 fluticasone propionate * Allergy Unknown Verified 10/16/24 01:54 (From Advair Diskus) hydrocodone Allergy Itching Verified 10/16/24 01:54 morphine Allergy Rash Verified 10/16/24 01:54 pollen extracts Allergy Unknown Verified 10/16/24 01:54 pregabalin (From Lyrica) Allergy Unknown Verified 10/16/24 01:54 salmeterol xinafoate * (From Allergy Unknown Verified 10/16/24 01:54 Advair Diskus) [facility] Medical History Medical History Back pain Bradycardia Hyperkalemia Type 2 diabetes mellitus Anxiety Chronic kidney disease, stage 3b Peripheral vascular disease COPD (chronic obstructive pulmonary disease) Hyperlipidemia Gout Surgical History Surgical History Hx of cataract surgery 2023 Social History Social History (Updated 10/13/24 @ 08:57 by Laura Alston RN) Smoking Status: Former smoker If you are a former smoker, when did you quit? (Date/Year): 1987 Number of Years Smoked: 30 Second hand tobacco smoke exposure: No Do you dip or chew tobacco?: No Do you vape?: No Living arrangement: At home Living Condition: With spouse/s.o. Support Person: No Relationship: Level: Independent Do you feel safe in your home environment?: Yes Suffered physical, verbal, emotional, or financial abuse?: No History of Abuse: No ETOH Use: None Substance Use: denies use Service: Yes POLST Patient has POLST: No Review of Systems Status of ROS: 10 or more systems reviewed and unremarkable except as noted in history and below Constitutional Denies: Fever or Chills Ears, nose, mouth, and throat Reports: Throat pain Cardiovascular Reports: Syncope and lightheadedness; Denies: Irregular heart rate, chest pain, palpitations, swelling of feet/ankles or shortness of breath with exertion Respiratory Denies: Shortness of breath Gastrointestinal Reports: Abdominal pain (Mildly tender to palpation) and Constipation Genitourinary Denies: Painful urination Musculoskeletal Reports: Back pain (Chronic, worse after fall) Neurological Reports: Numbness in extremities (Chronic); Denies: Headache Psychiatric Denies: Depression or Anxiety Exam Constitutional normal general appearance and abnormal body habitus (obese) HENMT normocephalic and head/scalp atraumatic Eyes PERRL Neck/C-Spine visual inspection normal Lymph no lymphadenopathy noted Chest inspection of chest normal Respiratory breath sounds equal bilaterally and clear to auscultation bilaterally Cardiovascular normal heart rate noted and regular rhythm noted Gastrointestinal Protuberant abdomen, Mildly tender to palpation Genitourinary no CVA tenderness Back/Pelvis Able to move legs with only mild back discomfort Extremities normal to inspection and no deformity 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 Lokelma (2) Back pain: Plan: No new neurosensory changes in legs No urinary/bowel retention or incontinence CT with fractured osteophyte Decadron 6 mg p.o. daily Scheduled Tylenol Flexeril PT/OT consult Qualifiers: Back pain laterality: midline Back pain location: low back pain C hronicity: acute Sciatica presence: without sciatica Qualified Code(s): M54.5 - Low back pain (3) Constipation: Plan: I have ordered a one-time dose of milk of magnesia As needed Dulcolax suppository Encourage p.o. intake Also Lokelma as above (4) Type 2 diabetes mellitus: Plan: Managed with Lantus, Ozempic at home Continue Lantus after pharmacy review SSI (5) Essential hypertension, benign: Plan: Continue home regimen after pharmacy review Plan Placed in observation Patient would like to remain full code His will be his surrogate decision-maker Lab Results Lab results reviewed: Yes 10/16/24 01:54 10/16/24 06:35 Diagnostic Imaging Results Diagnostic Imaging Results: positive Read contemporaneously Diagnostic Imaging Results Comments: CT L-spine with fractured osteophyte. Reviewed images with ER provider Core Measures Anticipated LOS I expect patient to be DC'd or transferred within 96 hours.: Yes DVT/VTE - Prophylaxis VTE/DVT Device ordered at admit?: No VTE/DVT Prophylaxis med ordered at admit?: Yes
--- NOTE | 2024-10-16 09:27 | CT Report ---
PROCEDURE: CT Lumbar Spine WO INDICATIONS: fall, low back pain TECHNIQUE: Noncontrast 3 mm thick sections acquired from the T12 level to the sacrum. Sagittal and coronal refo rmats were constructed. For radiation dose reduction, the following was used: automated exposure co ntrol, adjustment of mA and/or kV according to patient size. COMPARISON: None. FINDINGS: Image quality: Excellent. Bones: There is normal bony alignment. No acute vertebral body compression fractures. Bridging ost eophyte formation along anterior aspect of the lumbar spine is seen with suggestion of acute fracture involving inferior aspect of left anterior osteophyte without significant displacement. This is best seen on series 10 image 57. No suspicious lytic or blastic bony lesions. Central spinal caliber is of normal overall caliber. No pars defects. T12-L1: Degenerative endplate changes are seen. Diffuse disc bulge and bilateral facet arthrosis wit h mild bilateral neural foraminal narrowing, no significant central canal stenosis. L1-L2: Degenerative endplate changes are seen. No significant disc bulge, canal stenosis or neural foraminal narrowing. L2-L3: Degenerative endplate changes are seen. Bilateral facet arthrosis are noted. No significant central canal stenosis. Left worse in right bilateral neural foraminal narrowing is seen. L3-L4: Loss of disc height and degenerative endplate changes are seen. Broad-based disc bulge and b ilateral facet arthrosis causing moderate to severe central canal stenosis and bilateral neural ana cristina inal narrowing. L4-L5: Degenerative endplate changes are noted. Broad-based disc bulge and bilateral facet arthrosi s with moderate to severe central canal stenosis and bilateral neural foraminal narrowing. L5-S1: Vacuum disc phenomenon is seen at L5-S1 level. Broad-based disc bulge and bilateral facet ar throsis with [id number] central canal stenosis and severe bilateral neural foraminal narrowing. Soft tissues: No retroperitoneal masses or hematomas. Visualized aorta is normal in caliber. IMPRESSION: 1. Suggestion of nondisplaced fracture involving left inferior osteophyte at anterior aspect of L4 le nirali. 2. No acute compression fracture or spondylolisthesis in lumbar spine. No suspicious bony lesions. 3. Spondylitic changes throughout lumbar spine as above. Findings are concordant with preliminary interpretation provided by [facility]. Reviewed by: Minor Garcia MD on 10/16/2024 9:25 AM PST Approved by: Minor Garcia MD on 10/16/2024 9:25 AM [facility] Station ID: [id number]
[2024-10-16] MEDS ORDERED: SODIUM CHLORIDE FLUSH 0.9% 10 ML SYRINGE IVP PRN (09:52)
[2024-10-16] MEDS ORDERED: guaiFENesin 100 MG/5 ML UDC PO PRN (09:52)
[2024-10-16] MEDS: CHERRY SYRUP 10 ML UDC PO SCH (10:31)
[2024-10-16] MEDS: DEXAMETHASONE 10 MG/ML VIAL PO SCH (10:31)
[2024-10-16] MEDS: MAGNESIUM HYDROXIDE 2,400 MG/30 ML UDC PO STA (10:32)
[2024-10-16] MEDS: CYCLOBENZAPRINE 10 MG TABLET PO SCH ×2 (10:38→18:41)
[2024-10-16] MEDS: SODIUM ZIRCONIUM CYCLOSILICATE 5 GM PACKET PO SCH (10:38)
[2024-10-16] MEDS: ACETAMINOPHEN 500 MG TABLET PO SCH ×2 (10:38→18:39)
[2024-10-16] MEDS: SODIUM CHLORIDE FLUSH 0.9% 10 ML SYRINGE IVP SCH (10:39)
--- NOTE | 2024-10-16 10:44 | PHARMACY PROGRESS NOTE ---
Best Possible Medication History Admit Date and Time: 10/16/24 [id number] Home Medications Medication Instructions Recorded Confirmed Type Permanent Disabled Placard 09/20/24 10/13/24 History adalimumab-bwwd 40 mg/0.8 mL 40 mg subcut Q2W 09/20/24 10/16/24 History subcutaneous syringe (Hadlima) albuterol sulfate 90 mcg/actuation 2 puff inhalation QID 09/20/24 10/16/24 History aerosol inhaler amlodipine 10 mg tablet 10 mg PO DAILY 09/20/24 10/16/24 History atorvastatin 40 mg tablet (Lipitor) 40 mg PO QPM #90 tabs 09/20/24 10/16/24 Rx blood sugar diagnostic (Precision 09/20/24 10/13/24 History Xtra Test strips) cetirizine 10 mg tablet 10 mg PO QDAY 09/20/24 10/16/24 History cyanocobalamin (vitamin B-12) 500 500 mcg PO QDAY 09/20/24 10/16/24 History mcg tablet famotidine 20 mg tablet (Pepcid) 20 mg PO QDAY 09/20/24 10/16/24 History fluticasone propionate 50 1 spray intranasal DAILY 09/20/24 10/16/24 History mcg/actuation nasal spray,suspension hydralazine 50 mg tablet 50 mg PO BID 09/20/24 10/16/24 History hydroxyzine HCl 25 mg tablet 25 mg PO QID PRN allergic symptoms 09/20/24 10/16/24 History insulin glargine 100 unit/mL (3 3 unit subcut QDBREAKFAST PRN 09/20/24 10/16/24 History mL) subcutaneous pen (Lantus hyperglycemia Solostar U-100 Insulin) insulin syringe-needle U-100 0.3 09/20/24 10/13/24 History mL 30 gauge x 1/2" (BD Insulin Syringe Ultra-Fine) insulin syringe-needle U-100 1 mL 09/20/24 10/13/24 History 31 gauge x 5/16" (BD Insulin Syringe Ultra-Fine) levothyroxine 75 mcg tablet 75 mcg PO QDAC 09/20/24 10/16/24 History lidocaine 5 % topical patch 1 patch topical DAILY PRN pain 09/20/24 10/16/24 History prazosin 1 mg capsule 2 mg PO QPM 09/20/24 10/16/24 History semaglutide 2 mg/dose (8 mg/3 mL) 2 mg subcut QWEEK 09/20/24 10/16/24 History subcutaneous pen injector (Ozempic) tiotropium 2.5 mcg-olodaterol 2.5 1 puff inhalation BID 09/20/24 10/16/24 History mcg/actuation mist for inhalation (Stiolto Respimat) duloxetine 20 mg capsule,delayed 20 mg PO BID 10/07/24 10/16/24 History release cephalexin 500 mg capsule 500 mg PO QID #28 caps 10/13/24 10/16/24 Rx oxycodone 5 mg tablet 5 - 10 mg (1 - 2 x 5 mg) PO Q6H 10/13/24 10/16/24 Rx PRN pain #14 tabs sulfamethoxazole 800 1 tab PO BID #14 tabs 10/13/24 10/16/24 Rx mg-trimethoprim 160 mg tablet (Bactrim DS) fluticasone propionate 115 2 inh inhalation BID 10/16/24 10/16/24 History mcg-salmeterol 21 mcg/actuation HFA inhaler (Advair HFA) insulin aspart U-100 100 unit/mL 8 - 10 unit subcut BIDWM 10/16/24 10/16/24 History (3 mL) subcutaneous pen (Novolog FlexPen U-100 Insulin aspart) Processed by: Pharmacy Medications reviewed in ED?: No Medication History completed: Yes Patient Interview: Pt interview ONLY source [facility] Statement: As the person ultimately responsible for medication therapy, providers are able to order a medication from an existing home medication list in [facility] via the "Reconcile Routine" prior to Confirmation of that medication by production support developer. Such practice is discouraged except when the physician, in their clinical judgment, deems that a medical need exists for a medication without regard to previous use.
[2024-10-16] MEDS: INSULIN LISPRO 300 UNIT/3 ML PEN SUBQ SCH (12:07)
--- NOTE | 2024-10-16 15:58 | PT Plan of Care ---
Medical/Surgical Past History Past History Medical History Back pain Bradycardia Hyperkalemia Type 2 diabetes mellitus Anxiety Chronic kidney disease, stage 3b Peripheral vascular disease COPD (chronic obstructive pulmonary disease) Hyperlipidemia Gout Surgical History Hx of cataract surgery 2023
[2024-10-16] MEDS: LACTATED RINGERS 1,000 ML IV ONE (17:45)
[2024-10-16] MEDS ORDERED: hydrOXYzine PAMOATE 25 MG CAPSULE PO PRN (18:06)
[2024-10-16] MEDS ORDERED: ALBUTEROL NEB 2.5 MG/3 ML INH PRN (18:17)
[2024-10-16] MEDS: CETIRIZINE 10 MG TABLET PO SCH (18:41)
[2024-10-16] MEDS: FAMOTIDINE 20 MG TABLET PO SCH (18:41)
[2024-10-16] MEDS: CYANOCOBALAMIN 500 MCG TABLET PO SCH (18:41)
[2024-10-16] MEDS ORDERED: IPRATROPIUM 0.2 MG/ML NEB INH SCH (19:00)
[2024-10-16] MEDS ORDERED: BUDESONIDE 0.5 MG/2 ML NEB INH SCH (19:00)
[2024-10-16] MEDS ORDERED: FORMOTEROL FUMARATE NEB 20 MCG/2 ML INH SCH (19:00)
[2024-10-16] MEDS: hydrALAZINE 25 MG TABLET PO SCH (20:47)
[2024-10-16] MEDS: DULoxetine 20 MG CAPSULE PO SCH (20:48)
[2024-10-16] MEDS: oxyCODONE 5 MG TABLET PO PRN (20:48)
[2024-10-16] MEDS: PRAZOSIN 1 MG CAPSULE PO SCH (20:49)
[2024-10-17 05:31] LABS: BASOPHILS % (AUTO) 0.2 %; HCT - HEMATOCRIT 29.5 % (42.0-52.0); LYMPHOCYTES # (AUTO) 0.6 10^3/uL (1.5-3.5); MEAN CORPUSCULAR HEMOGLOBIN 28.4 pg (27.0-31.0); MEAN CORPUSCULAR HGB CONC 33.9 g/dL (32.0-36.0); MEAN CORPUSCULAR VOLUME 83.8 fL (80.0-94.0); MONOCYTES # (AUTO) 0.4 10^3/uL (0.0-1.0); MONOCYTES % (AUTO) 6.7 %; NEUTROPHILS # (AUTO) 4.7 10^3/uL (1.5-6.6); NEUTROPHILS % (AUTO) 82.9 %; PLT - PLATELET COUNT 228 10^3/uL (130-450); RED BLOOD COUNT 3.52 10^6/uL (4.70-6.10); RED CELL DISTRIBUTION WIDTH 12.9 % (12.0-15.0); WHITE BLOOD COUNT 5.7 x10^3/uL (4.8-10.8)
[2024-10-17 05:47] LABS: CALCIUM 8.4 mg/dL (8.5-10.3); POTASSIUM 5.3 mmol/L (3.5-4.5)
[2024-10-17] MEDS: BENZOCAINE/MENTHOL LOZENGE MM PRN (06:53)
[2024-10-17] MEDS: LEVOTHYROXINE 75 MCG TABLET PO SCH (07:53)
[2024-10-17] MEDS: SODIUM CHLORIDE 0.9% 1,000 ML IV ONE (07:53)
--- NOTE | 2024-10-17 08:28 | Discharge Summary ---
Discharge Summary Admit Date: 10/16/24 Discharge Date: 10/17/24 Discharging Provider: Ten Zamora NP Primary Care Provider: Brianne Roberto Code Status: Attempt Resuscitation DIAGNOSES Admission Diagnoses: Acute on chronic kidney failure Back pain Constipation Type 2 diabetes mellitus with complication, with long-term current use of insulin Hypertension Discharge Diagnoses with Status of Each Condition: Acute on chronic kidney failurechronic Back painchronic Constipationresolved Type 2 diabetes mellitus with complication, with long-term current use of insulinchronic Hypertensionchronic HPI History of Present Illness: 84-year-old male H significant for COPD, insulin-dependent diabetes type 2, Presented after fall. He was recently started on oxycodone for a thumb injury sustained in a prior fall. He states he has been constipated since starting this oxycodone, and he was straining on the toilet to try and have a bowel movement. He stood up quickly after this and started to turn and then he passed out. His next memory was EMS arriving on the scene. He denies fever, chills, chest pain, palpitations. In the ER, workup was significant for CT of L-spine showing a fractured osteophyte. He denies any new numbness in his legs more than his baseline neuropathy. He denies urinary/bowel incontinence or retention. He does report a sore throat, states this is from his COPD. HOSPITAL COURSE Hospital Course: Patient was placed in observation and started on an aggressive bowel regimen, he had a large bowel movement late last night. He was given IV fluids, and his creatinine has started to trend down.He was also started on Decadron as he mentioned more dyspnea than usual from his COPD. He also received Lokelma while inpatient Today, he is walking around in the room, feels much better. He has been encouraged to never strain on the toilet again and to start a bowel regimen at home. He was asymptomatically hyponatremic this morning, so he was given a fluid bolus of saline ALLERGIES Allergies Allergy/AdvReac Type Severity Reaction Status Date / Time PAOLO Inhibitors Allergy Mild Dizziness Verified 10/16/24 01:54 codeine Allergy Mild Rash Verified 10/16/24 01:54 exenatide (From Byetta) Allergy Unknown Verified 10/16/24 01:54 fluticasone propionate * Allergy Unknown Verified 10/16/24 01:54 (From Advair Diskus) hydrocodone Allergy Itching Verified 10/16/24 01:54 morphine Allergy Rash Verified 10/16/24 01:54 pollen extracts Allergy Unknown Verified 10/16/24 01:54 pregabalin (From Lyrica) Allergy Unknown Verified 10/16/24 01:54 salmeterol xinafoate * (From Allergy Unknown Verified 10/16/24 01:54 Advair Diskus) MEDICATIONS Ambulatory Orders Medication Instructions Recorded Confirmed Permanent Disabled Placard 09/20/24 10/13/24 adalimumab-bwwd 40 mg/0.8 mL 40 mg subcut Q2W 09/20/24 10/16/24 subcutaneous syringe (Hadlima) albuterol sulfate 90 mcg/actuation 2 puff inhalation QID 09/20/24 10/16/24 aerosol inhaler amlodipine 10 mg tablet 10 mg PO DAILY 09/20/24 10/16/24 atorvastatin 40 mg tablet (Lipitor) 40 mg PO QPM #90 tabs 09/20/24 10/16/24 blood sugar diagnostic (Precision 09/20/24 10/13/24 Xtra Test strips) cetirizine 10 mg tablet 10 mg PO QDAY 09/20/24 10/16/24 cyanocobalamin (vitamin B-12) 500 500 mcg PO QDAY 09/20/24 10/16/24 mcg tablet famotidine 20 mg tablet (Pepcid) 20 mg PO QDAY 09/20/24 10/16/24 fluticasone propionate 50 1 spray intranasal DAILY 09/20/24 10/16/24 mcg/actuation nasal spray,suspension hydralazine 50 mg tablet 50 mg PO BID 09/20/24 10/16/24 hydroxyzine HCl 25 mg tablet 25 mg PO QID PRN allergic symptoms 09/20/24 10/16/24 insulin glargine 100 unit/mL (3 3 unit subcut QDBREAKFAST PRN 09/20/24 10/16/24 mL) subcutaneous pen (Lantus hyperglycemia Solostar U-100 Insulin) insulin syringe-needle U-100 0.3 09/20/24 10/13/24 mL 30 gauge x 1/2" (BD Insulin Syringe Ultra-Fine) insulin syringe-needle U-100 1 mL 09/20/24 10/13/24 31 gauge x 5/16" (BD Insulin Syringe Ultra-Fine) levothyroxine 75 mcg tablet 75 mcg PO QDAC 09/20/24 10/16/24 lidocaine 5 % topical patch 1 patch topical DAILY PRN pain 09/20/24 10/16/24 prazosin 1 mg capsule 2 mg PO QPM 09/20/24 10/16/24 semaglutide 2 mg/dose (8 mg/3 mL) 2 mg subcut QWEEK 09/20/24 10/16/24 subcutaneous pen injector (Ozempic) tiotropium 2.5 mcg-olodaterol 2.5 1 puff inhalation BID 09/20/24 10/16/24 mcg/actuation mist for inhalation (Stiolto Respimat) duloxetine 20 mg capsule,delayed 20 mg PO BID 10/07/24 10/16/24 release cephalexin 500 mg capsule 500 mg PO QID #28 caps 10/13/24 10/16/24 oxycodone 5 mg tablet 5 - 10 mg (1 - 2 x 5 mg) PO Q6H 10/13/24 10/16/24 PRN pain #14 tabs sulfamethoxazole 800 1 tab PO BID #14 tabs 10/13/24 10/16/24 mg-trimethoprim 160 mg tablet (Bactrim DS) fluticasone propionate 115 2 inh inhalation BID 10/16/24 10/16/24 mcg-salmeterol 21 mcg/actuation HFA inhaler (Advair HFA) insulin aspart U-100 100 unit/mL 8 - 10 unit subcut BIDWM 10/16/24 10/16/24 (3 mL) subcutaneous pen (Novolog FlexPen U-100 Insulin aspart) cyclobenzaprine 5 mg tablet 5 mg PO TID PRN muscle spasm #30 10/17/24 tabs dexamethasone 6 mg tablet 6 mg PO DAILY #3 tabs 10/17/24 PHYSICAL EXAM AT DISCHARGE General Appearance: positive No acute distress and Alert Eyes Bilateral: positive Normal inspection and PERRL ENT: positive ENT inspection nml and No signs of dehydration Neck: positive No JVD Respiratory: positive Chest non-tender, No respiratory distress and Breath sounds nml Cardiovascular: positive Regular rate & rhythm Peripheral Pulses: positive 2+ Abdomen: positive Non-tender Back: positive Nml inspection Skin: positive Color nml Extremities: positive Non-tender Neurologic/Psychiatric: positive Oriented x3 LABS 10/17/24 04:45 10/17/24 04:45 FOLLOW UP Follow Up: With PCP TIME SPENT Time Spent in Discharge (Minutes): 25 Discharge Plan Discharge Patient Disposition: 01 Home, Self Care Condition: Stable Medically Cleared Date:: 10/17/24 Prescriptions: New dexamethasone 6 mg tablet 6 mg PO DAILY Qty: 3 0RF cyclobenzaprine 5 mg tablet 5 mg PO TID PRN (Reason: muscle spasm) Qty: 30 0RF Continued fluticasone propionate 50 mcg/actuation spray,suspension 1 spray intranasal DAILY Rx Instructions: Use 1 spray into both nostrils DAILY levothyroxine 75 mcg tablet 75 mcg PO QDAC Rx Instructions: Take 1 tablet once a day Stiolto Respimat 2.5-2.5 mcg/actuation mist 1 puff inhalation BID Rx Instructions: Inhale 1 puff twice a day amlodipine 10 mg tablet 10 mg PO DAILY Rx Instructions: Take 1 tablet once a day hydralazine 50 mg tablet 50 mg PO BID Rx Instructions: Take 1 tablet by mouth three times a day insulin glargine [Lantus Solostar U-100 Insulin] 100 unit/mL (3 mL) insulin pen 3 unit subcut QDBREAKFAST PRN (Reason: hyperglycemia) Rx Instructions: USES IF BG IS OVER 150 sulfamethoxazole-trimethoprim [Bactrim DS] 800-160 mg tablet 1 tab PO BID Qty: 14 0RF cephalexin 500 mg capsule 500 mg PO QID Qty: 28 0RF oxycodone 5 mg tablet 5 - 10 mg PO Q6H PRN (Reason: pain) Qty: 14 0RF insulin aspart U-100 [Novolog FlexPen U-100 Insulin] 100 unit/mL (3 mL) insulin pen 8 - 10 unit subcut BIDWM Rx Instructions: 8 UNITS, UNLESS BG IS OVER 135 THEN 10 UNITS fluticasone propion-salmeterol [Advair HFA] 115-21 mcg/actuation HFA aerosol inhaler 2 inh inhalation BID (DME) insulin syringe-needle U-100 [BD Insulin Syringe Ultra-Fine] 0.3 mL 30 gauge x 1/2" syringe See Rx Instructions .Route Rx Instructions: As directed (DME) insulin syringe-needle U-100 [BD Insulin Syringe Ultra-Fine] 1 mL 31 gauge x 5/16 syringe See Rx Instructions .Route Rx Instructions: As directed cetirizine 10 mg tablet 10 mg PO QDAY Rx Instructions: Take 1 tablet once a day cyanocobalamin (vitamin B-12) 500 mcg tablet 500 mcg PO QDAY Rx Instructions: Take 2 tablets by mouth once a day (DME) [place]ermanent [place] [facility] [place] Instructions .Route Rx Instructions: Use as directed. Diagnosis: Length of Need:99 years Walking limited by orthopedic condition. hydroxyzine HCl 25 mg tablet 25 mg PO QID PRN (Reason: allergic symptoms) Rx Instructions: Take 1 tablet by mouth four times a day as needed lidocaine 5 % adhesive patch,medicated 1 patch topical DAILY PRN (Reason: pain) Rx Instructions: Apply 1 patch to skin once a day as needed Ozempic 2 mg/dose (8 mg/3 mL) pen injector 2 mg subcut QWEEK Rx Instructions: ON FRIDAYS famotidine [Pepcid] 20 mg tablet 20 mg PO QDAY Rx Instructions: Take 1 tablet once a day prazosin 1 mg capsule 2 mg PO QPM Rx Instructions: Take 2 capsules by mouth every night (DME) Precision Xtra Test Strip See Rx Instructions .Route Rx Instructions: As directed albuterol sulfate 90 mcg/actuation HFA aerosol inhaler 2 puff inhalation QID Rx Instructions: Inhale 2 puff four times a day Hadlima 40 mg/0.8 mL syringe 40 mg subcut Q2W Rx Instructions: Inject 40mg every 2 weeks ON THURSDAY atorvastatin [Lipitor] 40 mg tablet 40 mg PO QPM Qty: 90 4RF duloxetine 20 mg capsule,delayed release(DR/EC) 20 mg PO BID Diet: Regular Health Concerns: You are a 84-year-old male with past medical history significant for back pain, recently started on oxycodone. You came in after experiencing a fall at home. From what she told me, it sounds like you board down on the toilet too hard and got up too quickly afterwards. Straining on the toilet can stimulate the vagus nerve, which will cause your heart rate to drop and cause you to pass out. I would strongly encourage you to not do that anymore, and to increase the fiber in your diet and consider taking a stool softener. These are all available [id number]. I would like for you to work on drinking more water, as long as it does not cause any excess swelling in your legs. I would like you to increase your mobility, as this will also help keep your bowel movements regular. You mention some dyspnea worse than normal with your COPD, I have ordered a course of steroids for another 3 days. The steroid will also help with your back pain. I would encourage you to follow-up with your primary care provider, and consider physical therapy for your back pain if it continues. I will also prescribe you a muscle relaxer Plan of Treatment: Steroid course Muscle relaxer Stool softener Avoid straining on the toilet Print Language: Bulgarian Patient Instructions: Constipation
[2024-10-17] MEDS: FLUTICASONE NASAL SPRAY NAS SCH (08:57)
[2024-10-17] MEDS: amLODIPine 5 MG TABLET PO SCH (08:58)
[2024-10-17] MEDS: ENOXAPARIN 30 MG/0.3 ML SYRINGE SUBQ SCH (08:59)
[2024-10-17 10:08] VITALS: O2SAT 98
[2024-10-17] MEDS ORDERED: ATORVASTATIN 40 MG TABLET PO SCH (21:00)
== END 2024-10-17 11:45 | disposition home or self-care (01) ==
LOC: ED 01:45 → MS2 01:45
PROVIDERS: ADMIT Nurse Practitioner Acute Care; ATTEND Nurse Practitioner Acute Care